=== PATIENT | female | born 1930 | race Hispanic/Latino ===

== ENCOUNTER 2018-05-02 16:30 | Emergency (ER) | payer MEDICARE ==
[~2018-05-02] VITALS: Ht 152.4 cm; Wt 38.1 kg
--- OUTSIDE RECORDS SUMMARY | 2018-05-02 16:33 | XMS REPORT | Continuity of Care Document ---
Author Author [facility] Interface Address Unknown Phone Unavailable Problems Problem Status Onset Date Classification Date Reported Comments Source J47.9 Active 01/30/2018 [facility] Calculus of gallbladder with chronic cholecystitis without obstruction 07/18/2017 10/08/2017 [facility] Generalized abdominal pain 07/01/2017 09/30/2017 [facility] UNK Active 06/30/2017 [facility] UNK Active 06/30/2017 [facility] DX: R63.4=ABNORMAL WEIGHT LOSS, R10.84=G Active 06/20/2017 [facility] DX: J47.9=BRONCHIECTASIS, UNCOMPLICATED Active 02/27/2017 [facility] DX: J47.9=BRONCHIECTASIS, UNCOMPLICATED Active 02/27/2017 [facility] PNEUMONIA Active 09/18/2016 [facility] WEAKNESS Active 09/18/2016 [facility] Hip pain<sup>8, 9, 10</sup> Active 07/11/2014 Problem 2017 Data migrated from [employer] on 10/11/14. [facility] Rib pain<sup>15, 16, 17</sup> Active 07/11/2014 Problem 2017 Data migrated from [employer] on 10/11/14. [facility] Rib pain<sup>16, 17, 18</sup> Active 07/11/2014 Problem 08/03/2015 Data migrated from [employer] on 10/11/14. [facility] Lightheadedness<sup>11</sup> Active 02/07/2014 Problem 2017 Data migrated from [employer] on 10/11/14. [facility] Dyspnea<sup>5</sup> Active 01/18/2014 Problem 2017 Data migrated from [employer] on 10/11/14. [facility] Neck pain<sup>12</sup> Active 01/18/2014 Problem 2017 Data migrated from [employer] on 10/11/14. [facility] Gastroesophageal reflux disease<sup>7</sup> Active 08/23/2013 Problem 2017 Data migrated from [employer] on 10/11/14. [facility] Pleuritic pain<sup>14</sup> Active 04/26/2013 Problem 2017 Data migrated from [employer] on 10/11/14. [facility] PNEUMONIA, CHEST PAIN Active 04/13/2013 [facility] CHEST PAINS Active 04/13/2013 [facility] Blepharitis<sup>2</sup> Active 01/07/2013 Problem 2017 Data migrated from [employer] on 10/11/14. [facility] Disorder of skin<sup>4</sup> Active 01/07/2013 Problem 2017 Data migrated from [employer] on 10/11/14. [facility] SCREENING Active 12/02/2012 [facility] Epigastric pain<sup>6</sup> Active 12/02/2011 Problem 2017 Data migrated from [employer] on 10/11/14. [facility] Varicose veins of lower extremity<sup>18</sup> Active 12/02/2011 Problem 2017 Data migrated from [employer] on 10/11/14. [facility] Varicose veins of lower extremity<sup>19</sup> Active 12/02/2011 Problem 08/03/2015 Data migrated from [employer] on 10/11/14. [facility] Preoperative procedures<sup>15</sup> Resolved 02/15/2011 Problem 08/03/2015 Data migrated from [employer] on 11/25/14. [facility] Blood chemistry abnormal<sup>3</sup> Active 05/30/2010 Problem 2017 Data migrated from [employer] on 10/11/14. [facility] Benign essential hypertension<sup>1</sup> Active 04/19/2008 Problem 2017 Data migrated from [employer] on 10/11/14. [facility] GI bleeding Resolved Problem 08/03/2015 [facility] HTN Resolved Problem 04/17/2013 [facility] HTN - Hypertension Resolved Problem 04/17/2013 [facility] Final: Other Acute Sinusitis 01/21/2014 [facility] Final: Other Dyspnea and Respiratory Abnormality 01/21/2014 [facility] Final: Cervicalgia 01/21/2014 [facility] HTN - Hypertension Resolved Problem 07/14/2014 [facility] High blood pressure Resolved Problem 2017 [facility] HTN Resolved Problem 2017 [facility] HTN - Hypertension Resolved Problem 2017 [facility] Osteoporosis<sup>13</sup> Active Problem 2017 Data migrated from [employer] on 10/11/14[facility] Severe protein-calorie malnutrition Active Problem 2017 [facility] Abnormal weight loss 09/30/2017 [facility] Cyst of kidney, acquired 09/30/2017 [facility] Splenomegaly, not elsewhere classified 09/30/2017 [facility] Diverticulosis of large intestine without perforation or abscess without bleeding 09/30/2017 [facility] Diaphragmatic hernia without obstruction or gangrene 09/30/2017 [facility] Fatty liver, not elsewhere classified 09/30/2017 [facility] Bronchiectasis, uncomplicated 09/30/2017 [facility] Atherosclerosis of aorta 09/30/2017 [facility] Other disorders of lung 09/30/2017 [facility] Essential hypertension 10/08/2017 [facility] Anemia, unspecified 10/08/2017 [facility] Gastro-esophageal reflux disease without esophagitis 10/08/2017 [facility] Other half-way drug therapy 10/08/2017 [facility] PNEUMONIA, ORGANISM NOS Active [facility] 461.8 Active [facility] 786.50, 719.45 Active [facility] CHEST PAIN NOS Active [facility] JOINT PAIN-PELVIS Active [facility] PALPITATIONS Active [facility] PAIN IN NECK Active [facility] PAIN, UNSPECIFIED Active [facility] PNEUMONIA, UNSPECIFIED ORGANISM Active [facility] BRONCHIECTASIS, UNCOMPLICATED Active [facility] ABNORMAL WEIGHT LOSS Active [facility] GENERALIZED ABDOMINAL PAIN Active [facility] Medications Medication Details Route Status Patient Instructions Ordering Provider Order Date Source 24 HR Diltiazem Hydrochloride 240 MG Extended Release Capsule [Cartia] See Instructions, # 90 unknown unit, TAKE ONE CAPSULE BY MOUTH DAILY FOR BLOOD PRESSURE, Pharmacy: [facility] [id number] Active 08/09/[facility] Ondansetron 4 MG Disintegrating Tablet [Zofran] 4 mg=1 tab, PO, Q4H, PRN Nausea, # 30 tab, 0 Refill(s) Active 07/04/2017 [facility] Albuterol 0.833 MG/ML / Ipratropium [place] 0.167 MG/ML Inhalant Solution [DuoNeb] 3 ml, Route: NEB, Drug Form: SOLN, Dosing Weight 40.71, kg, ONCE, PRN Respiratory Protocol, Start date: 07/02/17 15:31:00 [employer] SPLITTER Inactive 07/02/2017 [facility] Oxycodone Hydrochloride 5 MG Oral Tablet 5 mg, Route: PO, Drug form: TAB, ONCE, Dosing Weight 40.71, kg, PRN Pain Score 4-6, Start date: 07/02/17 14:02:00 [employer] SPLITTER Inactive 07/02/2017 [facility] Naloxone 0.4 mg, Route: IVP, Q2MIN, Dosing Weight 40.71, kg, PRN Narcotic Reversal, Start date: 07/02/17 13:02:00 [employer]ST[employer] SPLITTER, Duration: 8 doses or times, Stop date: Limited # of times Inactive 07/02/2017 [facility] Flumazenil 0.2 mg, Route: IVP, PRN, Dosing Weight 40.71, kg, PRN Benzodiazepine Reversal, Initial dose, Start date: 07/02/17 13:02:00 [employer]ST[employer] SPLIT[employer], Duration: 30 day, Stop date: 08/01/17 14:01:00 CDT Inactive 07/02/2017 [facility] Ondansetron 4 mg, Route: IVP, ONCE, Dosing Weight 40.71, kg, PRN Nausea & Vomiting, Start date: 07/02/17 13:02:00 [employer]ST[employer] SPLITTER Inactive 07/02/2017 [facility] Meperidine 12.5 mg, Route: IVP, Q30Min, Dosing Weight 40.71, kg, PRN Other -See Comment, For shivering, Start date: 07/02/17 13:02:00 [employer]ST[employer] SPLITTER, Duration: 2 doses or times, Stop date: Limited # of times Inactive 07/02/2017 [facility] Albuterol 0.83 MG/ML Inhalant Solution 2.49 mg, Route: NEB, Q20Min, Dosing Weight 40.71, kg, PRN Wheezing, Priority: STAT, Start date: 07/02/17 13:02:00 [employer]ST[employer] SPLITTER, Duration: 30 day, Stop date: 08/01/17 14:01:00 CDT Inactive 07/02/2017 [facility] Diphenhydramine 12.5 mg, Route: IVP, Drug form: INJ, Q6H, Dosing Weight 40.71, kg, PRN Itching, Start date: 07/02/17 13:02:00 [employer]ST[employer] SPLITTER, Duration: 30 day, Stop date: 08/01/17 13:01:00 CDT Inactive 07/02/2017 [facility] Promethazine 6.25 mg, Route: IVPB, ONCE, Dosing Weight 40.71, kg, PRN Nausea & Vomiting, Start date: 07/02/17 13:02:00 [employer]ST[employer] SPLITTER Inactive 07/02/2017 [facility] Labetalol 10 mg, Route: IVP, Q5Min, Dosing Weight 40.71, kg, PRN Elevated BP, Start date: 07/02/17 13:02:00 S[employer]STONE SPLITTER, Duration: 5 doses or times, Stop date: Limited # of times Inactive 07/02/2017 [facility] Hydralazine 10 mg, Route: IVP, Q20Min, Dosing Weight 40.71, kg, PRN Elevated BP, Start date: 07/02/17 13:02:00 S[employer]STONE SPLITTER, Duration: 2 doses or times, Stop date: Limited # of times Inactive 07/02/2017 [facility] esmolol 10 mg, Route: IVP, Q5Min, Dosing Weight 40.71, kg, PRN Other -See Comment, Start date: 07/02/17 13:02:00 S[employer]STONE SPLITTER, Duration: 5 doses or times, Stop date: Limited # of times Inactive 07/02/2017 [facility] Calcium Chloride 0.0014 MEQ/ML / Potassium Chloride 0.004 MEQ/ML / Sodium Chloride 0.103 MEQ/ML / Sodium Lactate 0.028 MEQ/ML Injectable Solution 1,000 mL, Rate: 125 ml/hr, Infuse over: 8 hr, Route: IV, Dosing Weight 40.71 kg, Total Volume: 1,000, Start date: 07/02/17 13:02:00 [employer]ST[employer] SPLITTER, Duration: 30 day, Stop date: 08/01/17 13:01:00 CDT, 1.31, m2 Inactive 07/02/2017 [facility] Fentanyl 25 microgram, Route: IVP, Q5Min, Dosing Weight 40.71, kg, PRN Pain Score 4-6, Priority: Routine, Start date: 07/02/17 13:02:00 [employer]ST[employer] SPLIT[employer], Duration: 4 doses or times, Stop date: Limited # of times Inactive 07/02/2017 [facility] neostigmine (ANES) Route: IV, Drug form: INJ, ONCE, Stop date: 07/02/17 12:52:00 [employer]ST[employer] SPLITTER Inactive 07/02/2017 [facility] glycopyrrolate (ANES) Route: IV, Drug form: INJ, ONCE, Stop date: 07/02/17 12:52:00 [employer]ST[employer] SPLITTER Inactive 07/02/2017 [facility] hydrALAZINE (ANES) Route: IV, Drug form: INJ, ONCE, Stop date: 07/02/17 12:52:00 [employer]ST[employer] SPLITTER Inactive 07/02/2017 [facility] Docusate Sodium 100 MG Oral Capsule [Colace] 100 mg=1 cap, PO, BID, PRN Constipation, # 20 cap, 0 Refill(s) Active 07/02/2017 [facility] tramadol hydrochloride 50 MG Oral Tablet 50 mg=1 tab, PO, Q6H, PRN Pain, X 10 day, # 40 tab, 0 Refill(s) No Longer Active 07/02/2017 [facility] ondansetron (ANES) Route: IV, Drug form: INJ, ONCE, Stop date: 07/02/17 12:40:00 [employer]STONE SPLITTER Inactive 07/02/2017 [facility] esmolol (ANES) Route: IV, Drug form: INJ, ONCE, Stop date: 07/02/17 12:40:00 [employer]ST[employer] SPLITTER Inactive 07/02/2017 [facility] rocuronium (ANES) Route: IV, Drug form: INJ, ONCE, Stop date: 07/02/17 12:35:00 [employer]ST[employer] SPLITTER Inactive 07/02/2017 [facility] propofol (ANES) Route: IV, Drug form: INJ, ONCE, Stop date: 07/02/17 12:35:00 [employer]ST[employer] SPLITTER Inactive 07/02/2017 [facility] fentaNYL (ANES) Route: IV, Drug form: INJ, ONCE, Stop date: 07/02/17 12:35:00 [employer]ST[employer] SPLITTER Inactive 07/02/2017 [facility] lidocaine (ANES) Route: IV, Drug form: INJ, ONCE, Stop date: 07/02/17 12:35:00 [employer]ST[employer] SPLITTER Inactive 07/02/2017 [facility] Lactated Ringers Injection IV (ANES) 1000 mL Route: IV, Total Volume: 1,000, Start date: 07/02/17 11:39:00 S[employer]STONE SPLITTER, Stop date: 07/02/17 12:39:00 [employer]ST[employer] SPLITTER Inactive 07/02/2017 [facility] ceFAZolin (ANES) 1000 mg Route: IV, Drug form: INJ, Start date: 07/02/17 11:39:00 SANDSTONE SPLITTER, Stop date: 07/02/17 12:39:00 [employer]ST[employer] SPLITTER Inactive 07/02/2017 [facility] Albuterol 0.833 MG/ML / Ipratropium [place] 0.167 MG/ML Inhalant Solution 3 mL, Route: NEB, Dosing Weight 40.71, kg, ONCE, STAT, Start date: 07/02/17 11:08:00 SANDSTONE SPLITTER, Stop date: 07/02/17 11:08:00 S[employer]STONE SPLITTER Inactive 07/02/2017 [facility] Calcium Chloride 0.0014 MEQ/ML / Potassium Chloride 0.004 MEQ/ML / Sodium Chloride 0.103 MEQ/ML / Sodium Lactate 0.028 MEQ/ML Injectable Solution 1,000 mL, Rate: 25 ml/hr, Infuse over: 40 hr, Route: IV, Dosing Weight 40.71 kg, Total Volume: 1,000, Start date: 07/02/17 11:08:00 [employer]ST[employer] SPLITTER, Duration: 30 day, Stop date: 08/01/17 11:07:00 CDT, 1.31, m2 Inactive 07/02/2017 [facility] Vitamin D3 1000 intl units oral tablet 1,000 IntlUnit=1 tab, PO, Daily, # 30 tab, 0 Refill(s) Active 07/01/2017 [facility] Ancef 2 gm, Route: IVPB, ONCE, Dosing Weight 40.71, kg, Start date: 07/01/17 11:57:00 S[employer]STONE SPLITTER, Stop date: 07/01/17 11:57:00 SANDSTONE SPLITTER, Surgical Prophylaxis Only; For patients No Longer Active 07/01/2017 [facility] Omnipaque 300 100 mL, Route: IV, Drug Form: SOLN, ONCE, Start date: 06/24/17 10:33:00 SANDSTONE SPLITTER, Stop date: 06/24/17 10:33:00 CSTNotes: (Same as:Omnipaque 300). WASTE: F/P - Black; E - Municipal Trash Bin Inactive 06/24/2017 [facility] celecoxib 200 MG Oral Capsule [Celebrex] 200 mg=1 cap, PO, BID, 0 Refill(s) Active 05/30/2017 [facility] azithromycin 500 mg oral tablet 500 mg, 2 tab, Route: PO, Drug form: TAB, Q-M-W-F, Dosing Weight 42.33, kg, Start date: 09/23/16 9:00:00 CDT, Duration: 30 day, Stop date: 10/21/16 9:00:00 CDTNotes: Take 1 hour before or 2 hours after meals. (Same As: Zithromax) No Longer Active 09/23/2016 [facility] Lisinopril 5 mg, Route: PO, Daily, Dosing Weight 42.33, kg, Start date: 09/22/16 9:00:00 CDT, Duration: 30 day, Stop date: 10/21/16 9:00:00 CDT No Longer Active 09/22/2016 [facility] Calcium Carbonate 1250 MG / Cholecalciferol 125 UNT Oral Tablet 1 tab, Route: PO, Drug Form: TAB, Dosing Weight 42.33, kg, Daily, Start date: 09/22/16 9:00:00 CDT, Duration: 30 day, Stop date: 10/21/16 9:00:00 CDTNotes: (Same As: Hilary-D, OsCal-D, Oyster Calcium) Inactive 09/22/2016 [facility] Brimonidine tartrate 2 MG/ML / Timolol 5 MG/ML Ophthalmic Solution [Combigan] 1 drp, Route: OPTH, Q12H, Drug form: SOLN, Start date: 09/21/16 21:00:00 CDT, Duration: 30 day, Stop date: 10/21/16 9:00:00 CDT Inactive 09/22/2016 [facility] Lisinopril 5 mg, 1 tab, Route: PO, Drug form: TAB, Daily, Dosing Weight 42.33, kg, Priority: STAT, Start date: 09/21/16 17:36:00 CDT, Duration: 30 day, Stop date: 10/21/16 9:00:00 CDTNotes: (Same as: Prinivil, Zestril) No Longer Active 09/21/2016 [facility] Lisinopril 5 mg, PO, Daily, 0 Refill(s) Active 09/21/2016 [facility] Hydralazine 10 mg, 0.5 mL, Route: IVP, Drug form: INJ, Q6H, Dosing Weight 42.33, kg, PRN Elevated BP, Start date: 09/21/16 16:59:00 CDT, Duration: 30 day, Stop date: 10/21/16 16:58:00 CDTNotes: (Same as: Apresol ine) Push over 5 minutes No Longer Active 09/21/2016 [facility] aspirin 81 mg tablet, enteric coated 81 mg=1 tab, PO, Daily, 0 Refill(s) On Hold 09/21/2016 [facility] doxycycline monohydrate 100 mg oral tablet 100 mg=1 tab, PO, Q12H, X 7 day, # 14 tab, 0 Refill(s), Pharmacy: [place] [id number] On Hold 09/21/2016 [facility] Rifampin 600 mg, 2 cap, Route: PO, Drug form: CAP, Q-M-W-F, Dosing Weight 42.33, kg, Start date: 09/20/16 18:00:00 CDT, Duration: 30 day, Stop date: 10/18/16 9:00:00 CDTNotes: (Same as: Rifadin) No Longer Active 09/20/2016 [facility] Ethambutol 1,200 mg, 3 tab, Route: PO, Drug form: TAB, Q-M-W-F, Dosing Weight 42.33, kg, Start date: 09/20/16 18:00:00 CDT, Duration: 30 day, Stop date: 10/18/16 9:00:00 CDTNotes: (Same as: Myambutol) No Longer Active 09/20/2016 [facility] Fluticasone propionate 0.05 MG/ACTUAT Metered Dose Nasal [place] 2 spray, Route: NASAL, Drug Form: SPRY, Dosing Weight 43.182, kg, Daily, Start date: 09/20/16 9:00:00 CDT, Duration: 30 day, Stop date: 10/19/16 9:00:00 CDTNotes: (Same as: Flonase) No Longer Active 09/20/2016 [facility] Rocephin 1 gm, Route: IVPB, [id number], Dosing Weight 43.182, kg, Start date: 09/20/16 0:00:00 CDT, Duration: 30 day, Stop date: 10/19/16 0:00:00 CDTNotes: (Same As: Rocephin). Use with 100 mL NS and infuse over 30 min MEDICATION WASTE Product Size: 1000 mg Product Wasted: ___ mg Inactive 09/20/2016 [facility] Brimonidine tartrate 2 MG/ML / Timolol 5 MG/ML Ophthalmic Solution [Combigan] 1 drp, Route: OPTH, Q12H, Drug form: SOLN, Start date: 09/19/16 21:00:00 CDT, Duration: 30 day, Stop date: 10/19/16 9:00:00 CDT Inactive 09/20/2016 [facility] Sodium Chloride 3% inhalation solution 4 mL, Route: NEB, Drug Form: SOLN, ONCE, Start date: 09/19/16 19:24:00 CDT, Stop date: 09/19/16 19:24:00 CDTNotes: SEE RT DOCUMENTATION (Same as: Hypertonic Saline 3%, Inhalation) Inactive 09/20/2016 [facility] Sodium Chloride 1.2 MEQ/ML Inhalant Solution 4 mL, Route: NEB, Drug Form: AERO, Dosing Weight 42.33, kg, ONCE, Start date: 09/19/16 18:40:00 CDT, Stop date: 09/19/16 18:40:00 CDT, Pediatric Dosing Inactive 09/19/2016 [facility] Cyclosporine 1 drp, Route: BOTH EYES, BID, Drug form: DROP, Start date: 09/19/16 17:00:00 CDT, Duration: 30 day, Stop date: 10/19/16 9:00:00 CDTNotes: (Same as: Restasis) No Longer Active 09/19/2016 [facility] timolol ophthalmic 1 drp, Route: OPTH, BID, Drug form: SOLN, Start date: 09/19/16 17:00:00 CDT, Duration: 30 day, Stop date: 10/19/16 9:00:00 CDTNotes: (Same As: Timoptic, Betimol) No Longer Active 09/19/2016 [facility] brimonidine ophthalmic 1 drp, Route: OPTH, BID, Drug form: SOLN, Start date: 09/19/16 17:00:00 CDT, Duration: 30 day, Stop date: 10/19/16 9:00:00 CDTNotes: (Same As: Alphagan) No Longer Active 09/19/2016 [facility] Cartia XT 240 mg, 1 cap, Route: PO, Drug form: ERCAP, Daily, Dosing Weight 43.182, kg, Start date: 09/19/16 11:00:00 CDT, Duration: 30 day, Stop date: 10/19/16 9:00:00 CDTNotes: (Same as: Cardizem CD) Before meals. DO NOT CRUSH. No Longer Active 09/19/2016 [facility] Aspirin Enteric Coated 81 mg, 1 tab, Route: PO, Drug form: ECTAB, Daily, Dosing Weight 43.182, kg, Start date: 09/19/16 11:00:00 CDT, Duration: 30 day, Stop date: 10/19/16 9:00:00 CDTNotes: Do not crush or chew. (Same As: Ecotrin) No Longer Active 09/19/2016 [facility] Albuterol 0.833 MG/ML / Ipratropium [place] 0.167 MG/ML Inhalant Solution [DuoNeb] 3 ml, Route: NEB, Drug Form: SOLN, Dosing Weight 43.182, kg, PRN, PRN Respiratory Protocol, Start date: 09/19/16 9:37:00 CDT, Duration: 30 day, Stop date: 10/19/16 9:36:00 CDTNotes: (Same as: Duoneb) No Longer Active 09/19/2016 [facility] Azithromycin 500 MG Oral Tablet [Zithromax] 500 mg, 2 tab, Route: PO, Drug form: TAB, Daily, Dosing Weight 43.182, kg, Start date: 09/19/16 6:00:00 CDT, Duration: 30 day, Stop date: 10/18/16 6:00:00 CDTNotes: Take 1 hour before or 2 hours after meals. (Same As: Zithromax) No Longer Active 09/19/2016 [facility] Morphine 2 mg, 1 mL, Route: IVP, Drug form: INJ, Q4H, Dosing Weight 43.182, kg, PRN Pain Score 7-10, Start date: 09/19/16 1:37:00 CDT, Duration: 30 day, Stop date: 10/19/16 1:36:00 CDTNotes: (Same as:MORPhine Sulfate) No Longer Active 09/19/2016 [facility] Ondansetron 4 mg, 2 mL, Route: IVP, Drug form: INJ, Q6H, Dosing Weight 43.182, kg, PRN Nausea & Vomiting, Start date: 09/19/16 1:37:00 CDT, Duration: 30 day, Stop date: 10/19/16 1:36:00 CDTNotes: (Same as: Shalom) MEDICATION WASTE Product Size: 4 mg Product Wasted: ___ mg No Longer Active 09/19/2016 [facility] Nitroglycerin 0.4 MG Sublingual Tablet 0.4 mg, 1 tab, Route: SL, Drug form: TAB, Q5Min, Dosing Weight 43.182, kg, PRN Chest Pain, Start date: 09/19/16 0:49:00 CDT, Duration: 3 doses or times, Stop date: Limited # of timesNotes: (Same as:Nitroquick, Nitrostat) "Do Not Crush" Sublingual tablet No Longer Active 09/19/2016 [facility] Atropine 0.5 mg, 5 mL, Route: IVP, Drug form: INJ, ONCE, Dosing Weight 43.182, kg, PRN Bradycardia, Start date: 09/19/16 0:49:00 CDT No Longer Active 09/19/2016 [facility] Ceftriaxone 1 gm, Route: IVPB, ONCE, Dosing Weight 43.182, kg, Priority: STAT, Start date: 09/18/16 23:09:00 CDT, Stop date: 09/18/16 23:09:00 CDTNotes: (Same As: Rocephin). Use with 100 mL NS and infuse over 30 m in MEDICATION WASTE Product Size: 1000 mg Product Wasted: ___ mg Inactive 09/19/2016 [facility] Sodium Chloride 0.154 MEQ/ML Injectable Solution 1,000 mL, Rate: 75 ml/hr, Infuse over: 13.3 hr, Route: IV, Dosing Weight 43.182 kg, Total Volume: 1,000, Priority: STAT, Start date: 09/18/16 23:09:00 CDT, Duration: 1 doses or times, Stop date: 09/19/16 12:26:00 CDT Inactive 09/19/2016 [facility] Azithromycin 500 mg, Route: IVPB, ONCE, Dosing Weight 43.182, kg, Priority: STAT, Start date: 09/18/16 23:09:00 CDT, Stop date: 09/18/16 23:09:00 CDTNotes: (Same As: Zithromax IV) No Longer Active 09/19/2016 [facility] Saline Flush 0.9% 10 mL, Route: IVP, Drug Form: INJ, Dosing Weight 43.182, kg, PRN, PRN Line Flush, Start date: 09/18/16 14:47:00 CDT, Duration: 30 day, Stop date: 10/18/16 14:46:00 CDTNotes: (Same as: BD Posiflush) No Longer Active 09/18/2016 [facility] levofloxacin 500 mg oral tablet 500 mg=1 tab, PO, Daily, # 5 tab, 0 Refill(s) Active Elvis 04/15/2013 [facility] benzonatate 100 mg oral capsule 100 mg=1 cap, PO, TID, Cough, # 10 cap, 0 Refill(s) Active Elvis 04/15/2013 [facility] calcium-vitamin D 500 mg-125 units oral tablet 1 tab, Route: PO, Drug Form: TAB, Dosing Weight 52.273, kg, Daily, Start date: 04/14/13 9:00:00, Duration: 30 day, Stop date: 05/13/13 9:00:00(Same As: Hilary-D, OsCal- D, Oyster Calcium) No Longer Active Alessandro 04/14/2013 [facility] cycloSPORINE ophthalmic 1 drp, Route: BOTH EYES, BID, Drug form: DROP, Start date: 04/14/13 9:00:00, Duration: 30 day, Stop date: 05/13/13 17:00:00(Same as: Restasis) No Longer Active Alessandro 04/14/2013 [facility] aspirin 81 mg, 1 tab, Route: PO, Drug form: ECTAB, Daily, Dosing Weight 52.273, kg, Start date: 04/14/13 9:00:00, Duration: 30 day, Stop date: 05/13/13 9:00:00Do not crush or chew. (Same As: Ecotrin) No Longer Active Alessandro 04/14/2013 [facility] Combigan ophthalmic solution 1 drp, Route: BOTH EYES, Q12H, Drug form: SOLN, Start date: 04/13/13 21:00:00, Duration: 30 day, Stop date: 05/13/13 9:00:00 Inactive Alessandro 04/14/2013 [facility] Dilt-XR 240 mg, 1 cap, Route: PO, Drug form: ERCAP, Bedtime, Dosing Weight 52.273, kg, Start date: 04/13/13 21:00:00, Duration: 30 day, Stop date: 05/12/13 21:00:00(Same as: Cardizem CD) Before meals. DO NOT CRUSH. No Longer Active Alessandro 04/14/2013 [facility] timolol ophthalmic 1 drp, Route: BOTH EYES, Q12H, Drug form: SOLN, Start date: 04/13/13 21:00:00, Duration: 30 day, Stop date: 05/13/13 9:00:00(Same As: Timoptic, Betimol) No Longer Active Alessandro 04/14/2013 [facility] brimonidine ophthalmic 1 drp, Route: BOTH EYES, Q12H, Drug form: SOLN, Start date: 04/13/13 21:00:00, Duration: 30 day, Stop date: 05/13/13 9:00:00(Same As: Alphagan) No Longer Active Alessandro 04/14/2013 [facility] ceftriaxone + Sodium Chloride 0.9% IV 100 mL 1 gm, Route: IVPB, [id number], Dosing Weight 52.273, kg, Priority: Routine, Start date: 04/13/13 19:00:00, Duration: 30 day, Stop date: 05/12/13 19:00:00(Same As: Rocephin). Use with 100ml NS mini-bag PLUS and infuse over 30 min No Longer Active Al-Azzejosie 04/14/2013 [facility] azithromycin 500 mg, 250 mL, Route: IVPB, Drug form: PDR/INJ, [id number], Dosing Weight 52.273, kg, Priority: Routine, Start date: 04/13/13 19:00:00, Duration: 30 day, Stop date: 05/12/13 19:00:00Same as: Zithromax No Longer Active Al-Azzeh 04/14/2013 [facility] Restoril 7.5 mg, 1 cap, Route: PO, Drug form: CAP, Bedtime, PRN Sleep, Start date: 04/13/13 18:49:00, Duration: 30 day, Stop date: 05/13/13 18:48:00(Same As: Restoril) No Longer Active Alessandro 04/14/2013 [facility] DuoNeb inhalation solution 3 ml, Route: INHALATION, Drug Form: SOLN, Dosing Weight 52.273, kg, RQ4H, PRN Respiratory Protocol, Start date: 04/13/13 18:46:00, Duration: 30 day, Stop date: 05/13/13 18:45:00(Same as: Duoneb) No Longer Active Alessandro 04/14/2013 [facility] Ambien 5 mg, Route: PO, Bedtime, Dosing Weight 52.273, kg, PRN Sleep, Start date: 04/13/13 18:45:00, Duration: 30 day, Stop date: 05/13/13 18:44:00 Inactive Alessandro 04/14/2013 [facility] Tessalon Perles 100 mg, 1 cap, Route: PO, Drug form: CAP, TID, Dosing Weight 52.273, kg, PRN Cough, Start date: 04/13/13 18:44:00, Duration: 30 day, Stop date: 05/13/13 18:43:00(Same As: Tessalon Perles) "Do Not Crush" No Longer Active Alessandro 04/14/2013 [facility] nitroglycerin 0.4 mg sublingual tablet 0.4 mg, 1 tab, Route: SL, Drug form: TAB, Q5Min, PRN Chest Pain, Start date: 04/13/13 18:43:00, Duration: 30 day, Stop date: 05/13/13 18:42:00(Same as:Nitroquick, Nitrostat) "Do Not Crush" Sublingual tablet No Longer Active Alessandro 04/14/2013 [facility] atropine 0.5 mg, 5 mL, Route: IVP, Drug form: INJ, PRN, PRN Bradycardia, Start date: 04/13/13 18:43:00, Duration: 30 day, Stop date: 05/13/13 18:42:00 No Longer Active Alessandro 04/14/2013 [facility] ondansetron 4 mg, 2 mL, Route: IVP, Drug form: INJ, Q6H, Dosing Weight 52.273, kg, PRN Nausea & Vomiting, Start date: 04/13/13 18:13:00, Duration: 30 day, Stop date: 05/13/13 18:12:00(Same as: Zofran) No Longer Active Al-Azzeh 04/14/2013 [facility] acetaminophen 650 mg, 2 tab, Route: PO, Drug form: TAB, Q4H, Dosing Weight 52.273, kg, PRN Pain Score 1-3, For fever > 100.4. Not to exceed 4 grams in 24 hours, Start date: 04/13/13 18:13:00, Duration: 30 day, Sto p date: 05/13/13 18:12:00Do not exceed 4 gm/day. (Same as: Tylenol) No Longer Active Al-Azzeh 04/14/2013 [facility] Restasis 0.05% ophthalmic emulsion 1 drp, BOTH EYES, BID, # 1 pkg, 0 Refill(s) Active 04/13/2013 [facility] Combigan ophthalmic solution 1 drp, OPTH, Q12H, # 10 ml, 0 Refill(s) Active 04/13/2013 [facility] calcium-vitamin D 500 mg-125 units oral tablet 1 tab, PO, Daily, # 250 tab, 0 Refill(s) Active 04/13/2013 [facility] Aspirin Enteric Coated 81 mg oral delayed release tablet 81 mg=1 tab, PO, Daily, 0 Refill(s) Active 04/13/2013 [facility] Dilt-XR 240 mg/24 hours oral capsule, extended release 240 mg=1 cap, PO, Bedtime, 0 Refill(s) Active 04/13/2013 [facility] Celebrex 200 mg oral capsule 200 mg=1 cap, PO, Daily, Pain, # 10 cap, 0 Refill(s) Active 04/13/2013 [facility] DuoNeb inhalation solution 3 ml, Route: INHALATION, Drug Form: SOLN, Dosing Weight 52.273, kg, PRN, PRN Respiratory Protocol, Start date: 12/03/13 14:27:00, Duration: 30 day, Stop date: 05/13/13 14:26:00(Same as: Duoneb) No Longer Active [facility] 04/13/2013 [facility] aspirin 324 mg, Route: CHEW, Drug form: CHEWTAB, ONCE, Dosing Weight 52.273, kg, Priority: STAT, Start date: 04/13/13 14:27:00, Stop date: 04/13/13 14:27:00 Inactive [facility] 04/13/2013 [facility] Allergies, Adverse Reactions, Alerts Substance Category Reaction Severity Reaction type Status Date Reported Comments Source codeine<sup>1</sup> Assertion Drug allergy Active 03/20/2007 Data migrated from [employer] on 07/12/15. Originally documented as CODEINE. [facility] codeine Assertion Drug allergy Active [facility] HYDROcodone Assertion Drug allergy Active [facility] Immunizations Immunization Date Given Site Status Last Updated Comments Source influenza virus vaccine, inactivated<sup>1</sup> 03/17/2013 completed GE Result Comment: fluzone preservative free (>3 yrs.) [[id number]]. Migrated from OBS ; Data migrated from [employer] on 06/12/2015. [facility] Results Order Name Results Value Reference Range Date Interpretation Comments Source Chest 2 views DX Chest 2 views DX Clinical Indication: - bronchiectasis, uncomplicated Comparison: 09/29/2017 FINDINGS: The PA and lateral chest radiographs shows hyperinflated lung volumes without pleural effusions or pneumothorax. There has been interval movement of the lingular infiltrate. There are bilateral increased interstitial markings which are unchanged. The heart size and pulmonary vasculature are normal. The trachea is midline. There are no clinically significant osseous abnormalities noted. IMPRESSION: 1. Findings consistent with chronic obstructive pulmonary disease. 2. Interval improvement in lingular infiltrate. SL: [id number] 01/30/2018 - - Read by: Sami Vaz MD Dictated Date/time: 01/30/18 14:58 Electronically Signed by: Sami Vaz MD 01/30/18 15:00 FINAL REPORT [facility] Chest 2 views DX Chest 2 views DX Clinical Indication: Pulmonary nodules Comparison: September 18, 2016 FINDINGS: The PA and lateral chest radiographs shows hyperinflated lung volumes without airspace opacities, pleural effusions or pneumothorax. There are increased interstitial markings with nodules which is most prominent in the lingula. There has been no significant interval change. The heart size and pulmonary vasculature are normal. The trachea is midline. There are no clinically significant osseous abnormalities noted. IMPRESSION: 1. No acute intracranial abnormality. 2. Mild increased interstitial markings along with nodular densities which are relatively unchanged when compared to previous exam. SL: [id number] 09/29/2017 - - Read by: Sami Vaz MD Dictated Date/time: 09/29/17 13:42 Electronically Signed by: Sami Vaz MD 09/29/17 13:45 FINAL REPORT [facility] CHEM PANEL eGFR 77 mL/min/1.73m2 07/01/2017 Result Comment: The eGFR is calculated using the CKD-EPI formula. In most young, healthy individuals the eGFR will be >90 mL/min/1.73m2. The eGFR declines with age. An eGFR of 60-89 may be normal in some populations, particularly the elderly, for whom the CKD-EPI formula has not been extensively validated. Use of the eGFR is not recommended in the following populations: Individuals with unstable creatinine concentrations, including patients and those with serious co-morbid conditions. Patients with extremes in muscle mass or diet. The data above are obtained from the National Kidney Disease Education Program (NKDEP) which additionally recommends that when the eGFR is used in patients with extremes of body mass index for purposes of drug dosing, the eGFR should be multiplied by the estimated BMI. [facility] CHEM PANEL Sodium Lvl 135 meq/L 135 - 145 07/01/2017 [facility] CHEM PANEL Potassium Lvl 5.3 meq/L 3.5 - 5.1 07/01/2017 [facility] CHEM PANEL Glucose Lvl 101 mg/dL 70 - 99 07/01/2017 [facility] CHEM PANEL BUN 12 mg/dL 7 - 22 07/01/2017 [facility] CHEM PANEL Creatinine Lvl 0.72 mg/dL 0.50 - 1.40 07/01/2017 [facility] CHEM PANEL Calcium Lvl 9.9 mg/dL 8.5 - 10.5 07/01/2017 [facility] CHEM PANEL Chloride Lvl 101 meq/L 95 - 109 07/01/2017 [facility] CHEM PANEL CO2 31 meq/L 24 - 32 07/01/2017 [facility] CHEM PANEL Albumin Lvl 3.5 g/dL 3.5 - 5.0 07/01/2017 [facility] CHEM PANEL Total Protein 7.7 g/dL 6.4 - 8.4 07/01/2017 [facility] CHEM PANEL ALT 17 unit/L 0 - 65 07/01/2017 [facility] CHEM PANEL AST 19 unit/L 0 - 37 07/01/2017 [facility] CHEM PANEL Alk Phos 64 unit/L 39 - 136 07/01/2017 [facility] CHEM PANEL Bili Total 0.4 mg/dL 0.2 - 1.3 07/01/2017 [facility] CHEM PANEL Globulin 4.2 g/dL 2.7 - 4.2 07/01/2017 [facility] CHEM PANEL A/G Ratio 0.8 0.7 - 1.6 07/01/2017 [facility] CHEM PANEL AGAP 8.3 meq/L 10.0 - 20.0 07/01/2017 [facility] CHEM PANEL B/C Ratio 17 6 - 25 07/01/2017 [facility] HEMATOLOGY Platelet 207 K/CMM 133 - 450 07/01/2017 [facility] MPV 7.0 fL 7.4 - 10.4 07/01/2017 [facility] MCH 28.3 pg 27.0 - 31.0 07/01/2017 [facility] MCHC 33.6 g/dL 32.0 - 36.0 07/01/2017 [facility] HEMATOLOGY RDW 15.5 % 11.5 - 14.5 07/01/2017 [facility] HEMATOLOGY Hct 34.1 % 36.0 - 48.0 07/01/2017 [facility] HEMATOLOGY MCV 84.3 fL 80.0 - 98.0 07/01/2017 [facility] Hgb 11.5 g/dL 12.0 - 16.0 07/01/2017 [facility] HEMATOLOGY WBC 8.8 K/CMM 3.7 - 10.4 07/01/2017 [facility] HEMATOLOGY RBC 4.05 M/CMM 4.20 - 5.40 07/01/2017 [facility] HEMATOLOGY Lymphocytes # 1.7 K/CMM 1.0 - 5.5 07/01/2017 [facility] HEMATOLOGY Monocytes # 0.8 K/CMM 0.0 - 0.8 07/01/2017 [facility] HEMATOLOGY Eosinophils # 0.3 K/CMM 0.0 - 0.5 07/01/2017 [facility] HEMATOLOGY Monocytes 9.4 % 2.0 - 12.0 07/01/2017 [facility] HEMATOLOGY Eosinophils 3.1 % 0.0 - 4.0 07/01/2017 [facility] HEMATOLOGY Lymphocytes 19.0 % 20.0 - 40.0 07/01/2017 [facility] HEMATOLOGY Segs-Bands # 6.0 K/CMM 1.5 - 8.1 07/01/2017 [facility] HEMATOLOGY Basophils 0.5 % 0.0 - 1.0 07/01/2017 [facility] HEMATOLOGY Segs 68.0 % 45.0 - 75.0 07/01/2017 [facility] CHEM PANEL eGFR 84 mL/min/1.73m2 06/24/2017 Result Comment: The eGFR is calculated using the CKD-EPI formula. In most young, healthy individuals the eGFR will be >90 mL/min/1.73m2. The eGFR declines with age. An eGFR of 60-89 may be normal in some populations, particularly the elderly, for whom the CKD-EPI formula has not been extensively validated. Use of the eGFR is not recommended in the following populations: Individuals with unstable creatinine concentrations, including patients and those with serious co-morbid conditions. Patients with extremes in muscle mass or diet. The data above are obtained from the National Kidney Disease Education Program (NKDEP) which additionally recommends that when the eGFR is used in patients with extremes of body mass index for purposes of drug dosing, the eGFR should be multiplied by the estimated BMI. [facility] CHEM PANEL POC Creatinine 0.6 mg/dL 0.5 - 1.4 06/24/2017 [facility] Abdomen/Pelvis w IV contrast CT Abdomen/Pelvis w IV contrast CT Patient Name: BRE PINA : 1930; Age: 86 years y/o Female MR: [id number] * I. COMPUTED TOMOGRAPHY SCAN OF THE ABDOMEN with contrast. * II. COMPUTED TOMOGRAPHY SCAN OF THE PELVIS with contrast HISTORY: Generalized nonspecific abdominal pain. COMPARISON: None * TECHNIQUE: I. COMPUTED TOMOGRAPHY SCAN OF THE ABDOMEN with contrast: Helical CT images were obtained on a multidetector computed tomography from the domes the diaphragms to the iliac crests following the intravenous administration of nonionic iodinated contrast. Oral contrast was also provided. II. COMPUTED TOMOGRAPHY SCAN OF THE PELVIS with contrast: Helical CT images were obtained on a multidetector computed tomography from the iliac crests to the pubic symphysis following the intravenous administration of nonionic iodinated contrast. Oral contrast was also provided. Coronal and sagittal reconstructions were obtained. CT radiation dose DLP: 249 mGy-cm FINDINGS: There is no evidence of an acute intra-abdominal process. There is no free intraperitoneal gas, intra-abdominal abscess, focal inflammation, or bowel obstruction. There is mild splenomegaly. The spleen measures 12.5 cm in length. There are mild diffuse fatty change involving the liver. The liver is otherwise unremarkable. No focal lesions are seen. The pancreas and adrenal glands are unremarkable. The kidneys are normal in size and show good, symmetrical enhancement The liver, spleen, pancreas, and adrenal glands are normal in appearance. The kidneys are slightly small in size but probably within normal limits for the patient's age. There is good symmetrical enhancement without hydronephrosis. No calculi are seen. There are a few small bilateral renal cysts. There is extensive sigmoid diverticulosis without evidence of diverticulitis. The gastrointestinal structures are otherwise unremarkable. There is no evidence of obstruction or ileus. The appendix is not definitely visualized. Hhere is no evidence of appendicitis. There is an approximately 3 cm left lower pelvic cyst adjacent to the bladder. This could represent an ovarian remnant cyst or possibly a bladder diverticulum. No mass or adenopathy is seen within the abdomen or pelvis. There is no ascites or other fluid collection. The aorta is normal in caliber. There are extensive atherosclerotic calcifications. There are reticulonodular densities in the lung bases and areas of bronchiectasis, particularly involving the right middle lobe and lower lingula. This is probably related to inflammatory disease and is essentially unchanged from a computed tomography scan of 03/07/2017. Please refer to that report. The heart is normal in size. There is no pericardial effusion. There are degenerative changes throughout the visualized spine. The osseous structures are otherwise unremarkable. No blastic or destructive lesions are seen. IMPRESSION: 1. No evidence of an acute intra-abdominal process. 2. Extensive sigmoid diverticulosis without evidence of diverticulitis. 3. Very small hiatal hernia. 4. 3 cm cystic lesion in the left lower pelvis which could represent an ovarian remnant cyst or bladder diverticula. 5. Mild splenomegaly. 6. Mild diffuse fatty change involving the liver. 7. Atherosclerosis. 8. Small renal cysts. 9. Reticulonodular densities and bronchiectasis are noted in the lung bases. Please refer to the computed tomography scan of the chest at 03/07/2017. SL: [id number] 06/24/2017 - - Read by: Clarence Murrell MD Dictated Date/time: 06/24/17 13:04 Electronically Signed by: Clarence Murrell MD 06/24/17 13:10 FINAL REPORT [facility] Spine lumbar 2 or 3 views DX Spine lumbar 2 or 3 views DX Patient Name: BRE PINA : 1930; Age: 86 years y/o Female MR: [id number] Study: Spine lumbar 2 or 3 views DX 05/01/2017 4:39 PM [employer] Ordering Physician: Clinical Indication: - M54.42 Lumbago with sciatica, left side; Comparison: None Lumbar spine 2 views Lumbar scoliosis convex to the right centered at L3-L4. There is multilevel degenerative spondylosis with disc space narrowing, endplate irregularity and endplate osteophytes. Severe disc space narrowing at L4-L5 and L5-S1. There is no additional lumbar spine fracture, subluxation or lesion. Sacroiliac joints are normal. IMPRESSION: Lumbar spine scoliosis, degenerative spondylosis. SL: [id number] 05/01/2017 - - Read by: Rony Ring MD Dictated Date/time: 05/02/17 08:11 Electronically Signed by: Rony Ring MD 05/02/17 08:12 FINAL REPORT [facility] Chest wo contrast CT Chest wo contrast CT Clinical Indication: Bronchiectasis uncomplicated Comparison: Chest CT 09/18/2016, chest x-ray 09/18/2016 TECHNIQUE: Sequential trans-axial images were obtained thru the chest and upper abdomen [<without>] administration of iodinated contrast. Coronal and sagittal reconstructions were obtained. CT Radiation Dose DLP 116 mGy-cm FINDINGS: LUNG PARENCHYMA AND PLEURA: Multiple bilateral lung nodules, several of which are new or increased (for instance right upper lobe 6 mm nodule (series 4 image 13) a right upper lobe nodular opacity on a prior examination has decreased or resolved. Prognosis primarily in the right middle lobe and lingula. Multiple collateral tree-in-bud opacities which are overall slightly increased. There is no interstitial lung disease. There is no pleural effusion. There is no pneumothorax. AIRWAY: The central airway is normal. MEDIASTINUM: The non-contrast enhanced images of the mediastinum show no definite mediastinal lymphadenopathy. There is no cardiomegaly. There is no pericardial effusion. No coronary artery calcifications. No acute abnormalities of the aorta. Atherosclerotic disease. Incidental right- sided aortic arch, normal variant. Pulmonary arteries are unremarkable. BONES AND SOFT TISSUES: There are no acute osseous abnormalities seen. Exaggerated thoracic kyphosis. VISUALIZED NON-CONTRAST ENHANCED UPPER ABDOMEN: No acute abnormalities. IMPRESSION: 1. Overall slight progression of tiny bilateral pulmonary nodules since 09/18/2016. Differential diagnosis remains unchanged, and includes PAULINE or fungal infection, or less likely sarcoidosis and lymphangitic carcinomatosis. SL: RADHA 03/07/2017 - - Read by: Quique Paulino MD Dictated Date/time: 03/07/17 17:20 Electronically Signed by: Quique Paulino MD 03/07/17 17:28 FINAL REPORT [facility] CHEM PANEL Procalcitonin Lvl <0.05 ng/mL 0.00 - 0.10 09/21/2016 [facility] ELECTROLYTES AGAP 12.0 meq/L 10.0 - 20.0 09/20/2016 [facility] ELECTROLYTES eGFR 85 mL/min/1.73m2 09/20/2016 Result Comment: The eGFR is calculated using the CKD-EPI formula. In most young, healthy individuals the eGFR will be >90 mL/min/1.73m2. The eGFR declines with age. An eGFR of 60-89 may be normal in some populations, particularly the elderly, for whom the CKD-EPI formula has not been extensively validated. Use of the eGFR is not recommended in the following populations: Individuals with unstable creatinine concentrations, including patients and those with serious co-morbid conditions. Patients with extremes in muscle mass or diet. The data above are obtained from the National Kidney Disease Education Program (NKDEP) which additionally recommends that when the eGFR is used in patients with extremes of body mass index for purposes of drug dosing, the eGFR should be multiplied by the estimated BMI. [facility] ELECTROLYTES Creatinine Lvl 0.59 mg/dL 0.50 - 1.40 09/20/2016 [facility] ELECTROLYTES BUN 7 mg/dL 7 - 22 09/20/2016 [facility] ELECTROLYTES Sodium Lvl 137 meq/L 135 - 145 09/20/2016 [facility] ELECTROLYTES Glucose Lvl 103 mg/dL 70 - 99 09/20/2016 [facility] ELECTROLYTES Potassium Lvl 4.0 meq/L 3.5 - 5.1 09/20/2016 [facility] ELECTROLYTES CO2 26 meq/L 24 - 32 09/20/2016 [facility] ELECTROLYTES Chloride Lvl 103 meq/L 95 - 109 09/20/2016 [facility] ELECTROLYTES Calcium Lvl 8.6 mg/dL 8.5 - 10.5 09/20/2016 [facility] MCHC 33.3 g/dL 32.0 - 36.0 09/20/2016 [facility] RDW 15.4 % 11.5 - 14.5 09/20/2016 [facility] MCV 81.1 fL 80.0 - 98.0 09/20/2016 [facility] MCH 27.0 pg 27.0 - 31.0 09/20/2016 [facility] MPV 7.2 fL 7.4 - 10.4 09/20/2016 [facility] Platelet 207 K/CMM 133 - 450 09/20/2016 [facility] RBC 3.87 M/CMM 4.20 - 5.40 09/20/2016 [facility] WBC 7.0 K/CMM 3.7 - 10.4 09/20/2016 [facility] Hct 31.4 % 36.0 - 48.0 09/20/2016 [facility] Hgb 10.4 g/dL 12.0 - 16.0 09/20/2016 [facility] Monocytes # 0.9 K/CMM 0.0 - 0.8 09/20/2016 [facility] HEMATOLOGY Segs-Bands # 3.9 K/CMM 1.5 - 8.1 09/20/2016 [facility] Lymphocytes # 1.7 K/CMM 1.0 - 5.5 09/20/2016 [facility] HEMATOLOGY Eosinophils 6.1 % 0.0 - 4.0 09/20/2016 [facility] HEMATOLOGY Basophils 0.9 % 0.0 - 1.0 09/20/2016 [facility] HEMATOLOGY Eosinophils # 0.4 K/CMM 0.0 - 0.5 09/20/2016 [facility] HEMATOLOGY Basophils # 0.1 K/CMM 0.0 - 0.2 09/20/2016 [facility] HEMATOLOGY Monocytes 12.8 % 2.0 - 12.0 09/20/2016 [facility] HEMATOLOGY Lymphocytes 24.4 % 20.0 - 40.0 09/20/2016 [facility] HEMATOLOGY Segs 55.8 % 45.0 - 75.0 09/20/2016 [facility] IMMUNOLOGY Prealbumin 13.8 mg/dL 18.0 - 45.0 09/20/2016 [facility] CHEM PANEL B/C Ratio 13 6 - 25 09/19/2016 [facility] CHEM PANEL AGAP 12.7 meq/L 10.0 - 20.0 09/19/2016 [facility] CHEM PANEL A/G Ratio 0.8 0.7 - 1.6 09/19/2016 [facility] CHEM PANEL Globulin 3.7 g/dL 2.7 - 4.2 09/19/2016 [facility] CHEM PANEL Sodium Lvl 136 meq/L 135 - 145 09/19/2016 [facility] CHEM PANEL Creatinine Lvl 0.63 mg/dL 0.50 - 1.40 09/19/2016 [facility] CHEM PANEL BUN 8 mg/dL 7 - 22 09/19/2016 [facility] CHEM PANEL Glucose Lvl 106 mg/dL 70 - 99 09/19/2016 [facility] CHEM PANEL Chloride Lvl 101 meq/L 95 - 109 09/19/2016 [facility] CHEM PANEL CO2 26 meq/L 24 - 32 09/19/2016 [facility] CHEM PANEL Potassium Lvl 3.7 meq/L 3.5 - 5.1 09/19/2016 [facility] CHEM PANEL Alk Phos 57 unit/L 39 - 136 09/19/2016 [facility] CHEM PANEL AST 13 unit/L 0 - 37 09/19/2016 [facility] CHEM PANEL ALT 10 unit/L 0 - 65 09/19/2016 [facility] CHEM PANEL Albumin Lvl 3.1 g/dL 3.5 - 5.0 09/19/2016 [facility] CHEM PANEL Total Protein 6.8 g/dL 6.4 - 8.4 09/19/2016 [facility] CHEM PANEL Calcium Lvl 8.5 mg/dL 8.5 - 10.5 09/19/2016 [facility] CHEM PANEL Bili Total 0.4 mg/dL 0.2 - 1.3 09/19/2016 [facility] CHEM PANEL eGFR 83 mL/min/1.73m2 09/19/2016 Result Comment: The eGFR is calculated using the CKD-EPI formula. In most young, healthy individuals the eGFR will be >90 mL/min/1.73m2. The eGFR declines with age. An eGFR of 60-89 may be normal in some populations, particularly the elderly, for whom the CKD-EPI formula has not been extensively validated. Use of the eGFR is not recommended in the following populations: Individuals with unstable creatinine concentrations, including patients and those with serious co-morbid conditions. Patients with extremes in muscle mass or diet. The data above are obtained from the National Kidney Disease Education Program (NKDEP) which additionally recommends that when the eGFR is used in patients with extremes of body mass index for purposes of drug dosing, the eGFR should be multiplied by the estimated BMI. [facility] CHEM PANEL Magnesium Lvl 1.9 mg/dL 1.8 - 2.4 09/19/2016 [facility] HEMATOLOGY Eosinophils # 0.3 K/CMM 0.0 - 0.5 09/19/2016 [facility] HEMATOLOGY Monocytes # 0.7 K/CMM 0.0 - 0.8 09/19/2016 [facility] HEMATOLOGY Lymphocytes # 1.3 K/CMM 1.0 - 5.5 09/19/2016 [facility] HEMATOLOGY Segs-Bands # 3.8 K/CMM 1.5 - 8.1 09/19/2016 [facility] Eosinophils 4.3 % 0.0 - 4.0 09/19/2016 [facility] Lymphocytes 21.8 % 20.0 - 40.0 09/19/2016 [facility] HEMATOLOGY Segs 62.4 % 45.0 - 75.0 09/19/2016 [facility] Monocytes 11.1 % 2.0 - 12.0 09/19/2016 [facility] Basophils 0.4 % 0.0 - 1.0 09/19/2016 [facility] HEMATOLOGY INR 1.18 0.85 - 1.17 09/19/2016 [facility] PT 15.3 s 12.0 - 14.7 09/19/2016 [facility] PTT 34.3 s 22.9 - 35.8 09/19/2016 [facility] WBC 6.1 K/CMM 3.7 - 10.4 09/19/2016 [facility] MPV 7.3 fL 7.4 - 10.4 09/19/2016 [facility] Platelet 199 K/CMM 133 - 450 09/19/2016 [facility] RDW 15.1 % 11.5 - 14.5 09/19/2016 [facility] MCH 27.3 pg 27.0 - 31.0 09/19/2016 [facility] MCHC 33.5 g/dL 32.0 - 36.0 09/19/2016 [facility] RBC 3.89 M/CMM 4.20 - 5.40 09/19/2016 [facility] HEMATOLOGY Hgb 10.6 g/dL 12.0 - 16.0 09/19/2016 [facility] HEMATOLOGY MCV 81.4 fL 80.0 - 98.0 09/19/2016 [facility] HEMATOLOGY Hct 31.7 % 36.0 - 48.0 09/19/2016 [facility] URINE AND STOOL UA Bili Negative *NA* (09/19/16 2:30 AM) Negative 09/19/2016 [facility] URINE AND STOOL UA Blood Negative (09/19/16 2:30 AM) Negative 09/19/2016 [facility] URINE AND STOOL UA Protein Negative mg/dL Negative mg/dL 09/19/2016 [facility] URINE AND STOOL UA Ketones 20 mg/dL Negative mg/dL 09/19/2016 [facility] URINE AND STOOL UA pH 7.0 5.0 - 8.0 09/19/2016 [facility] URINE AND STOOL UA Glucose Negative mg/dL Negative mg/dL 09/19/2016 [facility] URINE AND STOOL UA Spec Grav 1.005 <=1.030 09/19/2016 [facility] URINE AND STOOL UA Urobilinogen <=1.0 mg/dL 0.1 - 1.0 09/19/2016 [facility] URINE AND STOOL UA Sq Epi None Seen 09/19/2016 [facility] URINE AND STOOL UA Color Ltyellow 09/19/2016 [facility] URINE AND STOOL UA RBC 1 /HPF 0 - 2 09/19/2016 [facility] URINE AND STOOL UA Nitrite Negative (09/19/16 2:30 AM) Negative 09/19/2016 [facility] URINE AND STOOL UA Leuk Est Negative (09/19/16 2:30 AM) Negative 09/19/2016 [facility] URINE AND STOOL UA WBC 3 /HPF 0 - 5 09/19/2016 [facility] URINE AND STOOL UA Turbidity Clear (09/19/16 2:30 AM) Clear 09/19/2016 [facility] CARDIAC ENZYMES Troponin-I 0.07 ng/mL 0.00 - 0.40 09/19/2016 [facility] URINE AND STOOL UA RBC 3 /HPF 0 - 2 09/18/2016 [facility] URINE AND STOOL UA WBC 3 /HPF 0 - 5 09/18/2016 [facility] URINE AND STOOL UA Leuk Est Negative (09/18/16 5:00 PM) Negative 09/18/2016 [facility] URINE AND STOOL UA Sq Epi None Seen 09/18/2016 [facility] URINE AND STOOL UA Color Ltyellow 09/18/2016 [facility] URINE AND STOOL UA Urobilinogen <=1.0 mg/dL 0.1 - 1.0 09/18/2016 [facility] URINE AND STOOL UA Ketones Trace mg/dL Negative mg/dL 09/18/2016 [facility] URINE AND STOOL UA Blood Negative (09/18/16 5:00 PM) Negative 09/18/2016 [facility] URINE AND STOOL UA Nitrite Negative (09/18/16 5:00 PM) Negative 09/18/2016 [facility] URINE AND STOOL UA Spec Grav 1.009 <=1.030 09/18/2016 [facility] URINE AND STOOL UA pH 7.0 5.0 - 8.0 09/18/2016 [facility] URINE AND STOOL UA Turbidity Clear (09/18/16 5:00 PM) Clear 09/18/2016 [facility] URINE AND STOOL UA Protein Negative mg/dL Negative mg/dL 09/18/2016 [facility] URINE AND STOOL UA Bili Negative *NA* (09/18/16 5:00 PM) Negative 09/18/2016 [facility] URINE AND STOOL UA Glucose Negative mg/dL Negative mg/dL 09/18/2016 [facility] Brain wo contrast CT Brain wo contrast CT CT BRAIN WITHOUT CONTRAST INDICATION: Headache with dizziness and generalized weakness, Headache with Dizziness and Giddiness, weakness, dizziness x 1-2 weeks, also c/o abd pain bleed - ct dlp 981.84 , ct exam delay due to batch ordering, lr COMPARISON: None DISCUSSION: There are generalized involutional changes of the brain. There is no evidence of acute vascular insults, space occupying lesions, hemorrhage, hydrocephalus, midline shift, or extra-axial fluid collections. The calvarium is intact. IMPRESSION: Chronic age-related changes of the brain. No acute intracranial abnormalities are visualized. SL:16 09/18/2016 - - Read by: Leon Randle MD Dictated Date/time: 09/18/16 21:34 Electronically Signed by: Leon Randle MD 09/18/16 21:37 FINAL REPORT [facility] Chest wo contrast CT Chest wo contrast CT CT CHEST WITH CONTRAST INDICATION: Evaluate for lung mass or pneumonia, ro mass vs pna, weakness, dizziness x 1-2 weeks, also c/o abd pain - ct dlp 274.09 lr COMPARISON: Chest radiograph 09/18/2016, CT chest 04/14/2013 DISCUSSION: Lungs are hyperexpanded. There is extensive nodularity of both lungs, right more than left. There is associated septal thickening. Larger nodules or areas of focal consolidation are seen at the right lung base. There was a similar appearance in the chest CT from 2012, involving the right upper lobe. There is significant interval progression of disease. There is no pleural effusion or pneumothorax. Bronchiectasis and atelectasis are noted at the right middle lobe and lingula. The trachea and major bronchi are clear. Grossly, no suspicious lymphadenopathy is seen. The heart size is normal. Coronary artery calcifications are noted. There is a right sided aortic arch. Atherosclerotic aortic calcification is noted. The aorta is otherwise grossly unremarkable. Limited evaluation of the upper abdominal structures is grossly unremarkable. BONES: No acute bony abnormalities are seen. IMPRESSION: 1. Extensive pulmonary nodularity, progressed since 2012. Bronchiectasis is seen at the right middle lobe and lingula. 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 Differential considerations include fungal infection, sarcoidosis, and lymphangitic carcinomatosis. 2. Right-sided aortic arch. SL:16 09/18/2016 - - Read by: Leon Randle MD Dictated Date/time: 09/18/16 21:37 Electronically Signed by: Leon Randle MD 09/18/16 21:49 FINAL REPORT [facility] CARDIAC ENZYMES CK MB Index 3.1 0.0 - 2.5 09/18/2016 [facility] CARDIAC ENZYMES BNP 102 pg/mL <=100 pg/mL 09/18/2016 [facility] CARDIAC ENZYMES CK MB 1.6 ng/mL 0.5 - 3.6 09/18/2016 [facility] CARDIAC ENZYMES Troponin-I 0.09 ng/mL 0.00 - 0.40 09/18/2016 [facility] CARDIAC ENZYMES Total CK 52 unit/L 12 - 191 09/18/2016 [facility] CHEM PANEL eGFR 72 mL/min/1.73m2 09/18/2016 Result Comment: The eGFR is calculated using the CKD-EPI formula. In most young, healthy individuals the eGFR will be >90 mL/min/1.73m2. The eGFR declines with age. An eGFR of 60-89 may be normal in some populations, particularly the elderly, for whom the CKD-EPI formula has not been extensively validated. Use of the eGFR is not recommended in the following populations: Individuals with unstable creatinine concentrations, including patients and those with serious co-morbid conditions. Patients with extremes in muscle mass or diet. The data above are obtained from the National Kidney Disease Education Program (NKDEP) which additionally recommends that when the eGFR is used in patients with extremes of body mass index for purposes of drug dosing, the eGFR should be multiplied by the estimated BMI. [facility] CHEM PANEL Globulin 4.2 g/dL 2.7 - 4.2 09/18/2016 [facility] CHEM PANEL A/G Ratio 0.9 0.7 - 1.6 09/18/2016 [facility] CHEM PANEL B/C Ratio 12 6 - 25 09/18/2016 [facility] CHEM PANEL AGAP 13.5 meq/L 10.0 - 20.0 09/18/2016 [facility] CHEM PANEL Bili Total 0.5 mg/dL 0.2 - 1.3 09/18/2016 [facility] CHEM PANEL Alk Phos 68 unit/L 39 - 136 09/18/2016 [facility] CHEM PANEL AST 22 unit/L 0 - 37 09/18/2016 [facility] CHEM PANEL Albumin Lvl 3.7 g/dL 3.5 - 5.0 09/18/2016 [facility] CHEM PANEL ALT 10 unit/L 0 - 65 09/18/2016 [facility] CHEM PANEL Total Protein 7.9 g/dL 6.4 - 8.4 09/18/2016 [facility] CHEM PANEL Calcium Lvl 9.0 mg/dL 8.5 - 10.5 09/18/2016 [facility] CHEM PANEL CO2 26 meq/L 24 - 32 09/18/2016 [facility] CHEM PANEL Creatinine Lvl 0.77 mg/dL 0.50 - 1.40 09/18/2016 [facility] CHEM PANEL BUN 9 mg/dL 7 - 22 09/18/2016 [facility] CHEM PANEL Potassium Lvl 4.5 meq/L 3.5 - 5.1 09/18/2016 [facility] CHEM PANEL Sodium Lvl 131 meq/L 135 - 145 09/18/2016 [facility] CHEM PANEL Chloride Lvl 96 meq/L 95 - 109 09/18/2016 [facility] CHEM PANEL Glucose Lvl 107 mg/dL 70 - 99 09/18/2016 [facility] HEMATOLOGY Segs-Bands # 6.8 K/CMM 1.5 - 8.1 09/18/2016 [facility] HEMATOLOGY Basophils 0.8 % 0.0 - 1.0 09/18/2016 [facility] HEMATOLOGY Lymphocytes # 2.0 K/CMM 1.0 - 5.5 09/18/2016 [facility] HEMATOLOGY Monocytes 8.5 % 2.0 - 12.0 09/18/2016 [facility] HEMATOLOGY Eosinophils 2.3 % 0.0 - 4.0 09/18/2016 [facility] HEMATOLOGY Basophils # 0.1 K/CMM 0.0 - 0.2 09/18/2016 [facility] HEMATOLOGY Eosinophils # 0.2 K/CMM 0.0 - 0.5 09/18/2016 [facility] HEMATOLOGY Monocytes # 0.8 K/CMM 0.0 - 0.8 09/18/2016 [facility] Lymphocytes 20.4 % 20.0 - 40.0 09/18/2016 [facility] HEMATOLOGY Segs 68.0 % 45.0 - 75.0 09/18/2016 [facility] WBC 9.9 K/CMM 3.7 - 10.4 09/18/2016 [facility] Hgb 11.8 g/dL 12.0 - 16.0 09/18/2016 [facility] Hct 35.4 % 36.0 - 48.0 09/18/2016 [facility] RBC 4.37 M/CMM 4.20 - 5.40 09/18/2016 [facility] MCV 81.0 fL 80.0 - 98.0 09/18/2016 [facility] MCHC 33.5 g/dL 32.0 - 36.0 09/18/2016 [facility] MCH 27.1 pg 27.0 - 31.0 09/18/2016 [facility] MPV 7.5 fL 7.4 - 10.4 09/18/2016 [facility] RDW 15.5 % 11.5 - 14.5 09/18/2016 [facility] Platelet 260 K/CMM 133 - 450 09/18/2016 [facility] PT 14.3 s 12.0 - 14.7 09/18/2016 [facility] HEMATOLOGY INR 1.09 0.85 - 1.17 09/18/2016 [facility] PTT 34.3 s 22.9 - 35.8 09/18/2016 [facility] Chest 1view DX Chest 1view DX Patient Name: BRE PINA : 1930; Age: 85 years y/o Female MR: [id number] Study: Chest 1view DX 09/18/2016 2:47 PM CDT Ordering Physician: Clinical Indication: Dizziness - weakness; Comparison: 07/12/2014 Chest one view FINDINGS: Hyperinflated lungs with coarse interstitial opacities suggesting chronic obstructive pulmonary disease, mick ectasis interstitial fibrotic changes. There is a new 2 x 3 cm masslike opacity overlying left lower lobe. This could represent pulmonary mass, pleural thickening, or focal infiltrate. Consider CT for further evaluation. There is no pleural effusion or pneumothorax. Heart size normal. No evidence for congestive heart failure or pulmonary edema. There appear are questionable erosive changes in the posterior left 7th rib. IMPRESSION: Chronic obstructive pulmonary disease, with bronchiectasis and interstitial fibrosis. 2 x 3 cm density overlying the left lower lobe could represent pulmonary mass, focal infiltrate, or pleural thickening. Chest CT could be more specific in follow-up. Possible erosive or destructive changes within left posterior 7th rib. This could also be better evaluated on CT. SL: [id number] 09/18/2016 - - Read by: Rony Ring MD Dictated Date/time: 09/18/16 15:05 Electronically Signed by: Rony Ring MD 09/18/16 15:09 FINAL REPORT [facility] Spine thoracic 3 views DX Spine thoracic 3 views DX Spine thoracic 3 views DX COMPARISON: None CLINICAL HISTORY: back pain; FINDINGS: There is no evidence for fracture or subluxation. The visualized bones demonstrate normal radiodensity. Mild kyphotic deformity of the dorsal spine without fracture subluxation or focal lesion. Disc space narrowing and mild endplate degenerative changes throughout much of the upper and mid dorsal spine. IMPRESSION: No acute finding. Multilevel disc space narrowing, endplate degenerative changes and resultant dorsal kyphosis. : [id number] 07/31/2015 - - Read by: Rnoy Ring MD Dictated Date/time: 07/31/15 17:40 Electronically Signed by: Rony Ring MD 07/31/15 17:42 FINAL REPORT [facility] Spine cervical series DX Spine cervical series DX Spine cervical series DX COMPARISON: None CLINICAL HISTORY: pain in neck, left shoulder pain, back pain FINDINGS: There is no evidence for fracture or subluxation. The prevertebral soft tissues are within normal limits. Disc spaces maintained. Facet degenerative changes are however noted bilaterally from C4 through C7. Oblique views demonstrate patent neural exit foramina however. IMPRESSION: No acute findings. Chronic facet arthropathy. SL: [id number] 07/31/2015 - - Read by: Rony Ring MD Dictated Date/time: 07/31/15 17:35 Electronically Signed by: Rony Ring MD 07/31/15 17:36 FINAL REPORT [facility] Shoulder 1 view DX Shoulder 1 view DX Patient Name: BRE PINA : 1930; Age: 84 years y/o Female MR: [id number] * LEFT SHOULDER, 2 views History: Left shoulder pain. A prior study of 07/30/2010 was reviewed. Technique: The left shoulder was evaluated in frontal projection in internal and external rotation. FINDINGS: There is no evidence of fracture, dislocation, or acute change. There are no degenerative changes or other significant osseous abnormalities. IMPRESSION: 1. Negative left shoulder. SL: [id number] 07/31/2015 - - Read by: Clarence Murrell MD Dictated Date/time: 07/31/15 16:01 Electronically Signed by: Clarence Murrell MD 07/31/15 16:02 FINAL REPORT [facility] Hip 2 views DX Hip 2 views DX RIGHT HIP (2 Views) HISTORY: Trauma, injury to right hip, status post fall. Right hip pain. TECHNIQUE: The right hip was evaluated in neutral and external rotation. FINDINGS:The joint spaces are well maintained. There is no evidence of fracture, degenerative change, or other osteoarticular abnormality. Mild atherosclerotic calcifications are noted involving the right femoral artery. CONCLUSION: 1. Negative right hip. Coding: Hip min 2 views CPT code: 65241 SL: 13 Clarence Murrell M.D. 07/12/2014 - - Read by: Clarence Murrell MD Dictated Date/time: 07/12/14 11:16 Electronically Signed by: Clarence Murrell MD 07/12/14 11:17 FINAL REPORT [facility] Ribs unilateral 3 views w PA chest DX Ribs unilateral 3 views w PA chest DX LEFT RIB SERIES WITH PA CHEST 5 VIEWS INDICATION: Left rib pain COMPARISON: Chest radiograph 01/18/2014 IMPRESSION: 1. No fractures or osteolytic or sclerotic lesions are visualized. 2. There is nonspecific hyperexpansion of the lungs. Otherwise, no acute intrathoracic abnormalities are visualized. SL: 16 07/12/2014 - - Read by: Leon Randle MD Dictated Date/time: 07/12/14 11:30 Electronically Signed by: Leon Randle MD 07/12/14 11:32 FINAL REPORT [facility] Chest 2 views Chest 2 views Examination: Chest x-ray, 2 views History: dyspnea and respiratory abnormality Comparison: 04/13/2013 Findings: Cardiac silhouette is normal in size. Nodular lingular opacity is noted. No pleural effusion or pneumothorax is seen. Osseous structures are stable. IMPRESSION: Nodular lingular opacity which may represent area of mild atelectasis. SL: 12 01/18/2014 - - Read by: Tommy Victoria MD Dictated Date/time: 01/19/14 07:09 Electronically Signed by: Tommy Victoria MD 01/19/14 07:10 FINAL REPORT [facility] Spine cervical 2 or 3 views Spine cervical 2 or 3 views Examination: Cervical spine, 4 views History: neck pain ( icd 723.1) Comparison: 07/30/2010 Findings: Multiple views of the cervical spine show visualization through the C7 vertebral body on the lateral view. No acute vertebral body height loss or subluxation is seen. Mild degenerative disease of the cervical spine at C3-C4 is seen with disc height loss and marginal osteophyte formation. Moderate to severe facet arthrosis throughout the remaining cervical spine is seen. The odontoid process is intact. The prevertebral soft tissues are unremarkable. There is mild exaggeration of cervical lordosis. 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 SL: 12 01/18/2014 - - Read by: Tommy Victoria MD Dictated Date/time: 01/19/14 07:07 Electronically Signed by: Tommy Victoria MD 01/19/14 07:09 FINAL REPORT [facility] Sinus paranasal series Sinus paranasal series Examination: Sinus series, 5 views History: acute sinusitis Comparison: None. Findings: Multiple views of the sinuses show well developed and well aerated frontal, maxillary, ethmoid, and sphenoid sinuses without air-fluid level. No significant mucoperiosteal thickening is seen. No osseous erosion is noted. IMPRESSION: Unremarkable sinus series. SL: 01/18/2014 - - Read by: Tommy Victoria MD Dictated Date/time: 01/19/14 07:10 Electronically Signed by: Tommy Victoria MD 01/19/14 07:11 FINAL REPORT [facility] CHEMISTRY AGAP 10.6 meq/L 10.0 - 20.0 04/15/2013 Normal [facility] CHEMISTRY eGFR 82 mL/min/1.73m2 04/15/2013 1Result Comment: The eGFR is calculated using the CKD-EPI formula. In most young, healthy individuals the eGFR will be >90 mL/min/1.73m2. The eGFR declines with age. An eGFR of 60-89 may be normal in some populations, particularly the elderly, for whom the CKD-EPI formula has not been extensively validated. Use of the eGFR is not recommended in the following populations: Individuals with unstable creatinine concentrations, including patients and those with serious co-morbid conditions. Patients with extremes in muscle mass or diet. The data above are obtained from the National Kidney Disease Education Program (NKDEP) which additionally recommends that when the eGFR is used in patients with extremes of body mass index for purposes of drug dosing, the eGFR should be multiplied by the estimated BMI. [facility] CHEMISTRY Calcium Lvl 8.9 mg/dL 8.5 - 10.5 04/15/2013 Normal [facility] CHEMISTRY CO2 28 meq/L 24 - 32 04/15/2013 Normal [facility] CHEMISTRY Glucose Lvl 106 mg/dL 70 - 99 04/15/2013 HI 4Interpretive Data: Adult reference range values reflect the clinical guidelines of the [place] [employer]. [facility] CHEMISTRY BUN 7 mg/dL 7 - 22 04/15/2013 Normal [facility] CHEMISTRY Creatinine Lvl 0.7 mg/dL 0.5 - 1.4 04/15/2013 Normal [facility] CHEMISTRY Chloride Lvl 109 meq/L 95 - 109 04/15/2013 Normal [facility] CHEMISTRY Potassium Lvl 3.6 meq/L 3.5 - 5.1 04/15/2013 Normal [facility] CHEMISTRY Sodium Lvl 144 meq/L 135 - 145 04/15/2013 Normal [facility] HEMATOLOGY Platelet 163 K/CMM 133 - 450 04/15/2013 Normal [facility] HEMATOLOGY MCHC 32.8 g/dL 32.0 - 36.0 04/15/2013 Normal [facility] HEMATOLOGY RDW 13.9 % 11.5 - 14.5 04/15/2013 Normal [facility] HEMATOLOGY MPV 7.7 fL 7.4 - 10.4 04/15/2013 Normal [facility] HEMATOLOGY WBC X 10x3 6.0 K/CMM 3.7 - 10.4 04/15/2013 Normal [facility] HEMATOLOGY Hct 33.4 % 36.0 - 48.0 04/15/2013 [facility] MCV 85.9 fL 81.0 - 99.0 04/15/2013 Normal [facility] HEMATOLOGY Hgb 11.0 g/dL 12.0 - 16.0 04/15/2013 [facility] HEMATOLOGY MCH 28.2 pg 27.0 - 31.0 04/15/2013 Normal [facility] HEMATOLOGY RBC X 10x6 3.88 M/CMM 4.20 - 5.40 04/15/2013 [facility] HEMATOLOGY Basophils # 0.0 K/CMM 0.0 - 0.2 04/15/2013 [facility] HEMATOLOGY Eosinophils # 0.6 K/CMM 0.0 - 0.5 04/15/2013 [facility] HEMATOLOGY Segs-Bands # 3.2 K/CMM 1.5 - 8.1 04/15/2013 Normal [facility] HEMATOLOGY Lymphocytes # 1.5 K/CMM 1.0 - 5.5 04/15/2013 [facility] HEMATOLOGY Monocytes # 0.6 K/CMM 0.0 - 0.8 04/15/2013 [facility] HEMATOLOGY Basophils 0.5 % 0.0 - 1.0 04/15/2013 [facility] HEMATOLOGY Lymphocytes 25.8 % 20.0 - 40.0 04/15/2013 [facility] HEMATOLOGY Eosinophils 9.4 % 0.0 - 4.0 04/15/2013 [facility] HEMATOLOGY Monocytes 10.3 % 2.0 - 12.0 04/15/2013 [facility] HEMATOLOGY Segs 54.0 % 45.0 - 75.0 04/15/2013 [facility] IMMUNOLOGY TB - NIL null 04/14/2013 10Result Comment: The Nil tube value is used to determine if the patient has a preexisting immune response which could cause a false-positive reading on the test. In order for a test to be valid, the Nil tube must have a value of less than or equal to 8.0 IU/mL. The mitogen control tube is used to assure the patient has a healthy immune status and also serves as a control for correct blood handling and incubation. It is used to detect false-negative readings. The mitogen tube must have a gamma interferon value of greater than or equal to 0.5 IU/mL higher than the value of the Nil tube. The TB antigen tube is coated with the M. tuberculosis specific antigens. For a test to be considered positive, the TB antigen tube value minus the Nil tube value must be greater than or equal to 0.35 IU/mL. For additional information, please refer to http://education.[employer]/faq/QFT (This link is being provided for informational/ educational purposes only.) Test Performed at: [facility] [address] [id number] SHEA YE M.D. [facility] IMMUNOLOGY Mitogen - NIL null 04/14/2013 [facility] IMMUNOLOGY NIL 0.21 [iU]/mL 04/14/2013 [facility] IMMUNOLOGY Quantiferon - TB Gold POSITIVE NEGATIVE 04/14/2013 ABN 9Result Comment: In healthy persons who have a low likelihood both of M. tuberculosis infection and of progression to active tuberculosis if infected, a single positive QFT result should not be taken as reliable evidence of M. tuberculosis infection. Repeat testing, with either the initial test or a different test, may be considered on a esyc-sl-hafn basis. [facility] CHEMISTRY Troponin-I 0.05 ng/mL 0.00 - 0.40 04/14/2013 Normal [facility] CHEMISTRY CK MB 1.8 ng/mL 0.5 - 3.6 04/14/2013 Normal [facility] Chest wo contrast CT Chest wo contrast CT CT chest without contrast. COMPARISON: 04/13/2013, 11/14/[address] chest 12/17/2007. TECHNIQUE: Contiguous transaxial images of the chest were performed without IV contrast from the lung apices to the diaphragms. FINDINGS: Mild reticulonodular infiltrate is present in the right upper lobe abutting the fissure. There is mild bronchiectasis visualized in the right upper lobe. There is volume loss, parenchymal scarring and bronchiectasis visualized in the lingula anteriorly. The trachea and the proximal bronchi are patent. The cardiac size is normal. Mild atherosclerotic disease is present in the aorta. The evaluation of the mediastinum and hilar regions is curtailed due to lack of IV contrast but no gross mass or lymphadenopathy is evident. The esophagus demonstrates normal morphology. Visualized portion of the upper abdomen is grossly unremarkable. IMPRESSION: Mild reticulonodular infiltrate is visualized in the right upper lobe. Differential considerations include pneumonia, as well as atypical TB and fungal type infections. Volume loss, scarring and bronchiectasis is visualized in the lingula anteriorly, likely reflecting sequela of previous infection/inflammation. NOTE: The above findings were telephoned to the unit nurse, Audelia, on 04/14/2013, 1155 hours. SL:13 04/14/2013 - - Read by: Fidel Asher Dictated Date/time: 04/14/13 11:38 Electronically Signed by: Fidel Asher MD 04/14/13 12:00 FINAL REPORT [facility] CHEMISTRY CK MB 1.9 ng/mL 0.5 - 3.6 04/14/2013 Normal [facility] CHEMISTRY Troponin-I 0.05 ng/mL 0.00 - 0.40 04/14/2013 Normal [facility] CHEMISTRY CK MB 1.8 ng/mL 0.5 - 3.6 04/14/2013 Normal [facility] CHEMISTRY Troponin-I 0.04 ng/mL 0.00 - 0.40 04/14/2013 Normal [facility] CHEMISTRY Lactic Acid Lvl 1.3 mMol/L 0.5 - 2.2 04/14/2013 Normal [facility] CHEMISTRY eGFR 82 mL/min/1.73m2 04/14/2013 2Result Comment: The eGFR is calculated using the CKD-EPI formula. In most young, healthy individuals the eGFR will be >90 mL/min/1.73m2. The eGFR declines with age. An eGFR of 60-89 may be normal in some populations, particularly the elderly, for whom the CKD-EPI formula has not been extensively validated. Use of the eGFR is not recommended in the following populations: Individuals with unstable creatinine concentrations, including patients and those with serious co-morbid conditions. Patients with extremes in muscle mass or diet. The data above are obtained from the National Kidney Disease Education Program (NKDEP) which additionally recommends that when the eGFR is used in patients with extremes of body mass index for purposes of drug dosing, the eGFR should be multiplied by the estimated BMI. [facility] CHEMISTRY Calcium Lvl 10.1 mg/dL 8.5 - 10.5 04/14/2013 Normal [facility] CHEMISTRY CO2 25 meq/L 24 - 32 04/14/2013 Normal [facility] CHEMISTRY Total Protein 7.9 g/dL 6.4 - 8.4 04/14/2013 Normal [facility] CHEMISTRY Potassium Lvl 3.8 meq/L 3.5 - 5.1 04/14/2013 Normal [facility] CHEMISTRY Chloride Lvl 104 meq/L 95 - 109 04/14/2013 Normal [facility] CHEMISTRY ALANINE AMINOTRANSFERASE 19 unit/L 0 - 65 04/14/2013 Normal [facility] CHEMISTRY Alk Phos 86 unit/L 39 - 136 04/14/2013 Normal [facility] CHEMISTRY Albumin Lvl 4.3 g/dL 3.5 - 5.0 04/14/2013 Normal [facility] CHEMISTRY Bili Total 0.4 mg/dL 0.2 - 1.3 04/14/2013 Normal [facility] CHEMISTRY ASPARTATE TRANSAMINASE 28 unit/L 0 - 37 04/14/2013 Normal [facility] CHEMISTRY Creatinine Lvl 0.7 mg/dL 0.5 - 1.4 04/14/2013 Normal [facility] CHEMISTRY BUN 11 mg/dL 7 - 22 04/14/2013 Normal [facility] CHEMISTRY Sodium Lvl 139 meq/L 135 - 145 04/14/2013 Normal [facility] CHEMISTRY Glucose Lvl 87 mg/dL 70 - 99 04/14/2013 Normal 5Interpretive Data: Adult reference range values reflect the clinical guidelines of the [place] [employer]. [facility] CHEMISTRY AGAP 13.8 meq/L 10.0 - 20.0 04/14/2013 Normal [facility] CHEMISTRY B/C Ratio 16 6 - 25 04/14/2013 Normal [facility] CHEMISTRY Globulin 3.6 g/dL 2.0 - 4.0 04/14/2013 Normal [facility] CHEMISTRY A/G Ratio 1.2 0.7 - 1.6 04/14/2013 Normal [facility] HEMATOLOGY RDW 14.2 % 11.5 - 14.5 04/14/2013 Normal [facility] HEMATOLOGY Hct 32.7 % 36.0 - 48.0 04/14/2013 LOW [facility] HEMATOLOGY Hgb 10.9 g/dL 12.0 - 16.0 04/14/2013 LOW [facility] HEMATOLOGY MCV 85.2 fL 81.0 - 99.0 04/14/2013 Normal [facility] HEMATOLOGY Platelet 188 K/CMM 133 - 450 04/14/2013 Normal [facility] HEMATOLOGY MCHC 33.5 g/dL 32.0 - 36.0 04/14/2013 Normal [facility] HEMATOLOGY MCH 28.6 pg 27.0 - 31.0 04/14/2013 Normal [facility] HEMATOLOGY MPV 7.2 fL 7.4 - 10.4 04/14/2013 LOW [facility] HEMATOLOGY WBC X 10x3 8.6 K/CMM 3.7 - 10.4 04/14/2013 Normal [facility] HEMATOLOGY RBC X 10x6 3.84 M/CMM 4.20 - 5.40 04/14/2013 LOW [facility] HEMATOLOGY Basophils # 0.0 K/CMM 0.0 - 0.2 04/14/2013 Normal [facility] HEMATOLOGY Lymphocytes # 2.2 K/CMM 1.0 - 5.5 04/14/2013 Normal [facility] HEMATOLOGY Monocytes # 0.7 K/CMM 0.0 - 0.8 04/14/2013 Normal [facility] HEMATOLOGY Eosinophils # 0.7 K/CMM 0.0 - 0.5 04/14/2013 [facility] HEMATOLOGY Basophils 0.2 % 0.0 - 1.0 04/14/2013 Normal [facility] HEMATOLOGY Segs-Bands # 5.0 K/CMM 1.5 - 8.1 04/14/2013 Normal [facility] HEMATOLOGY Segs 57.9 % 45.0 - 75.0 04/14/2013 Normal [facility] HEMATOLOGY Eosinophils 8.2 % 0.0 - 4.0 04/14/2013 [facility] HEMATOLOGY Lymphocytes 25.4 % 20.0 - 40.0 04/14/2013 Normal [facility] HEMATOLOGY Monocytes 8.3 % 2.0 - 12.0 04/14/2013 Normal [facility] CHEMISTRY Lactic Acid Lvl 1.0 mMol/L 0.5 - 2.2 04/13/2013 Normal [facility] URINALYSIS UA Urobilinogen <=1.0 mg/dL 0.1 - 1.0 04/13/2013 [facility] URINALYSIS UA Sq Epi None Seen 04/13/2013 [facility] URINALYSIS UA Color Ltyellow 04/13/2013 [facility] URINALYSIS UA Leuk Est Small *ABN* (04/13/2013 16:31:00) Negative 04/13/2013 ABN [facility] URINALYSIS UA Nitrite Negative (04/13/2013 16:31:00) Negative 04/13/2013 Normal [facility] URINALYSIS UA Protein Negative mg/dL Negative 04/13/2013 Normal [facility] URINALYSIS UA pH 6.0 5.0 - 8.0 04/13/2013 Normal [facility] URINALYSIS UA Glucose Negative mg/dL Negative 04/13/2013 [facility] URINALYSIS UA Blood Small *ABN* (04/13/2013 16:31:00) Negative 04/13/2013 ABN [facility] URINALYSIS UA Ketones Trace mg/dL Negative 04/13/2013 ABN [facility] URINALYSIS UA Bili Negative *NA* (04/13/2013 16:31:00) Negative 04/13/2013 [facility] URINALYSIS UA Spec Grav 1.005 <=1.030 04/13/2013 Normal [facility] URINALYSIS UA Turbidity Clear (04/13/2013 16:31:00) Clear 04/13/2013 Normal [facility] URINALYSIS UA WBC 4 /HPF 0 - 5 04/13/2013 Normal [facility] URINALYSIS UA RBC 1 /HPF 0 - 2 04/13/2013 Normal [facility] CHEMISTRY Total CK 165 unit/L 12 - 191 04/13/2013 Normal [facility] CHEMISTRY eGFR 82 mL/min/1.73m2 04/13/2013 3Result Comment: The eGFR is calculated using the CKD-EPI formula. In most young, healthy individuals the eGFR will be >90 mL/min/1.73m2. The eGFR declines with age. An eGFR of 60-89 may be normal in some populations, particularly the elderly, for whom the CKD-EPI formula has not been extensively validated. Use of the eGFR is not recommended in the following populations: Individuals with unstable creatinine concentrations, including patients and those with serious co-morbid conditions. Patients with extremes in muscle mass or diet. The data above are obtained from the National Kidney Disease Education Program (NKDEP) which additionally recommends that when the eGFR is used in patients with extremes of body mass index for purposes of drug dosing, the eGFR should be multiplied by the estimated BMI. [facility] CHEMISTRY Sodium Lvl 137 meq/L 135 - 145 04/13/2013 Normal [facility] CHEMISTRY Creatinine Lvl 0.7 mg/dL 0.5 - 1.4 04/13/2013 Normal [facility] CHEMISTRY Potassium Lvl 4.2 meq/L 3.5 - 5.1 04/13/2013 Normal [facility] CHEMISTRY Chloride Lvl 102 meq/L 95 - 109 04/13/2013 Normal [facility] CHEMISTRY BUN 12 mg/dL 7 - 22 04/13/2013 Normal [facility] CHEMISTRY Calcium Lvl 10.1 mg/dL 8.5 - 10.5 04/13/2013 Normal [facility] CHEMISTRY Total Protein 7.5 g/dL 6.4 - 8.4 04/13/2013 Normal [facility] CHEMISTRY CO2 31 meq/L 24 - 32 04/13/2013 Normal [facility] CHEMISTRY Albumin Lvl 3.9 g/dL 3.5 - 5.0 04/13/2013 Normal [facility] CHEMISTRY A/G Ratio 1.1 0.7 - 1.6 04/13/2013 Normal [facility] CHEMISTRY B/C Ratio 17 6 - 25 04/13/2013 Normal [facility] CHEMISTRY Globulin 3.6 g/dL 2.0 - 4.0 04/13/2013 Normal [facility] CHEMISTRY Bili Total 0.4 mg/dL 0.2 - 1.3 04/13/2013 Normal [facility] CHEMISTRY Alk Phos 81 unit/L 39 - 136 04/13/2013 Normal [facility] CHEMISTRY ALANINE AMINOTRANSFERASE 17 unit/L 0 - 65 04/13/2013 Normal [facility] CHEMISTRY ASPARTATE TRANSAMINASE 18 unit/L 0 - 37 04/13/2013 Normal [facility] CHEMISTRY AGAP 8.2 meq/L 10.0 - 20.0 04/13/2013 LOW [facility] CHEMISTRY Glucose Lvl 98 mg/dL 70 - 99 04/13/2013 Normal 6Interpretive Data: Adult reference range values reflect the clinical guidelines of the [place] [employer]. [facility] CHEMISTRY CK-MB INDEX 1.3 0.0 - 2.5 04/13/2013 Normal [facility] HEMATOLOGY Eosinophils # 0.7 K/CMM 0.0 - 0.5 04/13/2013 [facility] HEMATOLOGY Basophils # 0.0 K/CMM 0.0 - 0.2 04/13/2013 Normal [facility] HEMATOLOGY Segs-Bands # 6.7 K/CMM 1.5 - 8.1 04/13/2013 Normal [facility] HEMATOLOGY Lymphocytes # 1.9 K/CMM 1.0 - 5.5 04/13/2013 Normal [facility] HEMATOLOGY Monocytes # 0.8 K/CMM 0.0 - 0.8 04/13/2013 Normal [facility] HEMATOLOGY Lymphocytes 19.0 % 20.0 - 40.0 04/13/2013 LOW [facility] HEMATOLOGY Monocytes 7.5 % 2.0 - 12.0 04/13/2013 Normal [facility] HEMATOLOGY Eosinophils 7.4 % 0.0 - 4.0 04/13/2013 [facility] HEMATOLOGY Basophils 0.4 % 0.0 - 1.0 04/13/2013 Normal [facility] HEMATOLOGY Segs 65.7 % 45.0 - 75.0 04/13/2013 Normal [facility] MPV 7.8 fL 7.4 - 10.4 04/13/2013 Normal [facility] Platelet 207 K/CMM 133 - 450 04/13/2013 Normal [facility] RDW 14.2 % 11.5 - 14.5 04/13/2013 Normal [facility] MCHC 32.6 g/dL 32.0 - 36.0 04/13/2013 Normal [facility] MCH 28.2 pg 27.0 - 31.0 04/13/2013 Normal [facility] MCV 86.5 fL 81.0 - 99.0 04/13/2013 Normal [facility] Hct 35.4 % 36.0 - 48.0 04/13/2013 LOW [facility] Hgb 11.6 g/dL 12.0 - 16.0 04/13/2013 LOW [facility] RBC X 10x6 4.09 M/CMM 4.20 - 5.40 04/13/2013 LOW [facility] WBC X 10x3 10.1 K/CMM 3.7 - 10.4 04/13/2013 Normal [facility] PROTIME 13.8 s 12.0 - 14.7 04/13/2013 Normal [facility] aPTT 32.5 s 22.9 - 35.8 04/13/2013 Normal 8Interpretive Data: Heparin Therapeutic Range: 57 - 92 Seconds [facility] INR 1.07 0.85 - 1.17 04/13/2013 Normal 7Interpretive Data: RECOMMENDED RANGES FOR PROTIME INR: 2.0-3.0 for most medical and surgical thromboembolic states. 2.5-3.5 for artificial heart valves and recurrent embolism. INR SHOULD BE USED ONLY FOR PATIENTS ON STABLE ANTICOAGULANT THERAPY. [facility] Chest 2 views Chest 2 views HISTORY: Chest pain. Chest 2 views. Comparison 11/14/2009. Lungs are hyperexpanded just to underlying obstructive lung disease. Subtle infiltrate is present in the right upper lobe. There is an ill-defined nodular density on the PA view adjacent to left heart border. This may represent lingular infiltrate, although pulmonary nodule not excluded. There is no pleural effusion or pneumothorax. No acute osseous abnormality. IMPRESSION: Right upper lobe infiltrate. Consider pneumonia. 1.5 x 2 cm ill-defined density adjacent to the left heart border may represent a lingular infiltrate or nodule. Follow-up recommended to assure resolution. SL:13 04/13/2013 - - Read by: Rony Ring Dictated Date/time: 04/13/13 14:06 Electronically Signed by: Rony Ring MD 04/13/13 14:08 FINAL REPORT [facility] Digital Mammo Screening Lukasz MA Digital Mammo Screening Lukasz MA - DIGITAL MAMMO SCREENING LUKASZ MA BILATERAL DIGITAL SCREENING MAMMOGRAM WITH CAD: 12/08/2012 CLINICAL: Routine. Current study was evaluated with a Computer Aided Detection (CAD) system. Exam is read without the benefit of comparison films. Patient states their prior mammogram was performed over 10 years ago and are no longer available. There are scattered fibroglandular elements in both breasts that could obscure a lesion on mammography. There are benign vascular calcifications in both breasts. There also are benign calcifications in the right breast. Additionally there is a benign calcification in the left breast. No significant masses, calcifications, or other findings are seen in either breast. IMPRESSION: BENIGN There is no mammographic evidence of malignancy. A screening mammogram in one year is recommended. SUMMARY: Prior mammograms would be of added benefit to document half-way stability. This aids in establishing benignity. The patient should make additional efforts to locate their prior exams. An addendum will be made if additional films are provided. SL: 13. Verónica candelariat/:12/10/2012 13:37:02 Rn Invasive: Anita Cuevas, [facility] letter sent: Normal exam Mammogram BI-RADS: 2 Benign 12/08/2012 - - Read by: Verónica Lim Dictated Date/time: 12/10/12 13:37 Electronically Signed by: Verónica Lim MD 12/10/12 13:37 FINAL REPORT [facility] Vital Signs Vital Sign Value Date Comments Source Height 149.86 cm 07/10/2017 [facility] BMI Calculated 17.87 07/10/2017 [facility] Weight 40.142 07/10/2017 [facility] Temperature Oral (F) 97.5 F 07/10/2017 [facility] Heart Rate 71 07/10/2017 [facility] Systolic (mm Hg) 148 07/10/2017 [facility] Diastolic (mm Hg) 81 07/10/2017 [facility] Systolic (mm Hg) 156 07/02/2017 [facility] Diastolic (mm Hg) 65 07/02/2017 [facility] Heart Rate 97 07/02/2017 [facility] Heart Rate 87 07/02/2017 [facility] Heart Rate 88 07/02/2017 [facility] Systolic (mm Hg) 144 07/02/2017 [facility] Diastolic (mm Hg) 67 07/02/2017 [facility] Systolic (mm Hg) 153 07/02/2017 [facility] Diastolic (mm Hg) 61 07/02/2017 [facility] Respitory Rate 18 07/02/2017 [facility] Respitory Rate 18 07/02/2017 [facility] Respitory Rate 20 07/02/2017 [facility] Height 149.86 cm 07/01/2017 [facility] Weight 40.71 07/01/2017 [facility] BMI Calculated 18.13 07/01/2017 [facility] Temperature Oral (F) 97.8 F 07/01/2017 [facility] BMI Calculated 18.09 05/30/2017 [facility] Height 149.86 cm 05/30/2017 [facility] Weight 40.625 05/30/2017 [facility] Systolic (mm Hg) 123 05/30/2017 [facility] Diastolic (mm Hg) 74 05/30/2017 [facility] Heart Rate 60 05/30/2017 [facility] Temperature Oral (F) 97.4 F 05/30/2017 [facility] Systolic (mm Hg) 147 09/22/2016 [facility] Diastolic (mm Hg) 71 09/22/2016 [facility] Respitory Rate 18 09/22/2016 [facility] Heart Rate 77 09/22/2016 [facility] Temperature Oral (F) 98.3 F 09/22/2016 [facility] Systolic (mm Hg) 152 09/22/2016 [facility] Diastolic (mm Hg) 67 09/22/2016 [facility] Heart Rate 71 09/22/2016 [facility] Temperature Oral (F) 97.9 F 09/22/2016 [facility] Respitory Rate 18 09/22/2016 [facility] Respitory Rate 18 09/22/2016 [facility] Systolic (mm Hg) 151 09/22/2016 [facility] Diastolic (mm Hg) 72 09/22/2016 [facility] Temperature Oral (F) 98.4 F 09/22/2016 [facility] Heart Rate 71 09/22/2016 [facility] Weight 42.33 09/19/2016 [facility] BMI Calculated 18.59 09/19/2016 [facility] Weight 43.182 09/19/2016 [facility] Height 152.4 cm 09/19/2016 [facility] Height 149.86 cm 09/18/2016 [facility] Weight 43.182 09/18/2016 [facility] BMI Calculated 19.23 09/18/2016 [facility] Systolic (mm Hg) 128 04/15/2013 [facility] Respitory Rate 18 04/15/2013 [facility] Diastolic (mm Hg) 66 04/15/2013 [facility] Temperature Oral (F) 97.6 F 04/15/2013 [facility] Heart Rate 67 04/15/2013 [facility] Respitory Rate 18 04/15/2013 [facility] Temperature Oral (F) 98.0 F 04/15/2013 [facility] Heart Rate 71 04/15/2013 [facility] Systolic (mm Hg) 164 04/15/2013 [facility] Diastolic (mm Hg) 70 04/15/2013 [facility] Respitory Rate 18 04/15/2013 [facility] Heart Rate 72 04/15/2013 [facility] Temperature Oral (F) 97.6 F 04/15/2013 [facility] Diastolic (mm Hg) 64 04/15/2013 [facility] Systolic (mm Hg) 116 04/15/2013 [facility] Height 152.4 cm 04/14/2013 [facility] Weight 52.273 04/14/2013 [facility] Weight 52.273 04/13/2013 [facility] Height 152.4 cm 04/13/2013 [facility] Encounters Location Location Details Encounter Type Encounter Number Reason For Visit Attending Provider ADM Date DC Date Status Source [facility] Outpatient [id number] SCREENING LEANNE CASTLE 12/08/2012 12/08/2012 Active [facility] OU [id number] RONNI SHEPARD 04/13/2013 04/15/2013 Active [facility] Outpatient [id number] Romie Martines 01/18/2014 01/19/2014 [facility] OP Recurring [id number] Alonso Duran 02/08/2014 03/10/2014 [facility] Outpatient [id number] Romie Martines 07/12/2014 07/13/2014 [facility] Outpatient [id number] ROMIE MARTINES 07/31/2015 Active [facility] Outpatient [id number] Romie Martines 07/31/2015 08/01/2015 [facility] Outpatient [id number] BINDU WILLY- RAMIREZ 06/25/[address] [facility] Outpatient [id number] BINDU WILLY- RAMIREZ 09/16/2016 Active [facility] Inpatient [id number] Sky Andre 09/18/2016 09/22/2016 [facility] Outpatient [id number] Francis Green 03/07/2017 03/08/2017 [facility] Primary [facility] Phone Message [phone] 04/25/2017 04/27/2017 [facility] Outpatient [id number] Lynettejohn Childress 05/01/2017 05/02/2017 [facility] Outpatient [id number] GONZALES LE 05/30/2017 Active [facility] General Surgery [facility] Outpatient [id number] Gonzales Le 05/30/2017 05/31/2017 [facility] Primary [facility] Outside Medical Records [id number] 06/10/2017 06/12/2017 [facility] Outpatient [id number] Gonzales Le 06/24/2017 06/25/2017 [facility] Outpatient [id number] GONZALES LE 07/02/2017 Active [facility] Day Surgery [id number] Gonzales Le 07/02/2017 07/02/2017 [facility] General Surgery [facility] Outpatient [id number] Gonzales Le 07/02/2017 07/03/2017 [facility] Outpatient [id number] GONZALES LE 07/10/2017 Active [facility] General Surgery [facility] Outpatient [id number] Gonzales Le 07/10/2017 07/11/2017 [facility] Primary Care [facility] Phone Message [id number] 08/08/2017 08/10/2017 [facility] Outpatient [id number] Francis Green 09/29/2017 09/30/2017 [facility] Phone Message [id number] 11/10/2017 11/12/2017 [facility] Primary [facility] Phone Message [id number] 11/10/2017 11/12/2017 [facility] Procedures Procedure Code Date Perfomer Comments Source Laparoscopic cholecystectomy [id number] 07/02/2017 [facility] Laparoscopic cholecystectomy [id number] 07/02/2017 [facility] Miscellaneous operations<sup>1</sup> [id number] right hand surgery [facility] Miscellaneous operations<sup>1</sup> [id number] right hand surgery [facility] Colonoscopy [id number] [facility] CTR - Carpal tunnel release [id number] [facility] Esophagogastroduodenoscopy [id number] [facility] Colonoscopy [id number] [facility] CTR - Carpal tunnel release [id number] [facility] Esophagogastroduodenoscopy [id number] [facility]
--- OUTSIDE RECORDS SUMMARY | 2018-05-02 16:33 | XMS REPORT | CCD ---
Author Author Auto Generated Organization [facility] Address Unknown Phone Unavailable Care Team Providers Care Hem Inspector Name Role Phone Jaycee Martinez RP Allergies, Adverse Reactions, Alerts Substance Reaction Status codeine Active
--- OUTSIDE RECORDS SUMMARY | 2018-05-02 16:34 | XMS REPORT | Summary of Care ---
Author Author [facility] Organization [facility] Address Unknown Phone Unavailable Encounter CRISTINA Bucio([place]) [id number] Date(s): 09/18/16 - 09/22/16 [facility] [address] [place] [address]- [phone] Discharge Disposition: Home or Self Care Attending Physician: Sky Andre MD Admitting Physician: Sky Andre MD Vital Signs 1 2 3 Most recent to oldest [Reference Range]: 152.4 cm (09/19/16 12:40 AM) 149.86 cm (09/18/16 11:49 AM) Height 98.3 DegF (09/22/16 2:55 PM) 97.9 DegF (09/22/16 11:58 AM) 98.4 DegF (09/22/16 7:44 AM) Temperature Oral [96.4-99.1 DegF] 147/71 mmHg *HI* (09/22/16 2:55 PM) 152/67 mmHg *HI* (09/22/16 11:58 AM) 151/72 mmHg *HI* (09/22/16 7:44 AM) Blood Pressure [90-140/60-90 mmHg] 18 BRMIN (09/22/16 2:55 PM) 18 BRMIN (09/22/16 11:58 AM) 18 BRMIN (09/22/16 7:44 AM) Respiratory Rate [14-20 BRMIN] 77 bpm (09/22/16 2:55 PM) 71 bpm (09/22/16 11:58 AM) 71 bpm (09/22/16 7:44 AM) Peripheral Pulse Rate [60-100 bpm] 42.33 kg (09/19/16 10:45 AM) 43.182 kg (09/19/16 12:40 AM) 43.182 kg (09/18/16 11:49 AM) Weight 18.59 m2 (09/19/16 12:40 AM) 19.23 m2 (09/18/16 11:49 AM) Body Mass Index Problem List Condition Effective Dates Status Health Status Informant Benign essential 04/19/08 Active hypertension1 Blepharitis2 01/07/13 Active Blood chemistry 05/30/10 Active abnormal3 Disorder of skin4 01/07/13 Active Dyspnea5 01/18/14 Active Epigastric pain6 12/02/11 Active Gastroesophageal 08/23/13 Active reflux disease7 High blood Resolved pressure(Confirmed) Hip pain8, 9, 10 07/11/14 Active HTN(Confirmed) Resolved HTN(Confirmed) Resolved HTN - Resolved Hypertension(Confirm ed) [id number] 02/07/14 Active Neck pain12 01/18/14 Active [id number] Active Pleuritic pain14 04/26/13 Active Rib pain15, 16, 17 07/11/14 Active Severe Active protein-calorie malnutrition(Confirm ed) 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 2Data migrated from [employer] on 10/11/14. 3Data migrated from [employer] on 10/11/14. 4Data migrated from [employer] on 10/11/14. 5Data migrated from [employer] on 10/11/14. 6Data migrated from [employer] on 10/11/14. 7Data migrated from [employer] on 10/11/14. 8Data migrated from [employer] on 11/16/14. 9Data migrated from [employer] on 11/16/14. 10Data migrated from [employer] on 10/11/14. 11Data migrated from [employer] on 10/11/14. 12Data migrated from [employer] on 10/11/14. 13Data migrated from [employer] on 10/11/14. 14Data migrated from [employer] on 10/11/14. 15Data migrated from [employer] on 11/16/14. 16Data migrated from [employer] on 11/16/14. 17Data migrated from [employer] on 10/11/14. 18Data migrated from [employer] on 10/11/14. Allergies, Adverse Reactions, Alerts Substance Reaction Severity Status codeine1 Active HYDROcodone Active 1Data migrated from [employer] on 07/12/15. Originally documented as CODEINE. Medications aspirin 81 mg tablet, enteric coated 81 mg=1 tab, PO, Daily, 0 Refill(s) Start Date: 09/21/16 Status: Suspended Aspirin Enteric Coated 81 mg, 1 tab, Route: PO, Drug form: ECTAB, Daily, Dosing Weight 43.182, kg, Star t date: 09/19/16 11:00:00 CDT, Duration: 30 day, Stop date: 10/19/16 9:00:00 CDT Notes: Do not crush or chew.(Same As: Ecotrin) Start Date: 09/19/16 Stop Date: 09/22/16 Status: Discontinued atropine 0.5 mg, 5 mL, Route: IVP, Drug form: INJ, ONCE, Dosing Weight 43.182, kg, PRN Br adycardia, Start date: 09/19/16 0:49:00 CDT Start Date: 09/19/16 Stop Date: 09/22/16 Status: Discontinued azithromycin + sodium chloride 0.9% INJ 250 mL 500 mg, Route: IVPB, ONCE, Dosing Weight 43.182, kg, Priority: STAT, Start date: 09/18/16 23:09:00 CDT, Stop date: 09/18/16 23:09:00 CDT Notes: (Same As: Zithromax IV) Start Date: 09/18/16 Stop Date: 09/19/16 Status: Completed azithromycin 500 mg oral tablet 500 mg, 2 tab, Route: PO, Drug form: TAB, Q-M-W-F, Dosing Weight 42.33, kg, Star t date: 09/23/16 9:00:00 CDT, Duration: 30 day, Stop date: 10/21/16 9:00:00 CDT Notes: Take 1 hour before or 2 hours after meals.(Same As: Zithromax) Start Date: 09/23/16 Stop Date: 09/22/16 Status: Canceled brimonidine ophthalmic 1 drp, Route: OPTH, BID, Drug form: SOLN, Start date: 09/19/16 17:00:00 CDT, Dur ation: 30 day, Stop date: 10/19/16 9:00:00 CDT Notes: (Same As: Alphagan) Start Date: 09/19/16 Stop Date: 09/22/16 Status: Discontinued calcium-vitamin D 500 mg-200 intl units oral tablet 1 tab, Route: PO, Drug Form: TAB, Dosing Weight 42.33, kg, Daily, Start date: 9:00:00 CDT, Duration: 30 day, Stop date: 10/21/16 9:00:00 CDT Notes: (Same As: Hilary-D, OsCal-D, Oyster Calcium) Start Date: 09/22/16 Stop Date: 09/22/16 Status: Discontinued Cartia XT 240 mg, 1 cap, Route: PO, Drug form: ERCAP, Daily, Dosing Weight 43.182, kg, Sta rt date: 09/19/16 11:00:00 CDT, Duration: 30 day, Stop date: 10/19/16 9:00:00 CD T Notes: (Same as: Analisazekay CD) Before meals. DO NOT CRUSH. Start Date: 09/19/16 Stop Date: 09/22/16 Status: Discontinued cefTRIAXone + sodium chloride 0.9% INJ 100 mL 1 gm, Route: IVPB, ONCE, Dosing Weight 43.182, kg, Priority: STAT, Start date: 0 09/18/16 23:09:00 CDT, Stop date: 09/18/16 23:09:00 CDT Notes: (Same As: Rocephin).Use with 100 mL NS and infuse over 30 min MEDICA TION WASTE Product Size: 1000 mgProduct Wasted: ___ mg Start Date: 09/18/16 Stop Date: 09/18/16 Status: Completed Combigan ophthalmic solution 1 drp, Route: OPTH, Q12H, Drug form: SOLN, Start date: 09/19/16 21:00:00 CDT, Du ration: 30 day, Stop date: 10/19/16 9:00:00 CDT Start Date: 09/19/16 Stop Date: 09/19/16 Status: Deleted Combigan ophthalmic solution 1 drp, Route: OPTH, Q12H, Drug form: SOLN, Start date: 09/21/16 21:00:00 CDT, Du ration: 30 day, Stop date: 10/21/16 9:00:00 CDT Start Date: 09/21/16 Stop Date: 09/21/16 Status: Deleted cycloSPORINE ophthalmic 1 drp, Route: BOTH EYES, BID, Drug form: DROP, Start date: 09/19/16 17:00:00 CDT , Duration: 30 day, Stop date: 10/19/16 9:00:00 CDT Notes: (Same as: Restasis) Start Date: 09/19/16 Stop Date: 09/22/16 Status: Discontinued doxycycline monohydrate 100 mg oral tablet 100 mg=1 tab, PO, Q12H, X 7 day, # 14 tab, 0 Refill(s), Pharmacy: [facility] [place] [id number] Start Date: 09/21/16 Stop Date: 09/28/16 Status: Suspended DuoNeb inhalation solution 3 ml, Route: NEB, Drug Form: SOLN, Dosing Weight 43.182, kg, PRN, PRN Respirator y Protocol, Start date: 09/19/16 9:37:00 CDT, Duration: 30 day, Stop date: 10/19 9:36:00 CDT Notes: (Same as: Duoneb) Start Date: 09/19/16 Stop Date: 09/22/16 Status: Discontinued ethambutol 1,200 mg, 3 tab, Route: PO, Drug form: TAB, Q-M-W-F, Dosing Weight 42.33, kg, St art date: 09/20/16 18:00:00 CDT, Duration: 30 day, Stop date: 10/18/16 9:00:00 C DT Notes: (Same as: Myambutol) Start Date: 09/20/16 Stop Date: 09/22/16 Status: Discontinued fluticasone nasal 0.05 mg/inh spray 2 spray, Route: NASAL, Drug Form: SPRY, Dosing Weight 43.182, kg, Daily, Start d ate: 09/20/16 9:00:00 CDT, Duration: 30 day, Stop date: 10/19/16 9:00:00 CDT Notes: (Same as: Flonase) Start Date: 09/20/16 Stop Date: 09/22/16 Status: Discontinued hydrALAZINE 10 mg, 0.5 mL, Route: IVP, Drug form: INJ, Q6H, Dosing Weight 42.33, kg, PRN Della vated BP, Start date: 09/21/16 16:59:00 CDT, Duration: 30 day, Stop date: 16:58:00 CDT Notes: (Same as: Apresoline)Push over 5 minutes Start Date: 09/21/16 Stop Date: 09/22/16 Status: Discontinued lisinopril 5 mg, 1 tab, Route: PO, Drug form: TAB, Daily, Dosing Weight 42.33, kg, Priority : STAT, Start date: 09/21/16 17:36:00 CDT, Duration: 30 day, Stop date: 10/21/16 9:00:00 CDT Notes: (Same as: Prinivil, Zestril) Start Date: 09/21/16 Stop Date: 09/22/16 Status: Discontinued lisinopril 5 mg, Route: PO, Daily, Dosing Weight 42.33, kg, Start date: 09/22/16 9:00:00 CD T, Duration: 30 day, Stop date: 10/21/16 9:00:00 CDT Start Date: 09/22/16 Stop Date: 09/21/16 Status: Deleted lisinopril 5 mg, PO, Daily, 0 Refill(s) Start Date: 09/21/16 Status: Ordered morphine Sulfate 2 mg, 1 mL, Route: IVP, Drug form: INJ, Q4H, Dosing Weight 43.182, kg, PRN Pain Score 7-10, Start date: 09/19/16 1:37:00 CDT, Duration: 30 day, Stop date: 10/19 1:36:00 CDT Notes: (Same as:MORPhine Sulfate) Start Date: 09/19/16 Stop Date: 09/22/16 Status: Discontinued nitroglycerin 0.4 mg sublingual tablet 0.4 mg, 1 tab, Route: SL, Drug form: TAB, Q5Min, Dosing Weight 43.182, kg, PRN C hest Pain, Start date: 09/19/16 0:49:00 CDT, Duration: 3 doses or times, Stop da te: Limited # of times Notes: (Same as:Nitroquick, Nitrostat)"Do Not Crush" Sublingual tablet Start Date: 09/19/16 Stop Date: 09/22/16 Status: Discontinued ondansetron 4 mg, 2 mL, Route: IVP, Drug form: INJ, Q6H, Dosing Weight 43.182, kg, PRN Nause a & Vomiting, Start date: 09/19/16 1:37:00 CDT, Duration: 30 day, Stop date: 10/19/16 1:36:00 CDT Notes: (Same as: Zofran) MEDICATION WASTE Product Size: 4 mgProduct Was peewee: ___ mg Start Date: 09/19/16 Stop Date: 09/22/16 Status: Discontinued rifaMPIN 600 mg, 2 cap, Route: PO, Drug form: CAP, Q-M-W-F, Dosing Weight 42.33, kg, Star t date: 09/20/16 18:00:00 CDT, Duration: 30 day, Stop date: 10/18/16 9:00:00 CDT Notes: (Same as: Rifadin) Start Date: 09/20/16 Stop Date: 09/22/16 Status: Discontinued Rocephin + sodium chloride 0.9% INJ 100 mL 1 gm, Route: IVPB, [id number], Dosing Weight 43.182, kg, Start date: 09/20/16 0:00: 00 CDT, Duration: 30 day, Stop date: 10/19/16 0:00:00 CDT Notes: (Same As: Rocephin).Use with 100 mL NS and infuse over 30 min MEDICA TION WASTE Product Size: 1000 mgProduct Wasted: ___ mg Start Date: 09/20/16 Stop Date: 09/20/16 Status: Discontinued Saline Flush 0.9% 10 mL, Route: IVP, Drug Form: INJ, Dosing Weight 43.182, kg, PRN, PRN Line Flush , Start date: 09/18/16 14:47:00 CDT, Duration: 30 day, Stop date: 10/18/16 14:46 :00 CDT Notes: (Same as: BD Posiflush) Start Date: 09/18/16 Stop Date: 09/22/16 Status: Discontinued sodium chloride 0.9% 1000 ml INJ 1,000 mL 1,000 mL, Rate: 75 ml/hr, Infuse over: 13.3 hr, Route: IV, Dosing Weight 43.182 kg, Total Volume: 1,000, Priority: STAT, Start date: 09/18/16 23:09:00 CDT, Dura tion: 1 doses or times, Stop date: 09/19/16 12:26:00 CDT Start Date: 09/18/16 Stop Date: 09/18/16 Status: Completed Sodium Chloride 3% inhalation solution 4 mL, Route: NEB, Drug Form: SOLN, ONCE, Start date: 09/19/16 19:24:00 CDT, Stop date: 09/19/16 19:24:00 CDT Notes: SEE RT DOCUMENTATION (Same as: Hypertonic Saline 3%, Inhalation) Start Date: 09/19/16 Stop Date: 09/19/16 Status: Completed sodium chloride 7% inhalation solution 4 mL, Route: NEB, Drug Form: AERO, Dosing Weight 42.33, kg, ONCE, Start date: 18:40:00 CDT, Stop date: 09/19/16 18:40:00 CDT, Pediatric Dosing Start Date: 09/19/16 Stop Date: 09/19/16 Status: Discontinued timolol ophthalmic 1 drp, Route: OPTH, BID, Drug form: SOLN, Start date: 09/19/16 17:00:00 CDT, Dur ation: 30 day, Stop date: 10/19/16 9:00:00 CDT Notes: (Same As: Timoptic, Betimol) Start Date: 09/19/16 Stop Date: 09/22/16 Status: Discontinued Zithromax 500 mg oral tablet 500 mg, 2 tab, Route: PO, Drug form: TAB, Daily, Dosing Weight 43.182, kg, Start date: 09/19/16 6:00:00 CDT, Duration: 30 day, Stop date: 10/18/16 6:00:00 CDT Notes: Take 1 hour before or 2 hours after meals.(Same As: Zithromax) Start Date: 09/19/16 Stop Date: 09/20/16 Status: Discontinued Results ELECTROLYTES 1 2 3 Most recent to oldest [Reference Range]: 137 mEq/L (09/20/16 5:09 AM) 136 mEq/L (09/19/16 3:33 AM) 131 mEq/L *LOW* (09/18/16 3:23 PM) Sodium Lvl [135-145 mEq/L] 4.0 mEq/L (09/20/16 5:09 AM) 3.7 mEq/L (09/19/16 3:33 AM) 4.5 mEq/L (09/18/16 3:23 PM) Potassium Lvl [3.5-5.1 mEq/L] 103 mEq/L (09/20/16 5:09 AM) 101 mEq/L (09/19/16 3:33 AM) 96 mEq/L (09/18/16 3:23 PM) Chloride Lvl [95-109 mEq/L] 26 mEq/L (09/20/16 5:09 AM) 26 mEq/L (09/19/16 3:33 AM) 26 mEq/L (09/18/16 3:23 PM) CO2 [24-32 mEq/L] 12.0 mEq/L (09/20/16 5:09 AM) 12.7 mEq/L (09/19/16 3:33 AM) 13.5 mEq/L (09/18/16 3:23 PM) AGAP [10.0-20.0 mEq/L] CHEM PANEL 1 2 3 Most recent to oldest [Reference Range]: 0.59 mg/dL (09/20/16 5:09 AM) 0.63 mg/dL (09/19/16 3:33 AM) 0.77 mg/dL (09/18/16 3:23 PM) Creatinine Lvl [0.50-1.40 mg/dL] 85 mL/min/1.73m2 1 *NA* (09/20/16 5:09 AM) 83 mL/min/1.73m2 2 *NA* (09/19/16 3:33 AM) 72 mL/min/1.73m2 3 *NA* (09/18/16 3:23 PM) eGFR 7 mg/dL (09/20/16 5:09 AM) 8 mg/dL (09/19/16 3:33 AM) 9 mg/dL (09/18/16 3:23 PM) BUN [7-22 mg/dL] 13 (09/19/16 3:33 AM) 12 (09/18/16 3:23 PM) B/C Ratio [6-25] 103 mg/dL *HI* (09/20/16 5:09 AM) 106 mg/dL *HI* (09/19/16 3:33 AM) 107 mg/dL *HI* (09/18/16 3:23 PM) Glucose Lvl [70-99 mg/dL] 6.8 g/dL (09/19/16 3:33 AM) 7.9 g/dL (09/18/16 3:23 PM) Total Protein [6.4-8.4 g/dL] 3.1 g/dL *LOW* (09/19/16 3:33 AM) 3.7 g/dL (09/18/16 3:23 PM) Albumin Lvl [3.5-5.0 g/dL] 3.7 g/dL (09/19/16 3:33 AM) 4.2 g/dL (09/18/16 3:23 PM) Globulin [2.7-4.2 g/dL] 0.8 (09/19/16 3:33 AM) 0.9 (09/18/16 3:23 PM) A/G Ratio [0.7-1.6] 8.6 mg/dL (09/20/16 5:09 AM) 8.5 mg/dL (09/19/16 3:33 AM) 9.0 mg/dL (09/18/16 3:23 PM) Calcium Lvl [8.5-10.5 mg/dL] 1.9 mg/dL (09/19/16 3:33 AM) Magnesium Lvl [1.8-2.4 mg/dL] 10 unit/L (09/19/16 3:33 AM) 10 unit/L (09/18/16 3:23 PM) ALT [0-65 unit/L] 13 unit/L (09/19/16 3:33 AM) 22 unit/L (09/18/16 3:23 PM) AST [0-37 unit/L] 57 unit/L (09/19/16 3:33 AM) 68 unit/L (09/18/16 3:23 PM) Alk Phos [39-136 unit/L] 0.4 mg/dL (09/19/16 3:33 AM) 0.5 mg/dL (09/18/16 3:23 PM) Bili Total [0.2-1.3 mg/dL] <0.05 ng/mL (09/21/16 2:56 PM) Procalcitonin Lvl [0.00-0.10 ng/mL] 1Result Comment: The eGFR is calculated using [...] from the National Kidney Disease Education Program ( NKDEP) which additionally recommends that when the eGFR is used in patients with extremes of body mass index for purposes of drug dosing, the eGFR should be mul tiplied by the estimated BMI. 2Result Comment: The eGFR is calculated using [...] from the National Kidney Disease Education Program ( NKDEP) which additionally recommends that when the eGFR is used in patients with extremes of body mass index for purposes of drug dosing, the eGFR should be mul tiplied by the estimated BMI. 3Result Comment: The eGFR is calculated using [...] from the National Kidney Disease Education Program ( NKDEP) which additionally recommends that when the eGFR is used in patients with extremes of body mass index for purposes of drug dosing, the eGFR should be mul tiplied by the estimated BMI. CARDIAC ENZYMES 1 2 3 Most recent to oldest [Reference Range]: 52 unit/L (09/18/16 3:23 PM) Total CK [12-191 unit/L] 1.6 ng/mL (09/18/16 3:23 PM) CK MB [0.5-3.6 ng/mL] 3.1 *HI* (09/18/16 3:23 PM) CK MB Index [0.0-2.5] 0.07 ng/mL (09/18/16 8:31 PM) 0.09 ng/mL (09/18/16 3:23 PM) Troponin-I [0.00-0.40 ng/mL] 102 pg/mL *HI* (09/18/16 3:23 PM) BNP [<=100 pg/mL] URINE AND STOOL 1 2 3 Most recent to oldest [Reference Range]: Clear (09/19/16 2:30 AM) Clear (09/18/16 5:00 PM) UA Turbidity [Clear] Ltyellow *NA* (09/19/16 2:30 AM) Ltyellow *NA* (09/18/16 5:00 PM) UA Color 7.0 (09/19/16 2:30 AM) 7.0 (09/18/16 5:00 PM) UA pH [5.0-8.0] 1.005 (09/19/16 2:30 AM) 1.009 (09/18/16 5:00 PM) UA Spec Grav [<=1.030] Negative mg/dL *NA* (09/19/16 2:30 AM) Negative mg/dL *NA* (09/18/16 5:00 PM) UA Glucose [Negative mg/dL] Negative (09/19/16 2:30 AM) Negative (09/18/16 5:00 PM) UA Blood [Negative] 20 mg/dL *ABN* (09/19/16 2:30 AM) Trace mg/dL *ABN* (09/18/16 5:00 PM) UA Ketones [Negative mg/dL] Negative mg/dL (09/19/16 2:30 AM) Negative mg/dL (09/18/16 5:00 PM) UA Protein [Negative mg/dL] <=1.0 mg/dL *NA* (09/19/16 2:30 AM) <=1.0 mg/dL *NA* (09/18/16 5:00 PM) UA Urobilinogen [0.1-1.0 mg/dL] Negative *NA* (09/19/16 2:30 AM) Negative *NA* (09/18/16 5:00 PM) UA Bili [Negative] Negative (09/19/16 2:30 AM) Negative (09/18/16 5:00 PM) UA Leuk Est [Negative] Negative (09/19/16 2:30 AM) Negative (09/18/16 5:00 PM) UA Nitrite [Negative] 3 /HPF (09/19/16 2:30 AM) 3 /HPF (09/18/16 5:00 PM) UA WBC [0-5 /HPF] 1 /HPF (09/19/16 2:30 AM) 3 /HPF *HI* (09/18/16 5:00 PM) UA RBC [0-2 /HPF] None Seen *NA* (09/19/16 2:30 AM) None Seen *NA* (09/18/16 5:00 PM) UA Sq Epi IMMUNOLOGY 1 2 3 Most recent to oldest [Reference Range]: 13.8 mg/dL *LOW* (09/20/16 5:09 AM) Prealbumin [18.0-45.0 mg/dL] HEMATOLOGY 1 2 3 Most recent to oldest [Reference Range]: 7.0 K/CMM (09/20/16 5:09 AM) 6.1 K/CMM (09/19/16 3:33 AM) 9.9 K/CMM (09/18/16 3:23 PM) WBC [3.7-10.4 K/CMM] 3.87 M/CMM *LOW* (09/20/16 5:09 AM) 3.89 M/CMM *LOW* (09/19/16 3:33 AM) 4.37 M/CMM (09/18/16 3:23 PM) RBC [4.20-5.40 M/CMM] 10.4 g/dL *LOW* (09/20/16 5:09 AM) 10.6 g/dL *LOW* (09/19/16 3:33 AM) 11.8 g/dL *LOW* (09/18/16 3:23 PM) Hgb [12.0-16.0 g/dL] 31.4 % *LOW* (09/20/16 5:09 AM) 31.7 % *LOW* (09/19/16 3:33 AM) 35.4 % *LOW* (09/18/16 3:23 PM) Hct [36.0-48.0 %] 81.1 fL (09/20/16 5:09 AM) 81.4 fL (09/19/16 3:33 AM) 81.0 fL (09/18/16 3:23 PM) MCV [80.0-98.0 fL] 27.0 pg (09/20/16 5:09 AM) 27.3 pg (09/19/16 3:33 AM) 27.1 pg (09/18/16 3:23 PM) MCH [27.0-31.0 pg] 33.3 g/dL (09/20/16 5:09 AM) 33.5 g/dL (09/19/16 3:33 AM) 33.5 g/dL (09/18/16 3:23 PM) MCHC [32.0-36.0 g/dL] 15.4 % *HI* (09/20/16 5:09 AM) 15.1 % *HI* (09/19/16 3:33 AM) 15.5 % *HI* (09/18/16 3:23 PM) RDW [11.5-14.5 %] 207 K/CMM (09/20/16 5:09 AM) 199 K/CMM (09/19/16 3:33 AM) 260 K/CMM (09/18/16 3:23 PM) Platelet [133-450 K/CMM] 7.2 fL *LOW* (09/20/16 5:09 AM) 7.3 fL *LOW* (09/19/16 3:33 AM) 7.5 fL (09/18/16 3:23 PM) MPV [7.4-10.4 fL] 55.8 % (09/20/16 5:09 AM) 62.4 % (09/19/16 3:33 AM) 68.0 % (09/18/16 3:23 PM) Segs [45.0-75.0 %] 24.4 % (09/20/16 5:09 AM) 21.8 % (09/19/16 3:33 AM) 20.4 % (09/18/16 3:23 PM) Lymphocytes [20.0-40.0 %] 12.8 % *HI* (09/20/16 5:09 AM) 11.1 % (09/19/16 3:33 AM) 8.5 % (09/18/16 3:23 PM) Monocytes [2.0-12.0 %] 6.1 % *HI* (09/20/16 5:09 AM) 4.3 % *HI* (09/19/16 3:33 AM) 2.3 % (09/18/16 3:23 PM) Eosinophils [0.0-4.0 %] 0.9 % (09/20/16 5:09 AM) 0.4 % (09/19/16 3:33 AM) 0.8 % (09/18/16 3:23 PM) Basophils [0.0-1.0 %] 3.9 K/CMM (09/20/16 5:09 AM) 3.8 K/CMM (09/19/16 3:33 AM) 6.8 K/CMM (09/18/16 3:23 PM) Segs-Bands # [1.5-8.1 K/CMM] 1.7 K/CMM (09/20/16 5:09 AM) 1.3 K/CMM (09/19/16 3:33 AM) 2.0 K/CMM (09/18/16 3:23 PM) Lymphocytes # [1.0-5.5 K/CMM] 0.9 K/CMM *HI* (09/20/16 5:09 AM) 0.7 K/CMM (09/19/16 3:33 AM) 0.8 K/CMM (09/18/16 3:23 PM) Monocytes # [0.0-0.8 K/CMM] 0.4 K/CMM (09/20/16 5:09 AM) 0.3 K/CMM (09/19/16 3:33 AM) 0.2 K/CMM (09/18/16 3:23 PM) Eosinophils # [0.0-0.5 K/CMM] 0.1 K/CMM (09/20/16 5:09 AM) 0.1 K/CMM (09/18/16 3:23 PM) Basophils # [0.0-0.2 K/CMM] 15.3 seconds *HI* (09/19/16 3:33 AM) 14.3 seconds (09/18/16 3:23 PM) PT [12.0-14.7 seconds] 1.18 *HI* (09/19/16 3:33 AM) 1.09 (09/18/16 3:23 PM) INR [0.85-1.17] 34.3 seconds (09/19/16 3:33 AM) 34.3 seconds (09/18/16 3:23 PM) PTT [22.9-35.8 seconds] Immunizations Given and Recorded Vaccine Date Status Refusal Reason influenza virus vaccine, inactivated1 03/17/13 Given 1Result Comment: fluzone preservative free (>3 yrs.) [[id number]]. Migrated from [facility] ; Data migrated from [employer] on 06/12/2015. Procedures Procedure Date Related Diagnosis Body Site Miscellaneous operations1 1right hand surgery Social History Social History Type Response Alcohol Current, Type Wine. Frequency: 1-2 times per year. 2 Drinks/Episode average. 3.00 Drinks/Episode maximum. Last use: 3 months ago. Previous treatment: None. Smoking Status Never smoker; Exposure to Tobacco Smoke None; Cigarette Smoking Last 365 Days No; Reg Smoking Cessation Counseling No Assessment and Plan Extracted from: Title: Clinical Document Author: Donta Castle MD Date: 09/20/16 INFECTIOUS DISEASES PROGRESS NOTE DONTA CASTLE M.D. REASON FOR ID FOLLOW UP: possible MAC CAP ASSESMENT: 1. Possible community-acquired pneumonia. 2. Bronchitis. 3. Bronchiectasis 4. Rule out MAC infection. 5. Cachexia. PLAN: its best if we can get AFB samples x 3 or bronch clinically looks possible MAC agree with pulmonary will follow september MAC rx Rifampin + clartithromycin or azithromycin/Ethambutol Disposition Recommendation: ID Antibiotic plan Oral/IV: PICC line placement: Yes/NO ANTIBIOTICS: ceftriaxone + azithromycin ID follow up on discharge call Dr Castle [phone] SUBJECTIVE: Seen and examined. Events noted. VITAL SIGNS: Vitals and Temp: VitalsTmp(F)[id number] 09/20 15:[id number]--- 09/20 11:[id number]--- 09/20 08:19 94 21% 09/20 07:[id number]--- 09/20 04:[id number]--- 24 Hr Tmax: 98.7F (37.06c) at 09/20 00:00Vital Signs are the last 5 in the past 48 hours. ROS: otherwise unremarkable PHYSICAL EXAMINATION: Awake lying on bed NAD No thrush CTAB RRR S1&S2 BS+ve NT/ND No edema No Rash No focal defecit IVs ok LABORATORY DATA: Labs (Last four charted values) WBC 7.0(SEPTEMBER 20)6.1(SEPTEMBER 19)9.9(SEPTEMBER 18) Hgb L 10.4(SEPTEMBER 20)L 10.6(SEPTEMBER 19)L 11.8(SEPTEMBER 18) Hct L 31.4(SEPTEMBER 20)L 31.7(SEPTEMBER 19)L 35.4(SEPTEMBER 18) Plt 207(SEPTEMBER 20)199(SEPTEMBER 19)260(SEPTEMBER 18) Na 137(SEPTEMBER 20)136(SEPTEMBER 19)L 131(SEPTEMBER 18) K 4.0(SEPTEMBER 20)3.7(SEPTEMBER 19)4.5(SEPTEMBER 18) CO2 26(SEPTEMBER 20)26(SEPTEMBER 19)26(SEPTEMBER 18) Cl 103(SEPTEMBER 20)101(SEPTEMBER 19)96(SEPTEMBER 18) Cr 0.59(SEPTEMBER 20)0.63(SEPTEMBER 19)0.77(SEPTEMBER 18) BUN 7(SEPTEMBER 20)8(SEPTEMBER 19)9(SEPTEMBER 18) Glucose Random H 103(SEPTEMBER 20)H 106(SEPTEMBER 19)H 107(SEPTEMBER 18) Mg 1.9(SEPTEMBER 19) Ca 8.6(SEPTEMBER 20)8.5(SEPTEMBER 19)9.0(SEPTEMBER 18) PT H 15.3(SEPTEMBER 19)14.3(SEPTEMBER 18) INR H 1.18(SEPTEMBER 19)1.09(SEPTEMBER 18) PTT 34.3(SEPTEMBER 19)34.3(SEPTEMBER 18) Troponin 0.07(SEPTEMBER 18)0.09(SEPTEMBER 18) CK MB 1.6(SEPTEMBER 18) Total CK 52(SEPTEMBER 18) CULTURES: DATE/SOURCE/RESULT/ SENSITIVITIES IMAGING: Scheduled Meds (8): 09/19/16 aspirin (Aspirin Enteric Coated) 81 mg PO Daily 09/19/16 azithromycin (Zithromax 500 mg oral tablet) 500 mg PO Daily 09/19/16 brimonidine ophthalmic 1 drp OPTH BID 09/20/16 cefTRIAXone + sodium chloride 0.9% INJ 100 mL (Rocephin + sodium chloride 0.9% INJ 100 mL) 1 gm IVPB [id number] 200 ml/hr 09/19/16 cycloSPORINE ophthalmic 1 drp BOTH EYES BID 09/19/16 diltiazem (Cartia XT) 240 mg PO Daily 09/20/16 fluticasone nasal (fluticasone nasal 0.05 mg/inh spray) 2 spray NASAL Daily 09/19/16 timolol ophthalmic 1 drp OPTH BID
--- OUTSIDE RECORDS SUMMARY | 2018-05-02 16:34 | XMS REPORT | Summary of Care ---
Author Author [facility] Organization [facility] Address Unknown Phone Unavailable Encounter CRISTINA Bucio([place]) [id number] Date(s): 03/07/17 - 03/07/17 [facility] [address] [place] [address]- Discharge Disposition: Home or Self Care Attending Physician: Francis Green MD Referring Physician: Francis Green MD Vital Signs No data available for this section Problem List Condition Effective Dates Status Health Status Informant Benign essential 04/19/08 Active hypertension1 Blepharitis2 01/07/13 Active Blood chemistry 05/30/10 Active abnormal3 Disorder of skin4 01/07/13 Active Dyspnea5 01/18/14 Active Epigastric pain6 12/02/11 Active Gastroesophageal 08/23/13 Active reflux disease7 High blood Resolved pressure(Confirmed) Hip pain8, 9, 10 07/11/14 Active HTN(Confirmed) Resolved HTN(Confirmed) Resolved HTN - Resolved Hypertension(Confirm ed) Eokqltaggzkiizw97 02/07/14 Active Neck pain12 01/18/14 Active Ngibixyqhhls25 Active Pleuritic pain14 04/26/13 Active Rib pain15, 16, 17 07/11/14 Active Severe Active protein-calorie malnutrition(Confirm ed) Varicose veins of 12/02/11 Active lower ubrxzmorq33 1Data migrated from [employer] on 10/11/14. [...] codeine1 Active HYDROcodone Active 1Data migrated from [employer] on 07/12/15. Originally documented as CODEINE. Medications No data available for this section Results No data available for this section Immunizations Given and Recorded Vaccine Date Status Refusal Reason influenza virus vaccine, inactivated1 03/17/13 Given 1Result Comment: fluzone preservative free (>3 yrs.) [[id number]]. Migrated from OBS ; Data migrated from [employer] on 06/12/2015. Procedures Procedure Date Related Diagnosis [...] Smoking Cessation Counseling No Assessment and Plan No data available for this section
--- OUTSIDE RECORDS SUMMARY | 2018-05-02 16:34 | XMS REPORT | Summary of Care ---
Author Author [facility] Organization [facility] Address Unknown Phone Unavailable Encounter HQ [place]) [id number] Date(s): 07/31/15 - 07/31/15 [facility] [address] [place] [address]- Discharge Disposition: Home Attending Physician: Jesus Mckenzie MD Admitting Physician: Jesus Mckenzie MD Vital Signs No data available for this section Problem List Condition Effective Dates Status Health Status Informant Benign essential 04/19/08 Active hypertension1 Blepharitis2 01/07/13 Active Blood chemistry 05/30/10 Active abnormal3 Disorder of skin4 01/07/13 Active Dyspnea5 01/18/14 Active Epigastric pain6 12/02/11 Active Gastroesophageal 08/23/13 Active reflux disease7 GI Resolved bleeding(Confirmed) High blood Resolved pressure(Confirmed) Hip pain8, 9, 10 07/11/14 Active HTN(Confirmed) Resolved HTN(Confirmed) Resolved HTN - Resolved Hypertension(Confirm ed) Psgpxrvutqltwcz18 02/07/14 Active Neck pain12 01/18/14 Active Uxarikrkbfib64 Active Pleuritic pain14 04/26/13 Active Preoperative 02/15/11 Resolved tvmgspeeeg85 Rib pain16, 17, 18 07/11/14 Active 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 [...] 10/11/14. 15Data migrated from [employer] on 11/25/14. 16Data migrated from [employer] on 11/16/14. 17Data migrated from [employer] on 11/16/14. 18Data migrated from [employer] on 10/11/14. 19Data migrated from [employer] on 10/11/14. Allergies, Adverse Reactions, Alerts Substance Reaction Severity Status codeine1 Active 1Data migrated from [employer] on 07/12/15. Originally documented as CODEINE. Medications No data available for this section Results No data available for this section Immunizations Vaccine Date Refusal Reason influenza virus vaccine, inactivated1 03/17/13 1Result Comment: fluzone preservative free (>3 yrs.) [[id number]]. Migrated from OBS ; Data migrated from [...]
--- OUTSIDE RECORDS SUMMARY | 2018-05-02 16:34 | XMS REPORT | Summary of Care ---
Author Author [facility] Organization [facility] Address Unknown Phone Unavailable Encounter [facility] [place]) [id number] Date(s): 09/29/17 - 09/29/17 [facility] [address] [place] [address]- [phone] Discharge Disposition: Home or Self Care Attending Physician: Francis Green MD Vital Signs No [...] HTN(Confirmed) Resolved HTN - Resolved Hypertension(Confirm ed) Abbbnzcyfwfgrmg40 02/07/14 Active Neck pain12 01/18/14 Active Qzpmlqfvjepc58 Active Pleuritic pain14 04/26/13 Active Rib pain15, 16, 17 07/11/14 Active Severe Active protein-calorie malnutrition(Confirm ed) 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 [...] 1Result Comment: fluzone preservative free (>3 yrs.) [[id number]]. Migrated from OBS ; Data migrated from [employer] on 06/12/2015. Procedures Procedure Date Related Diagnosis Body Site Status Laparoscopic cholecystectomy 07/02/17 Completed Colonoscopy Completed CTR - Carpal tunnel release Completed Esophagogastroduodenoscopy Completed Social History Social History Type Response Alcohol Current, Type Wine. Frequency: 1-2 times per year. 2 Drinks/Episode average. 3.00 Drinks/Episode maximum. Last use: 3 months ago. Previous treatment: None. Smoking Status Never smoker; Exposure to Tobacco Smoke None; Cigarette Smoking Last 365 Days No; Reg Smoking Cessation Counseling No entered on: 07/10/17 Assessment and Plan No data available for this section
--- OUTSIDE RECORDS SUMMARY | 2018-05-02 16:34 | XMS REPORT | Summary of Care ---
Author Author [facility] General [facility] Organization [facility] Address Unknown Phone Unavailable Encounter HQ [place]) [id number] Date(s): 07/02/17 - 07/02/17 [facility] General [facility] [address] [place] [address]- [phone] Discharge Disposition: Home or Self Care Attending Physician: Geo Aranda MD Vital Signs No data available for [...] HTN(Confirmed) Resolved HTN - Resolved Hypertension(Confirm ed) Avpujlaneccxmlk11 02/07/14 Active Neck pain12 01/18/14 Active Vrypfuqkrfqm71 Active Pleuritic pain14 04/26/13 Active Rib pain15, 16, 17 07/11/14 Active Severe Active protein-calorie malnutrition(Confirm ed) 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 [...] on 07/12/15. Originally documented as CODEINE. Medications Zofran ODT 4 mg oral tablet, disintegrating 4 mg=1 tab, PO, Q4H, PRN Nausea, # 30 tab, 0 Refill(s) Start Date: 07/04/17 Status: Ordered Results No data available for this section Immunizations Given and Recorded Vaccine Date Status Refusal Reason influenza virus vaccine, inactivated1 03/17/13 Given 1Result Comment: fluzone preservative free (>3 yrs.) [[id number]]. Migrated from OBS ; Data migrated from [...]
--- OUTSIDE RECORDS SUMMARY | 2018-05-02 16:34 | XMS REPORT | Summary of Care ---
Author Organization Unknown Address Unknown Phone Unavailable Encounter HQ Monicalucar_christal([place]) [id number] Date(s): 01/18/14 - 01/18/14 [facility] [address] [place], [place] [id number] [place] [address] Final: Other Acute Sinusitis Final: Other Dyspnea and Respiratory Abnormality Final: Cervicalgia Discharge Disposition: Home Physician Attending: Jesus Mckenzie MD Reason for Visit 461.8 Problem List Condition Effective Dates Status Health Status Informant GI Resolved bleeding(Confirmed) High blood Resolved pressure(Confirmed) HTN(Confirmed) Resolved HTN(Confirmed) Resolved HTN - Resolved Hypertension(Confirm ed) Allergies, Adverse Reactions, Alerts Substance Reaction Severity Status codeine Active Medications No data available for this section Medications Administered During Your Visit No data available for this section Immunizations No data available for this section Social History Social History Type Response Alcohol Use: Current, Type: Wine, Frequency: 1-2 times per year, Previous treatment: None
--- OUTSIDE RECORDS SUMMARY | 2018-05-02 16:34 | XMS REPORT | Summary of Care ---
Author Author [facility] Organization [facility] Address Unknown Phone Unavailable Encounter CRISTINA Bucio([place]) [id number] Date(s): 06/24/17 - 06/24/17 [facility] [address] [place] [address]- [phone] Encounter Diagnosis Generalized abdominal pain (Final) - 06/30/17 Abnormal weight loss (Final) - Cyst of kidney, acquired (Final) - Splenomegaly, not elsewhere classified (Final) - Diverticulosis of large intestine without perforation or abscess without bleedin g (Final) - Diaphragmatic hernia without obstruction or gangrene (Final) - Fatty (change of) liver, not elsewhere classified (Final) - Bronchiectasis, uncomplicated (Final) - Atherosclerosis of aorta (Final) - Other disorders of lung (Final) - Discharge Disposition: Home or Self Care Attending Physician: Geo Aranda MD Referring Physician: Geo Aranda MD Vital Signs No [...] HTN(Confirmed) Resolved HTN - Resolved Hypertension(Confirm ed) Imngwsxbmkugmev27 02/07/14 Active Neck pain12 01/18/14 Active Phawnjqzwujg08 Active Pleuritic pain14 04/26/13 Active Rib pain15, 16, 17 07/11/14 Active Severe Active protein-calorie malnutrition(Confirm ed) 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 2Data migrated from [employer] [...] on 07/12/15. Originally documented as CODEINE. Medications Omnipaque 300 100 mL, Route: IV, Drug Form: SOLN, ONCE, Start date: 06/24/17 10:33:00 PEARL STRINGER, Sto p date: 06/24/17 10:33:00 PEARL STRINGER Notes: (Same as:Omnipaque 300).WASTE: F/P - Black; E - Municipal Trash Bin Start Date: 06/24/17 Stop Date: 06/24/17 Status: Completed Results CHEM PANEL Most recent to 1 oldest [Reference Range]: eGFR 84 mL/min/1.73m2 1 *NA* (06/24/17 10:08 AM) POC Creatinine 0.6 mg/dL [0.5-1.4 mg/dL] (06/24/17 10:08 AM) 1Result Comment: The eGFR is calculated using [...] be mul tiplied by the estimated BMI. Immunizations Given and Recorded Vaccine Date Status Refusal Reason influenza virus vaccine, inactivated1 03/17/13 Given 1Result Comment: fluzone preservative free (>3 yrs.) [[id number]]. Migrated from [employer] ; Data migrated from [employer] on 06/12/2015. Procedures Procedure Date Related Diagnosis [...]
--- OUTSIDE RECORDS SUMMARY | 2018-05-02 16:34 | XMS REPORT | Summary of Care ---
Author Author [facility] General Surgery [facility] Organization [facility] General Surgery [facility] Address Unknown Phone Unavailable Encounter CRISTINA Bucio([place]) [id number] Date(s): 05/30/17 - 05/30/17 [facility] [address] [facility] [place] [address]- [phone] Discharge Disposition: Home or Self Care Attending Physician: Geo Aranda MD Vital Signs Most recent to 1 oldest [Reference Range]: Height 149.86 cm (05/30/17 10:27 AM) Temperature Oral 97.4 DegF [96.4-99.1 DegF] (05/30/17 10:27 AM) Blood Pressure 123/74 mmHg [90-140/60-90 mmHg] (05/30/17 10:27 AM) Peripheral Pulse 60 bpm Rate [60-100 bpm] (05/30/17 10:27 AM) Weight 40.625 kg (05/30/17 10:27 AM) Body Mass Index 18.09 m2 (05/30/17 10:27 AM) Problem List Condition Effective Dates Status Health Status Informant Benign essential 04/19/08 Active hypertension1 Blepharitis2 01/07/13 Active Blood chemistry 05/30/10 Active abnormal3 Disorder of skin4 01/07/13 Active Dyspnea5 01/18/14 Active Epigastric pain6 12/02/11 Active Gastroesophageal 08/23/13 Active reflux disease7 High blood Resolved pressure(Confirmed) Hip pain8, 9, 10 07/11/14 Active HTN(Confirmed) Resolved HTN(Confirmed) Resolved HTN - Resolved Hypertension(Confirm ed) Cpmlnpbrfgajoog87 02/07/14 Active Neck pain12 01/18/14 Active Slhqmnutvysx01 Active Pleuritic pain14 04/26/13 Active Rib pain15, 16, 17 07/11/14 Active Severe Active protein-calorie malnutrition(Confirm ed) 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 [...] on 07/12/15. Originally documented as CODEINE. Medications CeleBREX 200 mg oral capsule 200 mg=1 cap, PO, BID, 0 Refill(s) Start Date: 05/30/17 Status: Ordered Results No data available for this section Immunizations Given and Recorded Vaccine Date Status Refusal Reason influenza virus vaccine, inactivated1 03/17/13 Given 1Result Comment: fluzone preservative free (>3 yrs.) [[id number]]. Migrated from OBS ; Data migrated from [employer] on 06/12/2015. Procedures Procedure Date Related Diagnosis [...]
--- OUTSIDE RECORDS SUMMARY | 2018-05-02 16:34 | XMS REPORT | CCD ---
Author Author Auto Generated Organization [facility] Address Unknown Phone Unavailable Care Team Providers Care Etl Consultant Name Role Phone Star Francois CP Allergies, Adverse Reactions, Alerts Substance Reaction Status codeine Active Problem List Condition Effective Dates Status GI bleeding Resolved High blood pressure Resolved HTN Resolved HTN Resolved HTN - Hypertension Resolved Medications Medication Instructions Start Date End Date Status Ambien 5 mg, Route: PO, Bedtime, Dosing 04/13/2013 04/13/2013 Deleted Weight 52.273, kg, PRN Sleep, Start date: 04/13/13 18:45:00, Duration: 30 day, Stop date: 05/13/13 18:44:00 Dilt-XR 240 mg/24 240 mg=1 cap, PO, Bedtime, 0 04/13/2013 Ordered hours oral capsule, Refill(s) extended release ceftriaxone + Sodium 1 gm, Route: IVPB, [id number], Dosing 04/13/2013 04/15/2013 Discontinued Chloride 0.9% IV 100 Weight 52.273, kg, Priority: mL Routine, Start date: 04/13/13 19:00:00, Duration: 30 day, Stop date: 05/12/13 19:00:00(Same As: Rocephin). Use with 100ml NS mini-bag PLUS and infuse over 30 min azithromycin 500 mg, 250 mL, Route: IVPB, Drug 04/13/2013 04/15/2013 Discontinued form: PDR/INJ, [id number], Dosing Weight 52.273, kg, Priority: Routine, Start date: 04/13/13 19:00:00, Duration: 30 day, Stop date: 05/12/13 19:00:00Same as: Zithromax ondansetron 4 mg, 2 mL, Route: IVP, Drug form: 04/13/2013 04/15/2013 Discontinued INJ, Q6H, Dosing Weight 52.273, kg, PRN Nausea & Vomiting, Start date: 04/13/13 18:13:00, Duration: 30 day, Stop date: 05/13/13 18:12:00(Same as: Zofran) acetaminophen 650 mg, 2 tab, Route: PO, Drug 04/13/2013 04/15/2013 Discontinued form: TAB, Q4H, Dosing Weight 52.273, kg, PRN Pain Score 1-3, For fever > 100.4. Not to exceed 4 grams in 24 hours, Start date: 04/13/13 18:13:00, Duration: 30 day, Stop date: 05/13/13 18:12:00Do not exceed 4 gm/day. (Same as: Tylenol) Tessalon Perles 100 mg, 1 cap, Route: PO, Drug 04/13/2013 04/15/2013 Discontinued form: CAP, TID, Dosing Weight 52.273, kg, PRN Cough, Start date: 04/13/13 18:44:00, Duration: 30 day, Stop date: 05/13/13 18:43:00(Same As: Tessalon Perles)"Do Not Crush" Combigan ophthalmic 1 drp, Route: BOTH EYES, Q12H, Drug 04/13/2013 04/13/2013 Deleted solution form: SOLN, Start date: 04/13/13 21:00:00, Duration: 30 day, Stop date: 05/13/13 9:00:00 nitroglycerin 0.4 mg 0.4 mg, 1 tab, Route: SL, Drug 04/13/2013 04/15/2013 Discontinued sublingual tablet form: TAB, Q5Min, PRN Chest Pain, Start date: 04/13/13 18:43:00, Duration: 30 day, Stop date: 05/13/13 18:42:00(Same as:Nitroquick, Nitrostat)"Do Not Crush" Sublingual tablet atropine 0.5 mg, 5 mL, Route: IVP, Drug 04/13/2013 04/15/2013 Discontinued form: INJ, PRN, PRN Bradycardia, Start date: 04/13/13 18:43:00, Duration: 30 day, Stop date: 05/13/13 18:42:00 Combigan ophthalmic 1 drp, Route: OPTH, Q12H, Drug 04/13/2013 04/13/2013 Canceled solution form: SOLN, Start date: 04/13/13 21:00:00, Duration: 30 day, Stop date: 05/13/13 9:00:00 calcium-vitamin D 1 tab, Route: PO, Drug Form: TAB, 04/14/2013 04/15/2013 Discontinued 500 mg-125 units Dosing Weight 52.273, kg, Daily, oral tablet Start date: 04/14/13 9:00:00, Duration: 30 day, Stop date: 05/13/13 9:00:00(Same As: Hilary-D, OsCal-D, Oyster Calcium) Dilt-XR 240 mg, 1 cap, Route: PO, Drug 04/13/2013 04/15/2013 Discontinued form: ERCAP, Bedtime, Dosing Weight 52.273, kg, Start date: 04/13/13 21:00:00, Duration: 30 day, Stop date: 05/12/13 21:00:00(Same as: Jah TRAORE) Before meals. DO NOT CRUSH. Restasis 0.05% 1 drp, BOTH EYES, BID, # 1 pkg, 0 04/13/2013 Ordered ophthalmic emulsion Refill(s) Combigan ophthalmic 1 drp, OPTH, Q12H, # 10 ml, 0 04/13/2013 Ordered solution Refill(s) calcium-vitamin D 1 tab, PO, Daily, # 250 tab, 0 04/13/2013 Ordered 500 mg-125 units Refill(s) oral tablet cycloSPORINE 1 drp, Route: BOTH EYES, BID, Drug 04/14/2013 04/15/2013 Discontinued ophthalmic form: DROP, Start date: 04/14/13 9:00:00, Duration: 30 day, Stop date: 05/13/13 17:00:00(Same as: Restasis) Aspirin Enteric 81 mg=1 tab, PO, Daily, 0 Refill(s) 04/13/2013 Ordered Coated 81 mg oral delayed release tablet Restoril 7.5 mg, 1 cap, Route: PO, Drug 04/13/2013 04/15/2013 Discontinued form: CAP, Bedtime, PRN Sleep, Start date: 04/13/13 18:49:00, Duration: 30 day, Stop date: 05/13/13 18:48:00(Same As: Restoril) DuoNeb inhalation 3 ml, Route: INHALATION, Drug Form: 04/13/2013 04/15/2013 Discontinued solution SOLN, Dosing Weight 52.273, kg, PRN, PRN Respiratory Protocol, Start date: 04/13/13 14:27:00, Duration: 30 day, Stop date: 05/13/13 14:26:00(Same as: Duoneb) levofloxacin 500 mg 500 mg=1 tab, PO, Daily, # 5 tab, 0 04/15/2013 Ordered oral tablet Refill(s) aspirin 324 mg, Route: CHEW, Drug form: 04/13/2013 04/13/2013 Completed CHEWTAB, ONCE, Dosing Weight 52.273, kg, Priority: STAT, Start date: 04/13/13 14:27:00, Stop date: 04/13/13 14:27:00 Celebrex 200 mg oral 200 mg=1 cap, PO, Daily, Pain, # 10 04/13/2013 Ordered capsule cap, 0 Refill(s) benzonatate 100 mg 100 mg=1 cap, PO, TID, Cough, # 10 04/15/2013 Ordered oral capsule cap, 0 Refill(s) aspirin 81 mg, 1 tab, Route: PO, Drug form: 04/14/2013 04/15/2013 Discontinued ECTAB, Daily, Dosing Weight 52.273, kg, Start date: 04/14/13 9:00:00, Duration: 30 day, Stop date: 05/13/13 9:00:00Do not crush or chew.(Same As: Ecotrin) timolol ophthalmic 1 drp, Route: BOTH EYES, Q12H, Drug 04/13/2013 04/15/2013 Discontinued form: SOLN, Start date: 04/13/13 21:00:00, Duration: 30 day, Stop date: 05/13/13 9:00:00(Same As: Timoptic, Betimol) DuoNeb inhalation 3 ml, Route: INHALATION, Drug Form: 04/13/2013 04/15/2013 Discontinued solution SOLN, Dosing Weight 52.273, kg, RQ4H, PRN Respiratory Protocol, Start date: 04/13/13 18:46:00, Duration: 30 day, Stop date: 05/13/13 18:45:00(Same as: Duoneb) brimonidine 1 drp, Route: BOTH EYES, Q12H, Drug 04/13/2013 04/15/2013 Discontinued ophthalmic form: SOLN, Start date: 04/13/13 21:00:00, Duration: 30 day, Stop date: 05/13/13 9:00:00(Same As: Alphagan) Vital Signs Most recent to oldest [Reference Range]: 1 2 3 Height 152.4 cm (04/13/2013 18:18:00) 152.4 cm (04/13/2013 11:41:00) Temperature Oral [96.4-99.1 DegF] 97.6 DegF (04/15/2013 11:59:00) 98.0 DegF (04/15/2013 07:46:00) 97.6 DegF (04/15/2013 04:00:00) Systolic Blood Pressure [90-140 mmHg] 128 mmHg (04/15/2013 11:59:00) 164 mmHg *HI* (04/15/2013 07:46:00) 116 mmHg (04/14/2013 23:00:00) Diastolic Blood Pressure [60-90 mmHg] 66 mmHg (04/15/2013 11:59:00) 70 mmHg (04/15/2013 07:46:00) 64 mmHg (04/14/2013 23:00:00) Respiratory Rate [14-20 BRMIN] 18 BRMIN (04/15/2013 11:59:00) 18 BRMIN (04/15/2013 07:46:00) 18 BRMIN (04/15/2013 06:52:00) Peripheral Pulse Rate [60-100 bpm] 67 bpm (04/15/2013 11:59:00) 71 bpm (04/15/2013 07:46:00) 72 bpm (04/15/2013 04:00:00) Weight 52.273 kg (04/13/2013 18:18:00) 52.273 kg (04/13/2013 11:41:00) Results URINALYSIS Most recent to oldest [Reference Range]: 1 2 3 UA Turbidity [Clear] Clear (04/13/2013 16:31:00) UA Color Ltyellow *NA* (04/13/2013 16:31:00) UA pH [5.0-8.0] 6.0 (04/13/2013 16:31:00) UA Spec Grav [<=1.030] 1.005 (04/13/2013 16:31:00) UA Glucose [Negative mg/dL] Negative mg/dL *NA* (04/13/2013 16:31:00) UA Blood [Negative] Small *ABN* (04/13/2013 16:31:00) UA Ketones [Negative mg/dL] Trace mg/dL *ABN* (04/13/2013 16:31:00) UA Protein [Negative mg/dL] Negative mg/dL (04/13/2013 16:31:00) UA Urobilinogen [0.1-1.0 mg/dL] <=1.0 mg/dL *NA* (04/13/2013 16:31:00) UA Bili [Negative] Negative *NA* (04/13/2013 16:31:00) UA Leuk Est [Negative] Small *ABN* (04/13/2013 16:31:00) UA Nitrite [Negative] Negative (04/13/2013 16:31:00) UA WBC [0-5 /HPF] 4 /HPF (04/13/2013 16:31:00) UA RBC [0-2 /HPF] 1 /HPF (04/13/2013 16:31:00) UA Sq Epi None Seen *NA* (04/13/2013 16:31:00) CHEMISTRY Most recent to oldest [Reference Range]: 1 2 3 Sodium Lvl [135-145 mEq/L] 144 mEq/L (04/15/2013 04:26:00) 139 mEq/L (04/13/2013 19:02:00) 137 mEq/L (04/13/2013 13:24:00) Potassium Lvl [3.5-5.1 mEq/L] 3.6 mEq/L (04/15/2013 04:26:00) 3.8 mEq/L (04/13/2013 19:02:00) 4.2 mEq/L (04/13/2013 13:24:00) Chloride Lvl [95-109 mEq/L] 109 mEq/L (04/15/2013 04:26:00) 104 mEq/L (04/13/2013:02:00) 102 mEq/L (04/13/2013 13:24:00) CO2 [24-32 mEq/L] 28 mEq/L (04/15/2013:26:00) 25 mEq/L (04/13/2013 19:02:00) 31 mEq/L (04/13/2013 13:24:00) AGAP [10.0-20.0 mEq/L] 10.6 mEq/L (04/15/2013:26:00) 13.8 mEq/L (04/13/2013 19:02:00) 8.2 mEq/L *LOW* (04/13/2013 13:24:00) Creatinine Lvl [0.5-1.4 mg/dL] 0.7 mg/dL (04/15/2013:26:00) 0.7 mg/dL (04/13/2013:02:00) 0.7 mg/dL (04/13/2013 13:24:00) eGFR 82 mL/min/1.73m2 1 *NA* (04/15/2013:26:00) 82 mL/min/1.73m2 2 *NA* (04/13/2013:02:00) 82 mL/min/1.73m2 3 *NA* (04/13/2013 13:24:00) BUN [7-22 mg/dL] 7 mg/dL (04/15/2013:26:00) 11 mg/dL (04/13/2013 19:02:00) 12 mg/dL (04/13/2013 13:24:00) B/C Ratio [6-25] 16 (04/13/2013:02:00) 17 (04/13/2013 13:24:00) Glucose Lvl [70-99 mg/dL] 106 mg/dL 4 *HI* (04/15/2013 04:26:00) 87 mg/dL 5 (04/13/2013 19:02:00) 98 mg/dL 6 (04/13/2013 13:24:00) Total Protein [6.4-8.4 g/dL] 7.9 g/dL (04/13/2013 19:02:00) 7.5 g/dL (04/13/2013 13:24:00) Albumin Lvl [3.5-5.0 g/dL] 4.3 g/dL (04/13/2013 19:02:00) 3.9 g/dL (04/13/2013 13:24:00) Globulin [2.0-4.0 g/dL] 3.6 g/dL (04/13/2013 19:02:00) 3.6 g/dL (04/13/2013 13:24:00) A/G Ratio [0.7-1.6] 1.2 (04/13/2013 19:02:00) 1.1 (04/13/2013 13:24:00) Calcium Lvl [8.5-10.5 mg/dL] 8.9 mg/dL (04/15/2013 04:26:00) 10.1 mg/dL (04/13/2013:02:00) 10.1 mg/dL (04/13/2013 13:24:00) ALT [0-65 unit/L] 19 unit/L (04/13/2013 19:02:00) 17 unit/L (04/13/2013 13:24:00) AST [0-37 unit/L] 28 unit/L (04/13/2013 19:02:00) 18 unit/L (04/13/2013 13:24:00) Alk Phos [39-136 unit/L] 86 unit/L (04/13/2013 19:02:00) 81 unit/L (04/13/2013 13:24:00) Bili Total [0.2-1.3 mg/dL] 0.4 mg/dL (04/13/2013 19:02:00) 0.4 mg/dL (04/13/2013 13:24:00) Lactic Acid Lvl [0.5-2.2 mMol/L] 1.3 mMol/L (04/13/2013 19:02:00) 1.0 mMol/L (04/13/2013 17:35:00) Total CK [12-191 unit/L] 165 unit/L (04/13/2013 13:24:00) CK MB [0.5-3.6 ng/mL] 1.8 ng/mL (04/14/2013 12:13:00) 1.9 ng/mL (04/14/2013 04:15:00) 1.8 ng/mL (04/14/2013 00:05:00) CK MB Index [0.0-2.5] 1.3 (04/13/2013 13:24:00) Troponin-I [0.00-0.40 ng/mL] 0.05 ng/mL (04/14/2013 12:13:00) 0.05 ng/mL (04/14/2013 04:15:00) 0.04 ng/mL (04/14/2013 00:05:00) 1Result Comment: The eGFR is calculated using [...] be mul tiplied by the estimated BMI. 4Interpretive Data: Adult reference range values reflect the clinical guidelines of the [employer]. 5Interpretive Data: Adult reference range values reflect the clinical guidelines of the [employer]. 6Interpretive Data: Adult reference range values reflect the clinical guidelines of the [employer]. HEMATOLOGY Most recent to oldest [Reference Range]: 1 2 3 WBC [3.7-10.4 K/CMM] 6.0 K/CMM (04/15/2013 04:26:00) 8.6 K/CMM (04/13/2013 19:02:00) 10.1 K/CMM (04/13/2013 13:24:00) RBC [4.20-5.40 M/CMM] 3.88 M/CMM *LOW* (04/15/2013 04:26:00) 3.84 M/CMM *LOW* (04/13/2013 19:02:00) 4.09 M/CMM *LOW* (04/13/2013 13:24:00) Hgb [12.0-16.0 g/dL] 11.0 g/dL *LOW* (04/15/2013 04:26:00) 10.9 g/dL *LOW* (04/13/2013 19:02:00) 11.6 g/dL *LOW* (04/13/2013 13:24:00) Hct [36.0-48.0 %] 33.4 % *LOW* (04/15/2013 04:26:00) 32.7 % *LOW* (04/13/2013 19:02:00) 35.4 % *LOW* (04/13/2013 13:24:00) MCV [81.0-99.0 fL] 85.9 fL (04/15/2013 04:26:00) 85.2 fL (04/13/2013 19:02:00) 86.5 fL (04/13/2013:24:00) MCH [27.0-31.0 pg] 28.2 pg (04/15/2013 04:26:00) 28.6 pg (04/13/2013 19:02:00) 28.2 pg (04/13/2013:24:00) MCHC [32.0-36.0 g/dL] 32.8 g/dL (04/15/2013 04:26:00) 33.5 g/dL (04/13/2013 19:02:00) 32.6 g/dL (04/13/2013 13:24:00) RDW [11.5-14.5 %] 13.9 % (04/15/2013 04:26:00) 14.2 % (04/13/2013:02:00) 14.2 % (04/13/2013 13:24:00) Platelet [133-450 K/CMM] 163 K/CMM (04/15/2013 04:26:00) 188 K/CMM (04/13/2013 19:02:00) 207 K/CMM (04/13/2013:24:00) MPV [7.4-10.4 fL] 7.7 fL (04/15/2013 04:26:00) 7.2 fL *LOW* (04/13/2013:02:00) 7.8 fL (04/13/2013:24:00) Segs [45.0-75.0 %] 54.0 % (04/15/2013 04:26:00) 57.9 % (04/13/2013 19:02:00) 65.7 % (04/13/2013:24:00) Lymphocytes [20.0-40.0 %] 25.8 % (04/15/2013 04:26:00) 25.4 % (04/13/2013 19:02:00) 19.0 % *LOW* (04/13/2013 13:24:00) Monocytes [2.0-12.0 %] 10.3 % (04/15/2013 04:26:00) 8.3 % (04/13/2013 19:02:00) 7.5 % (04/13/2013 13:24:00) Eosinophils [0.0-4.0 %] 9.4 % *HI* (04/15/2013 04:26:00) 8.2 % *HI* (04/13/2013 19:02:00) 7.4 % *HI* (04/13/2013 13:24:00) Basophils [0.0-1.0 %] 0.5 % (04/15/2013 04:26:00) 0.2 % (04/13/2013 19:02:00) 0.4 % (04/13/2013 13:24:00) Segs-Bands # [1.5-8.1 K/CMM] 3.2 K/CMM (04/15/2013 04:26:00) 5.0 K/CMM (04/13/2013 19:02:00) 6.7 K/CMM (04/13/2013 13:24:00) Lymphocytes # [1.0-5.5 K/CMM] 1.5 K/CMM (04/15/2013 04:26:00) 2.2 K/CMM (04/13/2013 19:02:00) 1.9 K/CMM (04/13/2013 13:24:00) Monocytes # [0.0-0.8 K/CMM] 0.6 K/CMM (04/15/2013 04:26:00) 0.7 K/CMM (04/13/2013 19:02:00) 0.8 K/CMM (04/13/2013 13:24:00) Eosinophils # [0.0-0.5 K/CMM] 0.6 K/CMM *HI* (04/15/2013 04:26:00) 0.7 K/CMM *HI* (04/13/2013 19:02:00) 0.7 K/CMM *HI* (04/13/2013 13:24:00) Basophils # [0.0-0.2 K/CMM] 0.0 K/CMM (04/15/2013 04:26:00) 0.0 K/CMM (04/13/2013 19:02:00) 0.0 K/CMM (04/13/2013 13:24:00) PT [12.0-14.7 seconds] 13.8 seconds (04/13/2013 13:24:00) INR [0.85-1.17] 1.07 7 (04/13/2013 13:24:00) PTT [22.9-35.8 seconds] 32.5 seconds 8 (04/13/2013 13:24:00) 7Interpretive Data: RECOMMENDED RANGES FOR PROTIME INR: 2.0-3.0 for most medical and surgical thromboembolic states. 2.5-3.5 for artificial heart valves and recurrent embolism. INR SHOULD BE USED ONLY FOR PATIENTS ON STABLE ANTICOAGULANT THERAPY. 8Interpretive Data: Heparin Therapeutic Range: 57 - 92 Seconds IMMUNOLOGY Most recent to oldest [Reference Range]: 1 2 3 Quantiferon - TB Gold [NEGATIVE] POSITIVE 9 *ABN* (04/14/2013 15:45:00) NIL 0.21 IU/mL *NA* (04/14/2013 15:45:00) Mitogen - NIL >10.00 IU/mL *NA* (04/14/2013 15:45:00) TB - NIL >10.00 IU/mL 10 *NA* (04/14/2013 15:45:00) 9Result Comment: In healthy persons who have a low likelihood both of M. tuberculosis infection and of progression to active tuberculosis if infected, a single positive QFT result should not be taken as reliable evidence of M. tuberculosis infection. Repeat testing, with either the initial test or a different test, may be considered on a tcpu-qr-ywdm basis. 10Result Comment: The Nil tube value is [...] IU/mL. For additional information, please refer to http://education.[employer]/faq/QFT (This link is being provided for informational/ educational purposes only.) Test Performed at: [facility] [address] [address] SHEA YE M.D. Microbiology Reports PROCEDURE:Culture: Blood STATUS: Order in Progress BODY SITE: Left Hand COLLECTED DATE/TIME: 04/13/2013 17:35:00 SOURCE: Blood FREE TEXT SOURCE: PRELIMINARY REPORTS Preliminary Report No Growth; Holding Preliminary Report No Growth At 3 Days Preliminary Report No Growth At 2 Days Preliminary Report No Growth At 1 Day PROCEDURE:Culture: Blood STATUS: Order in Progress BODY SITE: Left Hand COLLECTED DATE/TIME: 04/13/2013 17:20:00 SOURCE: Blood FREE TEXT SOURCE: PRELIMINARY REPORTS Preliminary Report No Growth At 2 Days Preliminary Report No Growth; Holding Preliminary Report No Growth At 1 Day Preliminary Report No Growth At 3 Days
--- OUTSIDE RECORDS SUMMARY | 2018-05-02 16:34 | XMS REPORT | Summary of Care ---
Author Organization Unknown Address Unknown Phone Unavailable Encounter HQ Valentinr_christal(FIN) [id number] Date(s): 02/08/14 - 03/09/14 [facility] [address] [place], [place] [id number] [place] [address] Discharge Disposition: Home Physician Attending: Alonso Duran MD Reason for Visit PALPITATIONS Problem List Condition Effective Dates Status Health [...]
--- OUTSIDE RECORDS SUMMARY | 2018-05-02 16:34 | XMS REPORT | Summary of Care ---
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 [...] 1Result Comment: fluzone preservative free (>3 yrs.) [[id number]]. Migrated from OBS ; Data migrated from [...]
--- OUTSIDE RECORDS SUMMARY | 2018-05-02 16:34 | XMS REPORT | Summary of Care ---
Author Author [facility] Organization [facility] Address Unknown Phone Unavailable Encounter CRISTINA Bucio([place]) [id number] Date(s): 05/01/17 - 05/01/17 [facility] [address] [place] [address]- Discharge Disposition: Home or Self Care Attending Physician: Lynette Childress MD Vital Signs No data available for [...] HTN(Confirmed) Resolved HTN - Resolved Hypertension(Confirm ed) Yisfiniufaoyjlf83 02/07/14 Active Neck pain12 01/18/14 Active Koiseuhuxwfo22 Active Pleuritic pain14 04/26/13 Active Rib pain15, 16, 17 07/11/14 Active Severe Active protein-calorie malnutrition(Confirm ed) 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 [...] 1Result Comment: fluzone preservative free (>3 yrs.) [[id number]]. Migrated from OBS ; Data migrated from [...]
--- OUTSIDE RECORDS SUMMARY | 2018-05-02 16:34 | XMS REPORT | Summary of Care ---
Author Organization Unknown Address Unknown Phone Unavailable Encounter HQ Dell_christal([place]) [id number] Date(s): 07/12/14 - 07/12/14 [facility] [address] [place] [address]- Discharge Disposition: Home Physician Attending: Jesus Mckenzie MD Vital Signs No data [...] Immunizations No data available for this section Procedures No data available for this section Social History Social History Type Response Alcohol Current, Type Wine. Frequency: 1-2 times per year. 2 Drinks/Episode average. 3.00 Drinks/Episode maximum. Last use: 3 months ago. Previous treatment: None. Assessment and Plan No data available for this section
--- OUTSIDE RECORDS SUMMARY | 2018-05-02 16:35 | XMS REPORT | Summary of Care ---
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 [...] 1Result Comment: fluzone preservative free (>3 yrs.) [[id number]]. Migrated from OBS ; Data migrated from [...]
--- OUTSIDE RECORDS SUMMARY | 2018-05-02 16:35 | XMS REPORT | Summary of Care ---
Author Author [facility] Address Unknown Phone Unavailable Encounter CRISTINA Bucio(FIN) [id number] Date(s): 11/10/17 - 11/11/17 [place] [address] 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 [...] 1Result Comment: fluzone preservative free (>3 yrs.) [[id number]]. Migrated from OBS ; Data migrated from [...]
--- OUTSIDE RECORDS SUMMARY | 2018-05-02 16:35 | XMS REPORT | Summary of Care ---
Author Author [facility] Organization [facility] Address Unknown Phone Unavailable Encounter CRISTINA Bucio([place]) [id number] Date(s): 07/02/17 - 07/02/17 [facility] [address] [place] [address]- Encounter Diagnosis Calculus of gallbladder with chronic cholecystitis without obstruction (Final) - 07/17/17 Essential (primary) hypertension (Final) - Anemia, unspecified (Final) - Gastro-esophageal reflux disease without esophagitis (Final) - Other intermediate designer (current) drug therapy (Final) - Discharge Disposition: Home or Self Care Attending Physician: Geo Aranda MD Referring Physician: Geo Aranda MD Vital Signs 1 2 3 Most recent to oldest [Reference Range]: 149.86 cm (07/01/17 11:56 AM) Height 97.8 DegF (07/01/17 11:56 AM) Temperature Oral [96.4-99.1 DegF] 156/65 mmHg *HI* (07/02/17 4:00 PM) 144/67 mmHg *HI* (07/02/17 2:30 PM) 153/61 mmHg *HI* (07/02/17 2:00 PM) Blood Pressure [90-140/60-90 mmHg] 18 BRMIN (07/02/17 2:00 PM) 18 BRMIN (07/02/17 1:45 PM) 20 BRMIN (07/02/17 1:30 PM) Respiratory Rate [14-20 BRMIN] 97 bpm (07/02/17 3:30 PM) 87 bpm (07/02/17 3:00 PM) 88 bpm (07/02/17 2:30 PM) Peripheral Pulse Rate [60-100 bpm] 40.71 kg (07/01/17 11:56 AM) Weight 18.13 m2 (07/01/17 11:56 AM) Body Mass Index Problem List Condition Effective Dates Status Health Status Informant Benign essential 04/19/08 Active hypertension1 Blepharitis2 01/07/13 Active Blood chemistry 05/30/10 Active abnormal3 Disorder of skin4 01/07/13 Active Dyspnea5 01/18/14 Active Epigastric pain6 12/02/11 Active Gastroesophageal 08/23/13 Active reflux disease7 High blood Resolved pressure(Confirmed) Hip pain8, 9, 10 07/11/14 Active HTN(Confirmed) Resolved HTN(Confirmed) Resolved HTN - Resolved Hypertension(Confirm ed) Tubsvwwaackoajj45 02/07/14 Active Neck pain12 01/18/14 Active Wnqhuqoleqit36 Active Pleuritic pain14 04/26/13 Active Rib pain15, 16, 17 07/11/14 Active Severe Active protein-calorie malnutrition(Confirm ed) 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 [...] on 07/12/15. Originally documented as CODEINE. Medications albuterol-ipratropium 2.5-0.5 mg inhalation solution 3 mL, Route: NEB, Dosing Weight 40.71, kg, ONCE, STAT, Start date: 07/02/17 11:0 8:00 FITNESS AND WELLNESS MANAGER, Stop date: 07/02/17 11:08:00 FITNESS AND WELLNESS MANAGER Start Date: 07/02/17 Stop Date: 07/02/17 Status: Discontinued Ancef 2 gm, Route: IVPB, ONCE, Dosing Weight 40.71, kg, Start date: 07/01/17 11:57:00 FITNESS AND WELLNESS MANAGER, Stop date: 07/01/17 11:57:00 FITNESS AND WELLNESS MANAGER, Surgical Prophylaxis Only; For patients < 120 kg, ABX Indication: Surgical Prophylaxis Start Date: 07/01/17 Stop Date: 07/12/17 Status: Discontinued ANES albuterol 0.083% inhalation solution 2.49 mg, Route: NEB, Q20Min, Dosing Weight 40.71, kg, PRN Wheezing, Priority: ST AT, Start date: 07/02/17 13:02:00 FITNESS AND WELLNESS MANAGER, Duration: 30 day, Stop date: 08/01/17 14: 01:00 CDT Start Date: 07/02/17 Stop Date: 07/02/17 Status: Discontinued ANES diphenhydrAMINE 12.5 mg, Route: IVP, Drug form: INJ, Q6H, Dosing Weight 40.71, kg, PRN Itching, Start date: 07/02/17 13:02:00 FITNESS AND WELLNESS MANAGER, Duration: 30 day, Stop date: 08/01/17 13:01:0 0 CDT Start Date: 07/02/17 Stop Date: 07/02/17 Status: Discontinued ANES esmolol 10 mg, Route: IVP, Q5Min, Dosing Weight 40.71, kg, PRN Other -See Comment, Start date: 07/02/17 13:02:00 FITNESS AND WELLNESS MANAGER, Duration: 5 doses or times, Stop date: Limited # of times Start Date: 07/02/17 Stop Date: 07/02/17 Status: Discontinued ANES fentaNYL 25 microgram, Route: IVP, Q5Min, Dosing Weight 40.71, kg, PRN Pain Score 4-6, Pr iority: Routine, Start date: 07/02/17 13:02:00 FITNESS AND WELLNESS MANAGER, Duration: 4 doses or times, Stop date: Limited # of times Start Date: 07/02/17 Stop Date: 07/02/17 Status: Discontinued ANES fentaNYL 50 microgram, Route: IVP, Q5Min, Dosing Weight 40.71, kg, PRN Pain Score 7-10, P riority: Routine, Start date: 07/02/17 13:02:00 FITNESS AND WELLNESS MANAGER, Duration: 2 doses or times, Stop date: Limited # of times Start Date: 07/02/17 Stop Date: 07/02/17 Status: Discontinued ANES flumazenil 0.2 mg, Route: IVP, PRN, Dosing Weight 40.71, kg, PRN Benzodiazepine Reversal, I nitial dose, Start date: 07/02/17 13:02:00 FITNESS AND WELLNESS MANAGER, Duration: 30 day, Stop date: 14:01:00 CDT Start Date: 07/02/17 Stop Date: 07/02/17 Status: Discontinued ANES hydrALAZINE 10 mg, Route: IVP, Q20Min, Dosing Weight 40.71, kg, PRN Elevated BP, Start date: 07/02/17 13:02:00 FITNESS AND WELLNESS MANAGER, Duration: 2 doses or times, Stop date: Limited # of times Start Date: 07/02/17 Stop Date: 07/02/17 Status: Discontinued ANES labetalol 10 mg, Route: IVP, Q5Min, Dosing Weight 40.71, kg, PRN Elevated BP, Start date: 07/02/17 13:02:00 FITNESS AND WELLNESS MANAGER, Duration: 5 doses or times, Stop date: Limited # of times Start Date: 07/02/17 Stop Date: 07/02/17 Status: Discontinued ANES meperidine 12.5 mg, Route: IVP, Q30Min, Dosing Weight 40.71, kg, PRN Other -See Comment, Fo r shivering, Start date: 07/02/17 13:02:00 FITNESS AND WELLNESS MANAGER, Duration: 2 doses or times, Stop date: Limited # of times Start Date: 07/02/17 Stop Date: 07/02/17 Status: Discontinued ANES naloxone 0.4 mg, Route: IVP, Q2MIN, Dosing Weight 40.71, kg, PRN Narcotic Reversal, Start date: 07/02/17 13:02:00 FITNESS AND WELLNESS MANAGER, Duration: 8 doses or times, Stop date: Limited # of times Start Date: 07/02/17 Stop Date: 07/02/17 Status: Discontinued ANES ondansetron 4 mg, Route: IVP, ONCE, Dosing Weight 40.71, kg, PRN Nausea & Vomiting, Start date: 07/02/17 13:02:00 FITNESS AND WELLNESS MANAGER Start Date: 07/02/17 Stop Date: 07/02/17 Status: Completed ANES promethazine 6.25 mg, Route: IVPB, ONCE, Dosing Weight 40.71, kg, PRN Nausea & Vomiting, Start date: 07/02/17 13:02:00 FITNESS AND WELLNESS MANAGER Start Date: 07/02/17 Stop Date: 07/02/17 Status: Discontinued ceFAZolin (ANES) 1000 mg Route: IV, Drug form: INJ, Start date: 07/02/17 11:39:00 FITNESS AND WELLNESS MANAGER, Stop date: 8 12:39:00 FITNESS AND WELLNESS MANAGER Start Date: 07/02/17 Stop Date: 07/02/17 Status: Completed Colace 100 mg oral capsule 100 mg=1 cap, PO, BID, PRN Constipation, # 20 cap, 0 Refill(s) Start Date: 07/02/17 Status: Ordered DuoNeb inhalation solution 3 ml, Route: NEB, Drug Form: SOLN, Dosing Weight 40.71, kg, ONCE, PRN Respirator y Protocol, Start date: 07/02/17 15:31:00 FITNESS AND WELLNESS MANAGER Start Date: 07/02/17 Stop Date: 07/02/17 Status: Completed esmolol (ANES) Route: IV, Drug form: INJ, ONCE, Stop date: 07/02/17 12:40:00 FITNESS AND WELLNESS MANAGER Start Date: 07/02/17 Stop Date: 07/02/17 Status: Completed fentaNYL (ANES) Route: IV, Drug form: INJ, ONCE, Stop date: 07/02/17 12:35:00 FITNESS AND WELLNESS MANAGER Start Date: 07/02/17 Stop Date: 07/02/17 Status: Completed glycopyrrolate (ANES) Route: IV, Drug form: INJ, ONCE, Stop date: 07/02/17 12:52:00 FITNESS AND WELLNESS MANAGER Start Date: 07/02/17 Stop Date: 07/02/17 Status: Completed hydrALAZINE (ANES) Route: IV, Drug form: INJ, ONCE, Stop date: 07/02/17 12:52:00 FITNESS AND WELLNESS MANAGER Start Date: 07/02/17 Stop Date: 07/02/17 Status: Completed Lactated Ringers Injection IV (ANES) 1000 mL Route: IV, Total Volume: 1,000, Start date: 07/02/17 11:39:00 FITNESS AND WELLNESS MANAGER, Stop date: 12:39:00 FITNESS AND WELLNESS MANAGER Start Date: 07/02/17 Stop Date: 07/02/17 Status: Completed Lactated Ringers Injection IV 1000 mL 1,000 mL, Rate: 125 ml/hr, Infuse over: 8 hr, Route: IV, Dosing Weight 40.71 kg, Total Volume: 1,000, Start date: 07/02/17 13:02:00 FITNESS AND WELLNESS MANAGER, Duration: 30 day, Stop date: 08/01/17 13:01:00 CDT, 1.31, m2 Start Date: 07/02/17 Stop Date: 07/02/17 Status: Discontinued Lactated Ringers Injection IV 1000 mL 1,000 mL, Rate: 25 ml/hr, Infuse over: 40 hr, Route: IV, Dosing Weight 40.71 kg, Total Volume: 1,000, Start date: 07/02/17 11:08:00 FITNESS AND WELLNESS MANAGER, Duration: 30 day, Stop date: 08/01/17 11:07:00 CDT, 1.31, m2 Start Date: 07/02/17 Stop Date: 07/02/17 Status: Discontinued lidocaine (ANES) Route: IV, Drug form: INJ, ONCE, Stop date: 07/02/17 12:35:00 FITNESS AND WELLNESS MANAGER Start Date: 07/02/17 Stop Date: 07/02/17 Status: Completed neostigmine (ANES) Route: IV, Drug form: INJ, ONCE, Stop date: 07/02/17 12:52:00 FITNESS AND WELLNESS MANAGER Start Date: 07/02/17 Stop Date: 07/02/17 Status: Completed ondansetron (ANES) Route: IV, Drug form: INJ, ONCE, Stop date: 07/02/17 12:40:00 FITNESS AND WELLNESS MANAGER Start Date: 07/02/17 Stop Date: 07/02/17 Status: Completed oxyCODONE 5 mg oral tablet 5 mg, Route: PO, Drug form: TAB, ONCE, Dosing Weight 40.71, kg, PRN Pain Score 4 -6, Start date: 07/02/17 14:02:00 FITNESS AND WELLNESS MANAGER Start Date: 07/02/17 Stop Date: 07/02/17 Status: Completed propofol (ANES) Route: IV, Drug form: INJ, ONCE, Stop date: 07/02/17 12:35:00 FITNESS AND WELLNESS MANAGER Start Date: 07/02/17 Stop Date: 07/02/17 Status: Completed rocuronium (ANES) Route: IV, Drug form: INJ, ONCE, Stop date: 07/02/17 12:35:00 FITNESS AND WELLNESS MANAGER Start Date: 07/02/17 Stop Date: 07/02/17 Status: Completed tramadol 50 mg oral tablet 50 mg=1 tab, PO, Q6H, PRN Pain, X 10 day, # 40 tab, 0 Refill(s) Start Date: 07/02/17 Stop Date: 07/12/17 Status: Completed Vitamin D3 1000 intl units oral tablet 1,000 IntlUnit=1 tab, PO, Daily, # 30 tab, 0 Refill(s) Start Date: 07/01/17 Status: Ordered Results ELECTROLYTES Most recent to 1 oldest [Reference Range]: Sodium Lvl [135-145 135 mEq/L mEq/L] (07/01/17 12:14 PM) Potassium Lvl 5.3 mEq/L [3.5-5.1 mEq/L] *HI* (07/01/17 12:14 PM) Chloride Lvl [95-109 101 mEq/L mEq/L] (07/01/17 12:14 PM) CO2 [24-32 mEq/L] 31 mEq/L (07/01/17 12:14 PM) AGAP [10.0-20.0 8.3 mEq/L mEq/L] *LOW* (07/01/17 12:14 PM) CHEM PANEL Most recent to 1 oldest [Reference Range]: Creatinine Lvl 0.72 mg/dL [0.50-1.40 mg/dL] (07/01/17 12:14 PM) eGFR 77 mL/min/1.73m2 1 *NA* (07/01/17 12:14 PM) BUN [7-22 mg/dL] 12 mg/dL (07/01/17 12:14 PM) B/C Ratio [6-25] 17 (07/01/17 12:14 PM) Glucose Lvl [70-99 101 mg/dL mg/dL] *HI* (07/01/17 12:14 PM) Total Protein 7.7 g/dL [6.4-8.4 g/dL] (07/01/17 12:14 PM) Albumin Lvl [3.5-5.0 3.5 g/dL g/dL] (07/01/17 12:14 PM) Globulin [2.7-4.2 4.2 g/dL g/dL] (07/01/17 12:14 PM) A/G Ratio [0.7-1.6] 0.8 (07/01/17 12:14 PM) Calcium Lvl 9.9 mg/dL [8.5-10.5 mg/dL] (07/01/17 12:14 PM) ALT [0-65 unit/L] 17 unit/L (07/01/17 12:14 PM) AST [0-37 unit/L] 19 unit/L (07/01/17 12:14 PM) Alk Phos [39-136 64 unit/L unit/L] (07/01/17 12:14 PM) Bili Total [0.2-1.3 0.4 mg/dL mg/dL] (07/01/17 12:14 PM) 1Result Comment: The eGFR is calculated using [...] be mul tiplied by the estimated BMI. HEMATOLOGY Most recent to 1 oldest [Reference Range]: WBC [3.7-10.4 K/CMM] 8.8 K/CMM (07/01/17 12:14 PM) RBC [4.20-5.40 4.05 M/CMM M/CMM] *LOW* (07/01/17 12:14 PM) Hgb [12.0-16.0 g/dL] 11.5 g/dL *LOW* (07/01/17 12:14 PM) Hct [36.0-48.0 %] 34.1 % *LOW* (07/01/17 12:14 PM) MCV [80.0-98.0 fL] 84.3 fL (07/01/17 12:14 PM) MCH [27.0-31.0 pg] 28.3 pg (07/01/17 12:14 PM) MCHC [32.0-36.0 33.6 g/dL g/dL] (07/01/17 12:14 PM) RDW [11.5-14.5 %] 15.5 % *HI* (07/01/17 12:14 PM) MPV [7.4-10.4 fL] 7.0 fL *LOW* (07/01/17 12:14 PM) Platelet [133-450 207 K/CMM K/CMM] (07/01/17 12:14 PM) Segs [45.0-75.0 %] 68.0 % (07/01/17 12:14 PM) Lymphocytes 19.0 % [20.0-40.0 %] *LOW* (07/01/17 12:14 PM) Monocytes [2.0-12.0 9.4 % %] (07/01/17 12:14 PM) Eosinophils [0.0-4.0 3.1 % %] (07/01/17 12:14 PM) Basophils [0.0-1.0 0.5 % %] (07/01/17 12:14 PM) Segs-Bands # 6.0 K/CMM [1.5-8.1 K/CMM] (07/01/17 12:14 PM) Lymphocytes # 1.7 K/CMM [1.0-5.5 K/CMM] (07/01/17 12:14 PM) Monocytes # [0.0-0.8 0.8 K/CMM K/CMM] (07/01/17 12:14 PM) Eosinophils # 0.3 K/CMM [0.0-0.5 K/CMM] (07/01/17 12:14 PM) Immunizations Given and Recorded Vaccine Date Status Refusal Reason influenza virus vaccine, inactivated1 03/17/13 Given 1Result Comment: fluzone preservative free (>3 yrs.) [[id number]]. Migrated from [employer] ; Data migrated from [employer] on 06/12/2015. Procedures Procedure Date Related Diagnosis [...] No entered on: 07/10/17 Assessment and Plan Extracted from: Title: Clinical Document Author: Geo Aranda MD Date: 07/02/17 DATE OF PROCEDURE: 05/01/2018. PREOPERATIVE DIAGNOSIS: Symptomatic gallstones. POSTOPERATIVE DIAGNOSIS: Symptomatic gallstones. TECHNICAL PROCEDURE PERFORMED: Laparoscopic cholecystectomy. SURGEON: Geo Aranda M.D. ANESTHESIA: General endotracheal. SURGICAL WOUND CLASSIFICATION: Clean contaminate. OPERATIVE TIME: 30 minutes. ESTIMATED BLOOD LOSS: Minimal. FLUID REPLACEMENT: Per anesthesia. SPECIMENS SENT FOR PATHOLOGY: Gallbladder. COMPLICATIONS: None. FINDINGS: Well-visualized critical view. CONDITION: To recovery, stable. POSTOPERATIVE PLAN: To the floor INDICATIONS: A 86-year-old lady that presented to my general surgery clinic with abdominal pain. At this time, the history and physical as well as laboratory studies was consistent with diagnosis of symptomatic gallstone, therefore, the option of laparoscopic versus open cholecystectomy was offered to the patient. Risks and benefits of the procedure were explained and the patient voiced understanding and consented to procedure. OPERATIVE NARRATIVE: Patient was taken the operating room, placed on the operating table, intubated by anesthesia. The abdomen was prepped and draped in the usual sterile fashion. A timeout was called and the correct patient, as well as procedure was verified. The patient had SCDs on for thromboembolic prophylaxis and received antibiotics within 1 hour of the incision. Umbilical region was identified, 0.5% Marcaine was infused followed 1-cm incision followed by dissection of the fascia. The fascia was grasped with a Rayray clamp and a Veress was placed, confirmed with a positive saline drop test. Pneumoperitoneum was achieved with CO2 gas up to 15 mmHg. A 1-cm trocar was placed in the umbilical incision. The patient was placed in reverse Trendelenburg position airplaned to the left; 0.5 cm trocars were introduced in the epigastrium, right upper quadrant right periumbilical regions under direct visualization. The gallbladder was identified. It was grasped at the fundus and retracted to the head, infundibulum was identified, grasped and retracted towards the legs, exposing the triangle of Calot. The cystic duct was identified, it was dissected out from all surrounding structures, clipped proximally 3 times, distally once, transected in between. Of note, a well visualized critical view was identified; therefore we bypassed cholangiogram. The dissection continued to identify the cystic artery, it was dissected out from all surrounding structures, clipped proximally twice, distally once, and transected in between. The gallbladder was then elevated off the liver bed using electrocautery. It was placed in the Endopouch bag and removed from the abdomen through the umbilical port. The liver bed was inspected, all residual bleeding was identified and controlled. The abdomen was irrigated with copious amounts water until clear return was achieved. The patient was placed flat and all residual irrigation was suctioned out. The pneumoperitoneum was deco mpressed and the fascia at the umbilical port was closed using 0 Vicryl in a [id number]-[id number] manner, and the skin was closed using 4-0 Monocryl in running subcuticular manner. The skin and three 5-mm ports were closed using 4-0 Monocryl in simple U-stitch manner. The patient was extubated in the operating room and transferred to recovery in stable condition. All instrument and laparotomy counts were correct. Extracted from: Title: Clinical Document Author: Geo Aranda MD Date: 07/02/17 SURGICAL HISTORY AND PHYSICAL Attending: Geo Aranda MDPhone: Service: Plastic Surgery Service Code status: None Specified=FULL CODE Reason for Admission: UNK . Working DRG: None Documented Isolation: None Documented Consulting Physicians: (none on file) CHIEF COMPLAINT: Gallstones HISTORY OF PRESENT ILLNESS: 86-year-old lady with abdominal pain located in the epigastrium right upper quadrant bandlike sensation across the abdomen found to have gallstones here for elective cholecystectomy. Currently, no pain, no fevers chills. She has been seen by saw man and cleared. She also complained of weight loss, however continues to follow with her syrup maker. Her colonoscopy is up-to-date and recent CT of abdomen pelvis did not reveal any obvious malignant process. PAST MEDICAL HISTORY: 1. Hypertension. 2. Reflux. PAST SURGICAL HISTORY: None recent. MEDS: Please refer to the medication reconciliation form. Allergies: HYDROcodone, codeine SOCIAL HISTORY: Denies smoking, drinks occasionally, denies illicit drugs. FAMILY HISTORY: Noncontributory RVIEW OF SYSTEMS: Other than what was mentioned in the HPI, complete review of systems were performed and are negative. VitalsTmp(F)[id number] 07/02 11:[id number]--- 07/01 11:[id number]--- 24 Hr Tmax: 97.8F (36.56c) at 07/01 11:56Vital Signs are the last 5 in the past 48 hours. General Appearance: Well appearing, well developed, well nourished, well hydrated, good color, and in no acute distress Head: Normocephalic atraumatic Eyes: Pupils equal/round/reactive to light, no scleral icterus, extraocular movements intact Ears: Normal external shape, normal position Nose: Nares patent and no discharge Neck: Supple, FROM Chest Wall: No retractions, No deformities Lungs: CTA bilaterally, and good air entry Heart: Regular rate and regular rhythm Abdomen: soft, non-tender, non-distended, no HSM, and no mass Musculoskeletal: No obvious deformity. Moves all 4 extremities, stable gait. Extremities: Symmetric, no obvious defect, and no cyanosis/clubbing/edema. 2+ pulses bilaterally. Neurologic: Alert/appropriate. CN II-XII grossly intact. Clear speech, aao x 3. Psych: Mood congruent affect, responds appropriately to questions. Labs (Last four charted values) WBC 8.8(JUL 01) Hgb L 11.5(JUL 01) Hct L 34.1(JUL 01) Plt 207(JUL 01) Na 135(JUL 01) K H 5.3(JUL 01) CO2 31(JUL 01) Cl 101(JUL 01) Cr 0.72(JUL 01) BUN 12(JUL 01) Glucose Random H 101(JUL 01) Ca 9.9(JUL 01) Alk Phos: 64 unit/L (07/01/17 12:41:38) A/G Ratio: 0.8 (07/01/17 12:41:38) ALT: 17 unit/L (07/01/17 12:41:38) Albumin Lvl: 3.5 g/dL (07/01/17 12:41:38) Bili Total: 0.4 mg/dL (07/01/17 12:41:38) Total Protein: 7.7 g/dL (07/01/17 12:41:38) Globulin: 4.2 g/dL (07/01/17 12:41:38) No qualifying data available. DIAGNOSTIC: Ultrasound reviewed, gallstones noted. ASSESSMENT: 86-year-old lady with: 1. Gallstones, symptomatic. 2. Hypertension. PLAN: 1. Plan for elective cholecystectomy today. 2. Risks and benefits discussed and she understands. 3. Perioperative antibiotics. 4. DVT prophylaxis.
--- OUTSIDE RECORDS SUMMARY | 2018-05-02 16:35 | XMS REPORT | Summary of Care ---
Author Author [facility] Primary [facility] Address Unknown Phone Unavailable Encounter CRISTINA Bucio(FIN) [id number] Date(s): 06/10/17 - 06/11/17 [place] [id number] [facility] [address] [place] [address]- [phone] Vital Signs No data available for this [...] HTN(Confirmed) Resolved HTN - Resolved Hypertension(Confirm ed) [id number] 02/07/14 Active Neck pain12 01/18/14 Active Ykewnswxnhck74 Active Pleuritic pain14 04/26/13 Active Rib pain15, 16, 17 07/11/14 Active Severe Active protein-calorie malnutrition(Confirm ed) 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 [...] 1Result Comment: fluzone preservative free (>3 yrs.) [[id number]]. Migrated from OBS ; Data migrated from [...]
--- OUTSIDE RECORDS SUMMARY | 2018-05-02 16:35 | XMS REPORT | Summary of Care ---
Author Author [facility] Address Unknown Phone Unavailable Encounter CRISTINA Bucio(FIN) [id number] Date(s): 08/08/17 - 08/09/17 [place] [address] [facility] [address] [place] [address]- [phone] Vital Signs No data available for this [...] HTN(Confirmed) Resolved HTN - Resolved Hypertension(Confirm ed) [id number] 02/07/14 Active Neck pain12 01/18/14 Active Sltasiunhaly94 Active Pleuritic pain14 04/26/13 Active Rib pain15, 16, 17 07/11/14 Active Severe Active protein-calorie malnutrition(Confirm ed) Varicose veins of 12/02/11 Active lower gwipggwkj88 1Data migrated from [employer] on 10/11/14. [...] on 07/12/15. Originally documented as CODEINE. Medications Cartia XT 240 mg/24 hours oral capsule, extended release See Instructions, # 90 unknown unit, TAKE ONE CAPSULE BY MOUTH DAILY FOR BLOOD P [facility] Pharmacy: [place] [id number] Start Date: 08/08/17 Status: Ordered Results No data available for this section Immunizations Given and Recorded Vaccine Date Status Refusal Reason influenza virus vaccine, inactivated1 03/17/13 Given 1Result Comment: fluzone preservative free (>3 yrs.) [[id number]]. Migrated from OBS ; Data migrated from [...]
--- OUTSIDE RECORDS SUMMARY | 2018-05-02 16:35 | XMS REPORT | Summary of Care ---
Author Author [facility] General Surgery [facility] Organization [facility] General Surgery [facility] Address Unknown Phone Unavailable Encounter [facility] Fortunato(FIN) [id number] Date(s): 07/10/17 - 07/10/17 [facility] General Surgery [facility] [address] [place] [address]- [phone] Discharge Disposition: Home or Self Care Attending Physician: Geo Aranda MD Vital Signs Most recent to 1 oldest [Reference Range]: Height 149.86 cm (07/10/17 2:31 PM) Temperature Oral 97.5 DegF [96.4-99.1 DegF] (07/10/17 2:31 PM) Blood Pressure 148/81 mmHg [90-140/60-90 mmHg] *HI* (07/10/17 2:31 PM) Peripheral Pulse 71 bpm Rate [60-100 bpm] (07/10/17 2:31 PM) Weight 40.142 kg (07/10/17 2:31 PM) Body Mass Index 17.87 m2 (07/10/17 2:31 PM) Problem List Condition Effective Dates Status Health Status Informant Benign essential 04/19/08 Active hypertension1 Blepharitis2 01/07/13 Active Blood chemistry 05/30/10 Active abnormal3 Disorder of skin4 01/07/13 Active Dyspnea5 01/18/14 Active Epigastric pain6 12/02/11 Active Gastroesophageal 08/23/13 Active reflux disease7 High blood Resolved pressure(Confirmed) Hip pain8, 9, 10 07/11/14 Active HTN(Confirmed) Resolved HTN(Confirmed) Resolved HTN - Resolved Hypertension(Confirm ed) Seypobwsvlrfqzf48 02/07/14 Active Neck pain12 01/18/14 Active Dxfpmjepcmqb52 Active Pleuritic pain14 04/26/13 Active Rib pain15, 16, 17 07/11/14 Active Severe Active protein-calorie malnutrition(Confirm ed) Varicose veins of 7/23/12 Active lower sdegfwpwf46 1Data migrated from [employer] on 10/11/14. [...] 07/12/15. Originally documented as CODEINE. Medications No Known Medications Results No data available for this section Immunizations Given and Recorded Vaccine Date Status Refusal Reason influenza virus vaccine, inactivated1 03/17/13 Given 1Result Comment: fluzone preservative free (>3 yrs.) [[id number]]. Migrated from OBS ; Data migrated from [...]
[2018-05-02] MEDS ORDERED: CLONIDINE HCL 0.1 MG TAB PO ONE (17:00)
--- NOTE | 2018-05-02 17:09 | NUR ---
ASKING MD TO DO A 'COMPLETE PHYSICAL SO WE CAN FIND OUT WHY SHE'S LOSING WEIGHT.' EXPLAINED ER AND CAN DO BASIC WORK UP TO EVAL PT AND WILL RE-EVAL AFTER RULTS IN.
== END 2018-05-02 18:34 | disposition home or self-care (01) ==
LOC: FSED 16:30
DX: I10 Essential (primary) hypertension (principal); Z88.5 Allergy status to narcotic agent
CPT/HCPCS: 80048; 99284

== ENCOUNTER 2020-10-07 18:49 | Emergency (ER) | payer MEDICARE ==
[~2020-10-07] VITALS: Ht 149.9 cm; Wt 40.8 kg
[2020-10-07] MEDS ORDERED: CEFTRIAXONE SOD 1 GM VIAL IV STA (19:50)
[2020-10-07] MEDS ORDERED: CEFTRIAXONE SOD 1 GM in SODIUM CHLORIDE 0.9% 50ML 50 ML IV STA (19:54)
[2020-10-07] MEDS ORDERED: AZITHROMYCIN 500MG/NS 250 ML 250 ML IV ONE (20:00)
[2020-10-07] MEDS ORDERED: SODIUM CHLORIDE 0.9% 250ML 250 ML ONE (20:08)
[2020-10-07] MEDS ORDERED: CEFTRIAXONE SOD 1 GM VIAL ONE (20:08)
[2020-10-07] MEDS ORDERED: AZITHROMYCIN 500MG/NS 250 ML 250 ML ONE (20:08)
[2020-10-07] MEDS ORDERED: DOXYCYCLINE HY100 MG PO (20:21)
== END 2020-10-07 21:24 | disposition home or self-care (01) ==
LOC: FSED 19:12
DX: R05 Cough (principal); R06.02 Shortness of breath; J18.9 Pneumonia, unspecified organism; I10 Essential (primary) hypertension
CPT/HCPCS: 71046; 80048; 80076; 82553; 83880; 84484; 85025; 87040; 93005; 99283; J0456; J0696; J7050

== ENCOUNTER 2021-05-16 09:55 | Inpatient (IN) | payer MEDICARE ==
[~2021-05-16] VITALS: Ht 149.9 cm; Wt 39.9 kg
[~2021-05-16 09:55] MED LIST: DOXYCYCLINE HY100 MG PO
[2021-05-16] MEDS ORDERED: LACTATED RINGER'S 500 ML IV ONE (11:15)
[2021-05-16] MEDS ORDERED: SODIUM CHLORIDE 0.9% 1000ML 1,000 ML IV SCH (11:15)
[2021-05-16 11:31] LABS: BASOPHILS # (AUTO) 0.1 (0.0-0.1); BASOPHILS % 0.3 % (0.0-1.0); HEMATOCRIT 36.8 % (34.2-44.1); HEMOGLOBIN 12.1 g/dL (12.0-16.0); LYMPHOCYTES # (AUTO) 0.7 (1.0-3.2); LYMPHOCYTES % 2.9 % (18.0-39.1); MEAN CORPUSCULAR HEMOGLOBIN 28.1 pg (28-32); MEAN CORPUSCULAR HGB CONC 32.9 g/dL (31-35); MEAN CORPUSCULAR VOLUME 85.4 fL (81-99); MONOCYTES # (AUTO) 1.1 (0.2-0.8); MONOCYTES % 4.6 % (4.4-11.3); NEUTROPHILS # (AUTO) 21.2 (2.1-6.9); NEUTROPHILS % 91.4 % (38.7-80.0); PLATELET COUNT 247 x10e3/uL (140-360); RED BLOOD COUNT 4.31 x10e6/uL (3.6-5.1)
[2021-05-16] MEDS ORDERED: IBUPROFEN 600 MG TAB ONE (11:47)
[2021-05-16 11:48] LABS: ALBUMIN 3.1 g/dL (3.5-5.0); ALBUMIN/GLOBULIN RATIO 0.6 (0.8-2.0); ANION GAP 14.5 mmol/L (8-16); CALCIUM 10.1 mg/dL (8.4-10.2); CREATININE, SERUM 0.8 mg/dL (0.57-1.11); POTASSIUM 4.5 mmol/L (3.5-5.1)
[2021-05-16] MEDS ORDERED: ACETAMINOPHEN 325 MG TAB ONE (11:48)
[2021-05-16] MEDS ORDERED: LACTATED RINGER'S 1,000 ML ONE (11:48)
[2021-05-16] MEDS ORDERED: CEFTRIAXONE 1 GM VIAL ONE (11:50)
[2021-05-16] MEDS ORDERED: SODIUM CHLORIDE 0.9% 250ML 250 ML ONE (11:50)
[2021-05-16] MEDS ORDERED: CEFTRIAXONE 1 GM in SODIUM CHLORIDE 0.9% 50ML 50 ML IV ONE (12:00)
[2021-05-16] MEDS ORDERED: ACETAMINOPHEN 325 MG TAB PO ONE (12:00)
[2021-05-16] MEDS ORDERED: IOPAMIDOL 370 MG/ML 200 ML INFUS..BTL INJ ONE (12:03)
[2021-05-16] MEDS ORDERED: SODIUM CHLORIDE 0.9% 50ML 50 ML ONE (12:03)
[2021-05-16] MEDS ORDERED: IBUPROFEN 600 MG TAB PO ONE (13:00)
[2021-05-16] MEDS ORDERED: IBUPROFEN 400 MG TAB PO PRN (14:00)
[2021-05-16] MEDS: SODIUM CHLORIDE 0.9% 1000ML 1,000 ML IV SCH (23:40)
[2021-05-17] VITALS (8 sets, daily range): BP systolic 111–158; BP diastolic 59–72
[2021-05-17] MEDS: ACETAMINOPHEN 325 MG TAB PO PRN ×2 (00:15→23:16)
[2021-05-17] MEDS: SODIUM CHLORIDE 0.9% 1000ML 1,000 ML IV SCH ×2 (02:50→18:28)
[2021-05-17 07:34] LABS: BASOPHILS % 0.4 % (0.0-1.0); EOSINOPHILS # (AUTO) 0.1 (0.0-0.4); EOSINOPHILS % 1.1 % (0.0-6.0); HEMATOCRIT 32.5 % (34.2-44.1); HEMOGLOBIN 9.9 g/dL (12.0-16.0); MEAN CORPUSCULAR HGB CONC 30.5 g/dL (31-35); MEAN CORPUSCULAR VOLUME 92.1 fL (81-99); MONOCYTES # (AUTO) 0.6 (0.2-0.8); MONOCYTES % 5.6 % (4.4-11.3); NEUTROPHILS # (AUTO) 9.4 (2.1-6.9); NEUTROPHILS % 82.9 % (38.7-80.0); PLATELET COUNT 203 x10e3/uL (140-360); RED BLOOD COUNT 3.53 x10e6/uL (3.6-5.1); RED CELL DISTRIBUTION WIDTH 15.6 % (11.7-14.4)
[2021-05-17 07:37] LABS: ANION GAP 14.9 mmol/L (8-16); CALCIUM 8.7 mg/dL (8.4-10.2); CREATININE, SERUM 0.68 mg/dL (0.57-1.11); POTASSIUM 3.9 mmol/L (3.5-5.1)
[2021-05-17 07:53] LABS: CREATINE KINASE 18 IU/L (29-168)
[2021-05-17 10:39] LABS: BASOPHILS # (AUTO) 0.1 (0.0-0.1); BASOPHILS % 0.4 % (0.0-1.0); EOSINOPHILS # (AUTO) 0.1 (0.0-0.4); EOSINOPHILS % 0.5 % (0.0-6.0); HEMATOCRIT 36.3 % (34.2-44.1); HEMOGLOBIN 11.5 g/dL (12.0-16.0); LYMPHOCYTES # (AUTO) 1.2 (1.0-3.2); LYMPHOCYTES % 7.1 % (18.0-39.1); MEAN CORPUSCULAR HEMOGLOBIN 27.8 pg (28-32); MEAN CORPUSCULAR HGB CONC 31.7 g/dL (31-35); MEAN CORPUSCULAR VOLUME 87.7 fL (81-99); MONOCYTES # (AUTO) 0.8 (0.2-0.8); NEUTROPHILS # (AUTO) 14.4 (2.1-6.9); NEUTROPHILS % 85.9 % (38.7-80.0); PLATELET COUNT 283 x10e3/uL (140-360); RED BLOOD COUNT 4.14 x10e6/uL (3.6-5.1); RED CELL DISTRIBUTION WIDTH 15.4 % (11.7-14.4)
[2021-05-17] MEDS: CEFTRIAXONE 1 GM in SODIUM CHLORIDE 0.9% 50ML 50 ML IV SCH (10:58)
[2021-05-17 11:03] LABS: ALBUMIN 2.8 g/dL (3.5-5.0); ALBUMIN/GLOBULIN RATIO 0.6 (0.8-2.0); ANION GAP 15.6 mmol/L (8-16); CALCIUM 9.3 mg/dL (8.4-10.2); CREATININE, SERUM 0.7 mg/dL (0.57-1.11); POTASSIUM 3.6 mmol/L (3.5-5.1)
[2021-05-17] MEDS ORDERED: CLONIDINE HCL 0.1 MG/24 HR 1 EA PATCH TOP SCH (12:30)
[2021-05-17 14:58] LABS: CREATINE KINASE MB 1.7 ng/mL (0-5.0)
[2021-05-17] MEDS: Clindamycin INJ 600 MG 600 MG in SODIUM CHLORIDE 0.9% 50ML 50 ML IV SCH (23:16)
[2021-05-18] VITALS (8 sets, daily range): BP systolic 118–163; BP diastolic 66–85
[2021-05-18] MEDS: SODIUM CHLORIDE 0.9% 1000ML 1,000 ML IV SCH ×2 (05:10→21:22)
[2021-05-18] MEDS: Clindamycin INJ 600 MG 600 MG in SODIUM CHLORIDE 0.9% 50ML 50 ML IV SCH ×3 (06:14→23:08)
[2021-05-18 06:31] LABS: BASOPHILS % 0.2 % (0.0-1.0); EOSINOPHILS # (AUTO) 0.1 (0.0-0.4); EOSINOPHILS % 1.7 % (0.0-6.0); HEMATOCRIT 30.3 % (34.2-44.1); LYMPHOCYTES # (AUTO) 1.1 (1.0-3.2); LYMPHOCYTES % 12.5 % (18.0-39.1); MEAN CORPUSCULAR HGB CONC 32.7 g/dL (31-35); MEAN CORPUSCULAR VOLUME 85.8 fL (81-99); MONOCYTES # (AUTO) 0.9 (0.2-0.8); MONOCYTES % 10.7 % (4.4-11.3); NEUTROPHILS # (AUTO) 6.2 (2.1-6.9); NEUTROPHILS % 73.5 % (38.7-80.0); PLATELET COUNT 224 x10e3/uL (140-360); RED BLOOD COUNT 3.53 x10e6/uL (3.6-5.1); RED CELL DISTRIBUTION WIDTH 14.9 % (11.7-14.4)
[2021-05-18 06:44] LABS: HEMOGLOBIN 9.9 g/dL (12.0-16.0)
[2021-05-18 06:48] LABS: ANION GAP 11.4 mmol/L (8-16); CALCIUM 8.5 mg/dL (8.4-10.2); CREATININE, SERUM 0.65 mg/dL (0.57-1.11); POTASSIUM 3.4 mmol/L (3.5-5.1)
[2021-05-18] MEDS ORDERED: SODIUM CHLORIDE 0.9% 50ML 50 ML ONE (11:27)
[2021-05-18] MEDS ORDERED: IOPAMIDOL 370 MG/ML 200 ML INFUS..BTL INJ ONE (11:27)
[2021-05-18] MEDS: CEFTRIAXONE 1 GM in SODIUM CHLORIDE 0.9% 50ML 50 ML IV SCH (13:22)
[2021-05-18] MEDS ORDERED: IPRATROPIUM BROMIDE 0.02% 2.5 ML NEB NEB SCH (23:00)
[2021-05-19] VITALS (8 sets, daily range): BP systolic 156–176; BP diastolic 63–72
[2021-05-19] MEDS: ACETAMINOPHEN 325 MG TAB PO PRN (05:21)
[2021-05-19] MEDS: Clindamycin INJ 600 MG 600 MG in SODIUM CHLORIDE 0.9% 50ML 50 ML IV SCH ×3 (06:44→23:21)
[2021-05-19] MEDS: SODIUM CHLORIDE 0.9% 1000ML 1,000 ML IV SCH (08:40)
[2021-05-19] MEDS: CEFTRIAXONE 1 GM in SODIUM CHLORIDE 0.9% 50ML 50 ML IV SCH (10:58)
[2021-05-19] MEDS: CHOLESTYRAMINE 4 GM PACKET PO SCH (10:58)
[2021-05-19] MEDS: LACTOBACILLUS ACIDOPHILUS CAPSULE PO SCH (10:58)
[2021-05-19] MEDS ORDERED: HYDRALAZINE HCL 20 MG/ML VIAL IV PRN (13:15)
[2021-05-19] MEDS ORDERED: CELEBREX200 MG PO (14:02)
[2021-05-19] MEDS ORDERED: DILTIAZEM 24HR240 MG PO (14:02)
[2021-05-19] MEDS ORDERED: LISINOPRIL10 MG PO (14:02)
[2021-05-19] MEDS ORDERED: METHOCARBAMOL750 MG PO (14:02)
[2021-05-19] MEDS ORDERED: BENZONATATE100 MG PO (14:02)
[2021-05-19] MEDS ORDERED: PANTOPRAZOLE SO40 MG PO (14:02)
[2021-05-19] MEDS ORDERED: ZITHROMAX250 MG PO (14:02)
[2021-05-19] MEDS ORDERED: SYMBICORT 16010.2 GM INH (17:02)
[2021-05-19] MEDS ORDERED: Combivent Respimat PO (17:02)
[2021-05-19] MEDS ORDERED: METHOCARBAMOL 500 MG TAB PO PRN (17:30)
[2021-05-19] MEDS ORDERED: IPRATROPIUM/ALBUTEROL SULFATE 4 GM INH INH PRN (17:30)
[2021-05-19] MEDS ORDERED: BUDESONIDE/FORMOTEROL 160/4.5MCG INHALER INH PRN (17:30)
[2021-05-19] MEDS: DILTIAZEM HCL ER 120 MG CAP PO SCH (17:58)
[2021-05-19] MEDS: BENZONATATE 100 MG CAP PO PRN (23:22)
[2021-05-20] VITALS (7 sets, daily range): BP systolic 145–155; BP diastolic 53–65
[2021-05-20] MEDS: SODIUM CHLORIDE 0.9% 1000ML 1,000 ML IV SCH (05:15)
[2021-05-20] MEDS: Clindamycin INJ 600 MG 600 MG in SODIUM CHLORIDE 0.9% 50ML 50 ML IV SCH ×2 (06:28→15:00)
[2021-05-20] MEDS: DILTIAZEM HCL ER 120 MG CAP PO SCH (08:36)
[2021-05-20] MEDS: CHOLESTYRAMINE 4 GM PACKET PO SCH (08:38)
[2021-05-20] MEDS: LACTOBACILLUS ACIDOPHILUS CAPSULE PO SCH (08:39)
[2021-05-20] MEDS ORDERED: PANTOPRAZOLE SOD 40 MG TABEC PO SCH (09:00)
[2021-05-20] MEDS ORDERED: CELECOXIB 200 MG CAP PO SCH (09:00)
[2021-05-20] MEDS ORDERED: LISINOPRIL 10 MG TAB PO SCH (09:00)
[2021-05-20] MEDS: CEFTRIAXONE 1 GM in SODIUM CHLORIDE 0.9% 50ML 50 ML IV SCH (10:18)
[2021-05-20 10:33] LABS: ANION GAP 14.8 mmol/L (8-16); BLOOD UREA NITROGEN < 5 mg/dL (7-26); CARBON DIOXIDE 20 mmol/L (22-29); CHLORIDE 98 mmol/L (98-107); CREATININE, SERUM 0.59 mg/dL (0.57-1.11); EST GLOMERULAR FILTRATION RATE 96 ML/MIN (60-); GLUCOSE 117 mg/dL (74-118); SODIUM 130 mmol/L (136-145)
[2021-05-20 10:34] LABS: BUN/CREATININE RATIO 8 (6-25); POTASSIUM 2.8 mmol/L (3.5-5.1)
[2021-05-20] MEDS ORDERED: CLEOCIN HCL300 MG PO (10:43)
[2021-05-20] MEDS ORDERED: POTASSIUM CHLORIDE 20MEQ/100ML 200 ML IV ONE (10:45)
[2021-05-20] MEDS: BENZONATATE 100 MG CAP PO PRN (11:03)
== END 2021-05-20 18:55 | disposition home or self-care (01) | DRG 195 ==
LOC: FSED 10:11 → ERHOLD 13:59 → MED/SURG2 21:03
PROVIDERS: ADMIT Family Medicine; ATTEND Family Medicine
DX: J18.9 Pneumonia, unspecified organism (principal); I10 Essential (primary) hypertension; K21.9 Gastro-esophageal reflux disease without esophagitis; R59.0 Localized enlarged lymph nodes; K11.20 Sialoadenitis, unspecified; R91.1 Solitary pulmonary nodule; Z20.822 Contact with and (suspected) exposure to COVID-19; E78.5 Hyperlipidemia, unspecified
CPT/HCPCS: 36415; 70360; 70491; 71045; 71260; 74230; 76536; 76604; 80048; 80053; 81003; 82550; 82553; 83518; 83605; 83880; 84484; 85025; 85379; 85651; 86141; 86235; 86663; 86664; 86665; 87040; 87400; 93005; 94799; 96360; 96374; 99284; J0360; J0456; J0696; J3480; J7030; J7050; J7120; J7121; Q9967; U0002

== ENCOUNTER 2021-06-29 18:32 | Emergency (ER) | payer MEDICARE ==
[~2021-06-29] VITALS: Ht 149.9 cm; Wt 39.9 kg
[~2021-06-29 18:32] MED LIST changes: +BENZONATATE100 MG PO; +CELEBREX200 MG PO; +CLEOCIN HCL300 MG PO; +Combivent Respimat PO; +DILTIAZEM 24HR240 MG PO; +LISINOPRIL10 MG PO; +METHOCARBAMOL750 MG PO; +PANTOPRAZOLE SO40 MG PO; +SYMBICORT 16010.2 GM INH; +ZITHROMAX250 MG PO
== END 2021-06-29 23:22 | disposition home or self-care (01) ==
LOC: FSED 19:00
DX: S22.020A Wedge compression fracture of second thoracic vertebra, initial encounter for closed fracture (principal); M79.621 Pain in right upper arm; M79.18 Myalgia, other site; R91.8 Other nonspecific abnormal finding of lung field; I10 Essential (primary) hypertension; M19.09 Primary osteoarthritis, other specified site
CPT/HCPCS: 70450; 72125; 72192; 99283

== ENCOUNTER 2022-01-19 15:30 | Emergency (ER) | payer MEDICARE, OTHER ==
[~2022-01-19] VITALS: Ht 149.9 cm; Wt 38.6 kg
== END 2022-01-19 17:07 | disposition home or self-care (01) ==
LOC: FSED 15:34
DX: S01.01XA Laceration without foreign body of scalp, initial encounter (principal); W01.0XXA Fall on same level from slipping, tripping and stumbling without subsequent striking against object, initial encounter; Y93.01 Activity, walking, marching and hiking; Y92.89 Other specified places as the place of occurrence of the external cause
CPT/HCPCS: 70450; 99283

== ENCOUNTER 2022-01-28 10:51 | Emergency (ER) | payer MEDICARE ==
[~2022-01-28] VITALS: Ht 149.9 cm; Wt 38.6 kg
== END 2022-01-28 12:50 | disposition home or self-care (01) ==
LOC: FSED 12:07
DX: Z48.02 Encounter for removal of sutures (principal)
CPT/HCPCS: 99282; S0630

== ENCOUNTER 2022-08-29 21:04 | Inpatient (IN) | payer MEDICARE ==
[~2022-08-29] VITALS: Ht 144.8 cm; Wt 38.6 kg
[2022-08-29] MEDS ORDERED: ONDANSETRON HCL INJ 2MG/ML 2ML 2 MG/ML VIAL IV STA (21:46)
[2022-08-29] MEDS ORDERED: SODIUM CHLORIDE FLUSH 10 ML SYR IV PRN (21:50)
[2022-08-29 21:59] LABS: BASOPHILS % 0.1 % (0.0-1.0); EOSINOPHILS % 0.1 % (0.0-6.0); HEMATOCRIT 33.8 % (34.2-44.1); LYMPHOCYTES # (AUTO) 1.6 (1.0-3.2); LYMPHOCYTES % 10.4 % (18.0-39.1); MEAN CORPUSCULAR HEMOGLOBIN 26.8 pg (28-32); MEAN CORPUSCULAR HGB CONC 35.5 g/dL (31-35); MEAN CORPUSCULAR VOLUME 75.6 fL (81-99); MONOCYTES # (AUTO) 0.8 (0.2-0.8); MONOCYTES % 4.9 % (4.4-11.3); NEUTROPHILS # (AUTO) 13.3 (2.1-6.9); NEUTROPHILS % 83.9 % (38.7-80.0); PLATELET COUNT 228 x10e3/uL (140-360); RED BLOOD COUNT 4.47 x10e6/uL (3.6-5.1); RED CELL DISTRIBUTION WIDTH 14.2 % (11.7-14.4)
[2022-08-29 22:00] LABS: PROTHROMBIN TIME 13.7 seconds (11.9-14.5)
[2022-08-29] MEDS ORDERED: SODIUM CHLORIDE 0.9% 1000ML 1,000 ML IV ONE (22:00)
[2022-08-29 22:01] LABS: PARTIAL THROMBOPLASTIN TIME 34.2 seconds (23.8-35.5)
[2022-08-29 22:11] LABS: ALBUMIN 4.5 g/dL (3.5-5.0); ALBUMIN/GLOBULIN RATIO 1.2 (0.8-2.0); ANION GAP 16.5 mmol/L (8-16); CALCIUM 9.5 mg/dL (8.4-10.2); CREATININE, SERUM 0.68 mg/dL (0.57-1.11); POTASSIUM 3.5 mmol/L (3.5-5.1)
[2022-08-30] VITALS (8 sets, daily range): BP systolic 150–166; BP diastolic 62–88
[2022-08-30] MEDS ORDERED: KETOROLAC TROMETHAMINE 30 MG/ML VIAL ONE (00:08)
[2022-08-30 00:11] LABS: AMPHETAMINES SCREEN,URINE NEGATIVE (NEGATIVE); BENZODIAZEPINES SCREEN,URINE NEGATIVE (NEGATIVE); CLARITY,URINE CLEAR (CLEAR); COLOR,URINE YELLOW (YELLOW); KETONES,URINE 1+ (NEGATIVE); LEUKOCYTE ESTERASE ,URINE TRACE (NEGATIVE); NITRITE,URINE NEGATIVE (NEGATIVE); PHENCYCLIDINE SCREEN,URINE NEGATIVE (NEGATIVE); PROTEIN,URINE DIPSTICK 2+ (NEGATIVE); URINE UROBILINOGEN 0.2 mg/dL (0.2 - 1)
[2022-08-30] MEDS ORDERED: KETOROLAC TROMETHAMINE 30 MG/ML VIAL IV ONE (00:15)
[2022-08-30 00:20] LABS: AMORPHOUS SEDIMENT,URINE FEW (FEW); BACTERIA,URINE FEW /HPF; EPITHELIAL CELLS,URINE FEW /LPF; WBC,URINE (MAN) 0-5 /HPF (0-5)
[2022-08-30] MEDS ORDERED: ONDANSETRON HCL INJ 2MG/ML 2ML 2 MG/ML VIAL IV PRN (01:45)
[2022-08-30] MEDS: SODIUM CHLORIDE 0.9% 1000ML 1,000 ML IV SCH ×2 (02:13→02:20)
[2022-08-30] MEDS: LIDOCAINE 4% PATCH TP SCH (04:30)
[2022-08-30] MEDS ORDERED: IOPAMIDOL 370 MG/ML 100 ML INFUS..BTL INJ ONE (04:51)
[2022-08-30] MEDS ORDERED: Morphine 4mg INJECTION 4 MG/ML INJ IV PRN (09:00)
[2022-08-30] MEDS ORDERED: BISACODYL 10 MG SUPP PR PRN (09:00)
[2022-08-30] MEDS ORDERED: LACTULOSE SYRUP 20 GM/30 ML UDC PO PRN (09:00)
[2022-08-30] MEDS: DOCUSATE SODIUM 100 MG CAP PO SCH (09:40)
[2022-08-30] MEDS: POLYETHYLENE GLYCOL 3350 17 GM PACK PO SCH ×2 (09:40→16:42)
[2022-08-30] MEDS: METHOCARBAMOL 750 MG TAB PO PRN (09:40)
[2022-08-30] MEDS: PANTOPRAZOLE SOD 40 MG TABEC PO SCH (09:40)
[2022-08-30] MEDS: CELECOXIB 200 MG CAP PO SCH (09:40)
[2022-08-30] MEDS: SENNOSIDES 8.6 MG TAB PO SCH (09:40)
[2022-08-30] MEDS: LISINOPRIL 10 MG TAB PO SCH (09:41)
[2022-08-30] MEDS: DILTIAZEM HCL ER 120 MG CAP PO SCH (09:41)
[2022-08-30 12:12] LABS: ANION GAP 14.1 mmol/L (8-16); CALCIUM 8.4 mg/dL (8.4-10.2); CREATININE, SERUM 0.63 mg/dL (0.57-1.11); POTASSIUM 3.1 mmol/L (3.5-5.1)
[2022-08-30] MEDS: ENOXAPARIN SOD INJ 40 MG/0.4 ML SYR SC SCH (16:44)
[2022-08-30] MEDS: CEPACOL SORE THROAT LOZENGES PO PRN (16:45)
[2022-08-30] MEDS: SODIUM CHLORIDE 1 GM TAB PO SCH (20:11)
[2022-08-31] VITALS (8 sets, daily range): BP systolic 127–166; BP diastolic 48–73
[2022-08-31] MEDS: CEPACOL SORE THROAT LOZENGES PO PRN ×2 (02:28→10:31)
[2022-08-31 07:13] LABS: BASOPHILS # (AUTO) 0.1 (0.0-0.1); BASOPHILS % 0.9 % (0.0-1.0); EOSINOPHILS # (AUTO) 0.2 (0.0-0.4); EOSINOPHILS % 2.4 % (0.0-6.0); HEMATOCRIT 28.3 % (34.2-44.1); HEMOGLOBIN 9.5 g/dL (12.0-16.0); LYMPHOCYTES # (AUTO) 1.1 (1.0-3.2); LYMPHOCYTES % 12.9 % (18.0-39.1); MEAN CORPUSCULAR HEMOGLOBIN 26.8 pg (28-32); MEAN CORPUSCULAR HGB CONC 33.6 g/dL (31-35); MEAN CORPUSCULAR VOLUME 79.7 fL (81-99); MONOCYTES # (AUTO) 0.8 (0.2-0.8); NEUTROPHILS # (AUTO) 6.5 (2.1-6.9); NEUTROPHILS % 74.5 % (38.7-80.0); PLATELET COUNT 161 x10e3/uL (140-360); RED BLOOD COUNT 3.55 x10e6/uL (3.6-5.1); RED CELL DISTRIBUTION WIDTH 14.2 % (11.7-14.4)
[2022-08-31 07:28] LABS: ALBUMIN 3.2 g/dL (3.5-5.0); ALBUMIN/GLOBULIN RATIO 1.3 (0.8-2.0); ANION GAP 14.1 mmol/L (8-16); CALCIUM 8.1 mg/dL (8.4-10.2); CREATININE, SERUM 0.6 mg/dL (0.57-1.11); POTASSIUM 3.1 mmol/L (3.5-5.1)
[2022-08-31] MEDS ORDERED: POTASSIUM CHLORIDE 20 MEQ TAB CR PO STA ×2 (08:49→10:39)
[2022-08-31] MEDS: SENNOSIDES 8.6 MG TAB PO SCH (09:00)
[2022-08-31] MEDS: POLYETHYLENE GLYCOL 3350 17 GM PACK PO SCH ×2 (09:00→17:00)
[2022-08-31] MEDS: DOCUSATE SODIUM 100 MG CAP PO SCH (09:00)
[2022-08-31] MEDS: DILTIAZEM HCL ER 120 MG CAP PO SCH (09:05)
[2022-08-31] MEDS: CELECOXIB 200 MG CAP PO SCH (09:05)
[2022-08-31] MEDS: LISINOPRIL 10 MG TAB PO SCH (09:06)
[2022-08-31] MEDS: SODIUM CHLORIDE 1 GM TAB PO SCH (09:06)
[2022-08-31] MEDS: PANTOPRAZOLE SOD 40 MG TABEC PO SCH (09:06)
[2022-08-31] MEDS: METHOCARBAMOL 750 MG TAB PO PRN (09:19)
[2022-08-31 12:12] LABS: ANION GAP 12.2 mmol/L (8-16); CALCIUM 8.6 mg/dL (8.4-10.2); CREATININE, SERUM 0.64 mg/dL (0.57-1.11); POTASSIUM 3.2 mmol/L (3.5-5.1)
[2022-08-31 15:12] LABS: OSMOLALITY,SERUM OSMOMETER 232 mOsmol/kg (280-301)
[2022-08-31] MEDS: ENOXAPARIN SOD INJ 40 MG/0.4 ML SYR SC SCH (17:11)
[2022-08-31] MEDS: LIDOCAINE 4% PATCH TP PRN (19:01)
[2022-08-31 20:41] LABS: ANION GAP 13.3 mmol/L (8-16); CALCIUM 8.8 mg/dL (8.4-10.2); CREATININE, SERUM 0.72 mg/dL (0.57-1.11); POTASSIUM 4.3 mmol/L (3.5-5.1)
[2022-08-31] MEDS: ACETAMINOPHEN 325 MG TAB PO PRN (21:55)
[2022-09-01] VITALS (7 sets, daily range): BP systolic 128–176; BP diastolic 47–72
[2022-09-01 05:41] LABS: BASOPHILS # (AUTO) 0.1 (0.0-0.1); BASOPHILS % 0.8 % (0.0-1.0); EOSINOPHILS # (AUTO) 0.3 (0.0-0.4); HEMATOCRIT 27.3 % (34.2-44.1); HEMOGLOBIN 9.4 g/dL (12.0-16.0); LYMPHOCYTES # (AUTO) 1.3 (1.0-3.2); LYMPHOCYTES % 15.4 % (18.0-39.1); MEAN CORPUSCULAR HGB CONC 34.4 g/dL (31-35); MEAN CORPUSCULAR VOLUME 78.4 fL (81-99); MONOCYTES # (AUTO) 0.8 (0.2-0.8); NEUTROPHILS # (AUTO) 5.9 (2.1-6.9); NEUTROPHILS % 70.6 % (38.7-80.0); RED BLOOD COUNT 3.48 x10e6/uL (3.6-5.1); RED CELL DISTRIBUTION WIDTH 14.5 % (11.7-14.4)
[2022-09-01 05:44] LABS: PLATELET COUNT 142 x10e3/uL (140-360)
[2022-09-01 05:58] LABS: ALBUMIN 3.3 g/dL (3.5-5.0); ALBUMIN/GLOBULIN RATIO 1.3 (0.8-2.0); ANION GAP 12.5 mmol/L (8-16); CALCIUM 8.5 mg/dL (8.4-10.2); CREATININE, SERUM 0.6 mg/dL (0.57-1.11); MAGNESIUM 1.6 MG/DL (1.3-2.1); POTASSIUM 4.5 mmol/L (3.5-5.1)
[2022-09-01 06:24] LABS: FERRITIN 76.82 ng/mL (4.63-204.00)
[2022-09-01] MEDS: LISINOPRIL 20 MG TAB PO SCH (08:33)
[2022-09-01] MEDS: SENNOSIDES 8.6 MG TAB PO SCH (08:33)
[2022-09-01] MEDS: CELECOXIB 200 MG CAP PO SCH (08:33)
[2022-09-01] MEDS: PANTOPRAZOLE SOD 40 MG TABEC PO SCH (08:33)
[2022-09-01] MEDS: DOCUSATE SODIUM 100 MG CAP PO SCH (08:33)
[2022-09-01] MEDS: POLYETHYLENE GLYCOL 3350 17 GM PACK PO SCH ×2 (08:33→17:25)
[2022-09-01] MEDS: DILTIAZEM HCL ER 120 MG CAP PO SCH (08:33)
[2022-09-01] MEDS ORDERED: HYDRALAZINE HCL 20 MG/ML VIAL IV PRN (13:45)
[2022-09-01] MEDS: LIDOCAINE 4% PATCH TP SCH (13:46)
[2022-09-01] MEDS: ENOXAPARIN SOD INJ 40 MG/0.4 ML SYR SC SCH (17:25)
[2022-09-01] MEDS: METHOCARBAMOL 750 MG TAB PO PRN (17:32)
[2022-09-01] MEDS: ACETAMINOPHEN 325 MG TAB PO PRN (17:32)
[2022-09-02] VITALS (10 sets, daily range): BP systolic 131–174; BP diastolic 60–76
[2022-09-02 06:06] LABS: BASOPHILS # (AUTO) 0.1 (0.0-0.1); BASOPHILS % 0.8 % (0.0-1.0); EOSINOPHILS # (AUTO) 0.6 (0.0-0.4); EOSINOPHILS % 6.7 % (0.0-6.0); HEMATOCRIT 30.4 % (34.2-44.1); HEMOGLOBIN 10.3 g/dL (12.0-16.0); LYMPHOCYTES # (AUTO) 1.3 (1.0-3.2); MEAN CORPUSCULAR HEMOGLOBIN 27.1 pg (28-32); MEAN CORPUSCULAR HGB CONC 33.9 g/dL (31-35); MONOCYTES # (AUTO) 0.9 (0.2-0.8); MONOCYTES % 10.2 % (4.4-11.3); NEUTROPHILS # (AUTO) 5.5 (2.1-6.9); NEUTROPHILS % 66.1 % (38.7-80.0); PLATELET COUNT 181 x10e3/uL (140-360); RED CELL DISTRIBUTION WIDTH 14.9 % (11.7-14.4)
[2022-09-02 06:42] LABS: ALBUMIN 3.6 g/dL (3.5-5.0); ALBUMIN/GLOBULIN RATIO 1.3 (0.8-2.0); CALCIUM 9.1 mg/dL (8.4-10.2); CREATININE, SERUM 0.6 mg/dL (0.57-1.11); MAGNESIUM 1.6 MG/DL (1.3-2.1)
[2022-09-02] MEDS: DOCUSATE SODIUM 100 MG CAP PO SCH (08:32)
[2022-09-02] MEDS: DILTIAZEM HCL ER 120 MG CAP PO SCH (08:32)
[2022-09-02] MEDS: LISINOPRIL 20 MG TAB PO SCH (08:33)
[2022-09-02] MEDS: POLYETHYLENE GLYCOL 3350 17 GM PACK PO SCH ×2 (08:33→17:00)
[2022-09-02] MEDS: CELECOXIB 200 MG CAP PO SCH (08:33)
[2022-09-02] MEDS: HYDRALAZINE HCL 25 MG TAB PO SCH ×3 (08:33→20:30)
[2022-09-02] MEDS: PANTOPRAZOLE SOD 40 MG TABEC PO SCH (08:33)
[2022-09-02] MEDS: SENNOSIDES 8.6 MG TAB PO SCH (09:00)
[2022-09-02] MEDS: ENOXAPARIN SOD INJ 40 MG/0.4 ML SYR SC SCH (17:25)
[2022-09-02] MEDS: LIDOCAINE 4% PATCH TP PRN (18:18)
[2022-09-02] MEDS: METHOCARBAMOL 750 MG TAB PO PRN (20:30)
[2022-09-02] MEDS: CEPACOL SORE THROAT LOZENGES PO PRN (20:31)
[2022-09-02] MEDS: ACETAMINOPHEN 325 MG TAB PO PRN (20:31)
[2022-09-03] VITALS: BP 160/76
[2022-09-03 04:00] VITALS: BP 162/58
[2022-09-03] MEDS ORDERED: HYDRALAZINE HCL25 MG PO (06:43)
[2022-09-03] MEDS ORDERED: LISINOPRIL40 MG PO (06:43)
[2022-09-03] MEDS ORDERED: AUGMENTIN 500-1 EACH PO (06:43)
[2022-09-03 06:46] LABS: BASOPHILS # (AUTO) 0.1 (0.0-0.1); EOSINOPHILS # (AUTO) 0.5 (0.0-0.4); EOSINOPHILS % 7.8 % (0.0-6.0); HEMATOCRIT 31.2 % (34.2-44.1); HEMOGLOBIN 10.5 g/dL (12.0-16.0); LYMPHOCYTES # (AUTO) 1.8 (1.0-3.2); LYMPHOCYTES % 25.1 % (18.0-39.1); MEAN CORPUSCULAR HEMOGLOBIN 27.7 pg (28-32); MEAN CORPUSCULAR HGB CONC 33.7 g/dL (31-35); MEAN CORPUSCULAR VOLUME 82.3 fL (81-99); MONOCYTES # (AUTO) 0.7 (0.2-0.8); MONOCYTES % 10.2 % (4.4-11.3); NEUTROPHILS # (AUTO) 3.9 (2.1-6.9); NEUTROPHILS % 55.8 % (38.7-80.0); PLATELET COUNT 182 x10e3/uL (140-360); RED BLOOD COUNT 3.79 x10e6/uL (3.6-5.1); RED CELL DISTRIBUTION WIDTH 15.4 % (11.7-14.4)
[2022-09-03 07:15] LABS: CALCIUM 9.1 mg/dL (8.4-10.2); CREATININE, SERUM 0.62 mg/dL (0.57-1.11)
[2022-09-03 08:00] VITALS: BP 176/70
[2022-09-03] MEDS: DOCUSATE SODIUM 100 MG CAP PO SCH (08:02)
[2022-09-03] MEDS: DILTIAZEM HCL ER 120 MG CAP PO SCH (08:02)
[2022-09-03] MEDS: HYDRALAZINE HCL 25 MG TAB PO SCH (08:02)
[2022-09-03] MEDS: LISINOPRIL 20 MG TAB PO SCH (08:03)
[2022-09-03] MEDS: PANTOPRAZOLE SOD 40 MG TABEC PO SCH (08:03)
[2022-09-03] MEDS: CELECOXIB 200 MG CAP PO SCH (08:03)
[2022-09-03] MEDS: SENNOSIDES 8.6 MG TAB PO SCH (08:03)
[2022-09-03] MEDS: POLYETHYLENE GLYCOL 3350 17 GM PACK PO SCH (08:44)
[2022-09-03 09:00] VITALS: BP 176/70
[2022-09-03] MEDS ORDERED: SODIUM CHLORI1000 MG PO (09:07)
[2022-09-03] MEDS ORDERED: SODIUM CHLORIDE 1 GM TAB PO SCH (10:00)
[2022-09-03 12:00] VITALS: BP 147/73
[2022-09-03] MEDS ORDERED: MIRTAZAPINE15 MG PO (12:13)
[2022-09-03] MEDS ORDERED: ONDANSETRON HCL 4 MG ORAL DISINTEGRATING TAB PO PRN (12:30)
== END 2022-09-03 13:53 | disposition home or self-care (01) | DRG 190 ==
LOC: ER 21:20 → ERHOLD 08-30 01:38 → MED/SURG3 08-30 02:30
PROVIDERS: ADMIT Internal Medicine; ATTEND Internal Medicine
DX: J44.0 Chronic obstructive pulmonary disease with (acute) lower respiratory infection (principal); J18.9 Pneumonia, unspecified organism; E87.1 Hypo-osmolality and hyponatremia; J96.11 Chronic respiratory failure with hypoxia; Z99.81 Dependence on supplemental oxygen; G89.29 Other chronic pain; Z66 Do not resuscitate; M54.50 Low back pain, unspecified; K21.9 Gastro-esophageal reflux disease without esophagitis; K59.00 Constipation, unspecified; E87.6 Hypokalemia
CPT/HCPCS: 36415; 71045; 74177; 80048; 80053; 80307; 81001; 82607; 82728; 83540; 83690; 83735; 83930; 83935; 84295; 84300; 84466; 84484; 85025; 85610; 85730; 87040; 93005; 94799; 96365; 96366; 99285; J0696; J1650; J1885; J2270; J2405; J7030; J7050; Q9967